=== PATIENT | female | born 1990 | race Caucasian/White ===

== ENCOUNTER 2020-11-07 06:57 | Inpatient (IN) | payer OTHER, MEDICAID, SELFPAY ==
[2020-11-07] VITALS (113 sets, daily range): BP systolic 86–145; BP diastolic 55–98; PULSE 77–112; RESP 16–23; TEMP 36.4–37.6; O2SAT 90–100; BMI 36.7
--- NOTE | ~2020-11-07 | CT_ITS ---
EXAMINATION: CT abdomen pelvis wo con DATE: 11/08/2020 19:39 INDICATION: Unexplained nausea and vomiting, one day status post section TECHNIQUE: Computed tomography (CT) of the abdomen and pelvis was performed without intravenous contr ast. The dose-length product (DLP) was 1013.93 mGy-cm. Automated exposure control and iterative recon struction technique were employed. COMPARISON: None FINDINGS: The lung bases are clear. The heart size is normal. Within the limitations of noncontrast e xamination, the liver, spleen, pancreas, gallbladder, and adrenal glands are normal. There is a 2 mm nonobstructing stone of the right kidney. The left kidney is unremarkable. No pathologically enlarged abdominal or pelvic lymph nodes are identified. There is no free intraperitoneal gas or evidence of bowel obstruction. The uterus demonstrates an expected appearance. The appendix is normal. IMPRESSION: 1. No CT correlate for the patient's symptoms. Reviewed, dictated and finalized at location A.
--- NOTE | 2020-11-07 07:10 | PC.NURSE ---
Pt arrived for induction of labor for IUFD. Briefly explained plan for the day and that they would be allowed to have as many visitors as they need to help them through this time- including their children and any bilingual nanny/training developer. Informed them that due to the acuity of one of my other pt's it would be awhile before I could come in and get the process started. Pt has water and declines anything else from the fridge. Encouraged to rest.
--- NOTE | 2020-11-07 07:35 | PC.NURSE ---
Dr. Alcantar on unit and reviewed our normal IUFD order set with . OK'd those and added some additional labs. Discussed that pt has had 2 previous C/sections and dosage of Cytotec 200 mcg vaginally every 4 hrs confirmed.
--- NOTE | 2020-11-07 07:37 | PM.IMHP ---
H&P: HPI History of Present Illness Date/Time: 11/07/20 07:37 Chief Complaint: 15 week demise Narrative: Kelly is a with 15 week IUFD diagnosed in office last week. Is type 2 diabetic, A1C 10.0 at beginning of , last A1c a month ago was 7.2. History of 2 CS and PreE in prior pregnancies. Other loss was 9-10 week. Review of Systems Review of Systems: All systems reviewed & are unremarkable except as noted in HPI and below [facility] Past Medical History Medical History (Updated 11/07/20 @ 07:44 by Lluvia Alcantar MD) Type 2 diabetes mellitus Surgical History Surgical History (Updated 11/07/20 @ 07:44 by Lluvia Alcantar MD) Delivery by section Meds Home Medications and Allergies Allergies Allergy/AdvReac Type Severity Reaction Status Date / Time No Known Allergies Allergy Unknown Unverified 01/08/16 15:13 Exam Const: General: no acute distress Resp: Effort & Inspection: normal respiratory effort Auscultation: clear to auscultation bilaterally Cardio: Rate: regular rate Rhythm: regular rhythm GI: GI Palp: Yes Soft to palpation Extrem: General: normal to inspection Assessment and Plan Additional Plan induction for 15 week demise misoprostol TORCH labs, A1C, TSH, antiphospholipid antibodies Discussed POC with pt and SO. They are aware that delivery may be precipitous and provider may not be present until after. support given.
[2020-11-07] MEDS: miSOPROStol 200 MCG TABLET VAGINAL ×2 (10:19→14:23)
[2020-11-07 10:32] LABS: Basophils Percent Auto 0.2 % (0.2-1.2); Eosinophils Absolute Auto 0.1 K/mm3 (0-0.3); Eosinophils Percent Auto 0.9 % (0-4.4); Hematocrit 37.7 % (37.0-47.0); Hemoglobin 12.2 g/dL (12.0-15.0); Immature Granulocyte Absolute 0.02 K/mm3 (0.00-0.031); Immature Granulocyte Percent A 0.2 % (0-0.5); Lymphocytes Absolute Auto 3.31 K/mm3 (0.9-3.2); Lymphocytes Percent Auto 40.7 % (18.3-44.2); Mean Corpuscular HGB Conc 32.4 g/dl (32-36); Mean Corpuscular Hemoglobin 26.8 pg (26-34); Mean Corpuscular Volume 82.7 fl (80-100); Mean Platelet Volume 10.3 fl (7.4-10.4); Monocytes Absolute Auto 0.5 K/mm3 (0.1-0.6); Monocytes Percent Auto 6.4 % (2.6-8.5); Neutrophils Absolute Auto 4.2 K/mm3 (1.3-6.7); Neutrophils Percent Auto 51.6 % (45.5-73.1); Platelet Count Result 267 k/mm3 (150-375); Red Blood Count 4.56 M/mm3 (4.2-5.4); Red Cell Distribution Width 13.7 % (11.5-14.5); White Blood Count 8.1 K/mm3 (4.5-10.0)
[2020-11-07 10:55] LABS: Glucose 128 mg/dL (65-110)
[2020-11-07 11:16] LABS: Amphetamine Screen Urine Negative (Negative); Barbiturate Screen Urine Negative (Negative); Benzodiazepines Screen Urine Negative (Negative); Cannabinoid Screen Urine Negative (Negative); Cocaine Screen Urine Negative (Negative); Methadone Screen Urine Negative (Negative); Opiate Screen Urine Negative (Negative); Phencyclidine Screen Urine Negative (Negative)
[2020-11-07 11:27] LABS: Thyroid Stimulating Hormone 0.654 uIU/mL (0.465-4.680)
--- NOTE | 2020-11-07 11:30 | LDADM ---
This patient, Kelly Martin, was admitted to Labor/Delivery/Recovery 110 on 11/07/20 at 06:57. Plans for labor, pain management and were discussed with patient. Patient/family oriented to hospital policies and general routines including ID bracelet, bed and alarms, visiting hours, pain management, procedures, bathroom and other care routines, personal items, smoking policy, room service/diet and guest tray routines, security routines, and visiting hours. Patient/Family are encouraged to report perceived risks to care and to ask questions if they do not understand what they are told or what they should do. See OBIX for further documentation.
[2020-11-07 11:36] LABS: HIV 1/2 Ab P24 Ag Result Negative (Negative)
[2020-11-07 11:38] LABS: Free T4 Free Thyroxine 0.95 ng/mL (0.78-2.19)
[2020-11-07] MEDS: LACTATED RINGERS 1,000 ML 125 ML IV CONT (14:47)
[2020-11-07] MEDS: fentaNYL CITRATE INJ (*CRX) 100 MCG/2 ML VIAL 50 MCG IV PUSH ×3 (14:49→18:51)
[2020-11-07] MEDS: ONDANSETRON INJ 4 MG/2 ML VIAL IV PUSH (15:02)
--- NOTE | 2020-11-07 15:02 | PC.NURSE ---
Met with Pt and FOB; Share program and support presented to them, committing continued support to them once they leave the hospital. Parents seem receptive to Share support. Parents have chosen home disposition, with cremation. Consent signed and Home contacted. Will plan to see pt again after delivery.
[2020-11-07 15:10] LABS: Glucose Point of Care 110 mg/dl (65-105)
--- NOTE | 2020-11-07 16:18 | WPDANESEPP ---
Anes - Eval Pre Procedure Date/Time: 11/07/20 16:18 Pre Op Diagnosis: demise Patient Data Age: 30 Gender: F Height: 1.63 m Weight: 97 kg Last Vital Signs Temp 37.1 C 11/07/20 15:30 Pulse 99 11/07/20 16:18 BP 128/60 11/07/20 16:18 Pulse Ox 99 11/07/20 16:18 Allergies Allergy/AdvReac Type Severity Reaction Status Date / Time No Known Allergies Allergy Unknown Verified 11/07/20 11:34 Home Medications Medication Instructions Recorded Confirmed Type famotidine 20 mg PO BID 11/07/20 11/07/20 History insulin glargine [Lantus Solostar 47 unit SUBCUT QACBREAK 11/07/20 11/07/20 History U-100 Insulin] insulin glargine [Lantus Solostar 78 unit SUBCUT HS 11/07/20 11/07/20 History U-100 Insulin] metoclopramide HCl 5 mg PO Q1-2D PRN 11/07/20 11/07/20 History omeprazole 40 mg PO DAILY 11/07/20 11/07/20 History ondansetron 8 mg PO Q8H PRN 11/07/20 11/07/20 History sucralfate 1 g PO QID 11/07/20 11/07/20 History Laboratory Tests 11/07/20 11/07/20 11/07/20 09:47 09:47 09:47 WBC 8.1 K/mm3 K/mm3 (4.5-10.0) RBC 4.56 M/mm3 M/mm3 (4.2-5.4) Hgb 12.2 g/dL g/dL (12.0-15.0) Hct 37.7 % % (37.0-47.0) MCV 82.7 fl fl (80-100) MCH 26.8 pg pg (26-34) MCHC 32.4 g/dl g/dl (32-36) RDW 13.7 % % (11.5-14.5) Plt Count 267 k/mm3 k/mm3 (150-375) MPV 10.3 fl fl (7.4-10.4) Immature Gran % (Auto) 0.2 % % (0-0.5) Neut % (Auto) 51.6 % % (45.5-73.1) Lymph % (Auto) 40.7 % % (18.3-44.2) [place] % (Auto) 6.4 % % (2.6-8.5) Eos % (Auto) 0.9 % % (0-4.4) Baso % (Auto) 0.2 % % (0.2-1.2) Lymph # (Auto) 3.31 K/mm3 H K/mm3 (0.9-3.2) [place] # (Auto) 0.5 K/mm3 K/mm3 (0.1-0.6) Eos # (Auto) 0.1 K/mm3 K/mm3 (0-0.3) Baso # (Auto) 0.0 K/mm3 K/mm3 (0.0-0.1) Abs Immat Gran (auto) 0.02 K/mm3 K/mm3 (0.00-0.031) Absolute Neuts (auto) 4.2 K/mm3 K/mm3 (1.3-6.7) Absolute Nucleated RBC 0.0 K/mm3 K/mm3 (0.0-0.012) Nucleated RBC % 0.0 % % (0.0-0.2) LA PTT Screen Pending dRVVT Screen Pending dRVVT Additional Test Pending Lupus Anticoag Interp Pending Glucose 128 mg/dL H mg/dL (65-110) POC Capillary Glucose TSH 0.654 uIU/mL uIU/mL (0.465-4.680) Free T4 Urine Opiates Screen Urine Methadone Screen Ur Barbiturates Screen Ur Phencyclidine Scrn Ur Amphetamine Screen U Benzodiazepines Scrn Urine Cocaine Screen U Cannabinoids Screen Beta-2-GPI IgG Ab Beta-2-GPI IgA Ab Beta-2-GPI IgM Ab Anti-Cardiolipin IgG Ab Anti-Cardiolipin IgA Ab Anti-Cardiolipin IgM Ab RPR CMV IgG Ab CMV IgM Ab HIV 1&2 Ab/P24 Ag 4thGn Parvovirus B19 IgG Intp Parvovirus B19 IgM Intp Toxoplasma IgG Ab Toxoplasma IgM Ab Blood Type Antibody Screen KB Hemoglobin 11/07/20 11/07/20 11/07/20 09:47 09:47 09:47 WBC RBC Hgb Hct MCV MCH MCHC RDW Plt Count MPV Immature Gran % (Auto) Neut % (Auto) Lymph % (Auto) [place] % (Auto) Eos % (Auto) Baso % (Auto) Lymph # (Auto) [place] # (Auto) Eos # (Auto) Baso # (Auto) Abs Immat Gran (auto) Absolute Neuts (auto) Absolute Nucleated RBC Nucleated RBC % LA PTT Screen dRVVT S
--- NOTE | 2020-11-07 17:12 | PM.OBPRVD ---
OB - Delivery Note Procedure Delivery date: 11/07/20 Procedure: vaginal delivery Intrapartal events: Other (IUFD) Induction method: per misoprostol protocol Delivery monitor: none Route of delivery: Laceration Description: None Specimen: Yes [place] Baby Date of : 11/07/20 Time of : 16:56 Weeks of gestation at delivery: 15 gender: Female Narrative: fetus delivered, cord cut and clamped and handed to mother
--- NOTE | 2020-11-07 19:05 | PM.IMHP ---
H&P: HPI History of Present Illness Date/Time: 11/07/20 19:05 This patient is a 30-year-old multiparous female who presented labor and delivery for induction of Miscarriage for a 3rd team to 14 week missed AB. she passed the fetus approximately the 40 minutes ago and has continued to bleed. The placenta has not passed. She remains asymptomatic from the bleeding. She denies any chest pain or shortness of breath. She denies any nausea, vomiting, fever, chills. Chief Complaint: post hemorrhage Review of Systems Constitutional: Constitutional: Reports no additional constitutional complaints, Denies fatigue, Denies headache(s), Denies lethargy and Denies weakness Eyes: Eyes: Reports no additional eye complaints, Denies blurry vision and Denies photophobia ENT: Reports as per HPI, Denies headache(s) and Denies neck pain Cardiovascular: Cardiovascular: Denies chest pain, Denies diaphoresis, Denies leg edema, Denies palpitations and Denies dyspnea Respiratory: Respiratory: Denies hemoptysis, Denies dyspnea and Denies wheezing Gastrointestinal: Gastrointestinal: Denies abdominal pain, Denies melena, Denies bloating, Denies hematochezia, Denies nausea and Denies vomiting Genitourinary: Genitourinary: Reports no additional female genitourinary complaints Musculoskeletal: Musculoskeletal: Denies joint swelling, Denies neck pain, Denies numbness and Denies stiffness Neurologic: Denies Abnormal speech present, Denies confusion, Denies headache(s), Denies numbness and Denies weakness Psychiatric: Psychiatric: Denies anxiety, Denies confusion, Denies depression, Denies homicidal ideation and Denies suicidal ideation Endocrine: Endocrine: Denies fatigue and Denies palpitations Allergic/Immunologic: Allergic/Immunologic: Denies wheezing PMFSH Past Medical History Medical History Type 2 diabetes mellitus Surgical History Surgical History Delivery by section Family History Family History Mother Diabetes mellitus Father Diabetes mellitus Sibling Diabetes mellitus Social History Social History Smoking status: Never smoker Second hand tobacco smoke exposure: No Substance use: never Spiritual care concerns: No Meds Home Medications and Allergies Home Medications Medication Instructions Recorded Confirmed Type famotidine 20 mg PO BID 11/07/20 11/07/20 History insulin glargine [Lantus Solostar 47 unit SUBCUT QACBREAK 11/07/20 11/07/20 History U-100 Insulin] insulin glargine [Lantus Solostar 78 unit SUBCUT HS 11/07/20 11/07/20 History U-100 Insulin] metoclopramide HCl 5 mg PO Q1-2D PRN 11/07/20 11/07/20 History omeprazole 40 mg PO DAILY 11/07/20 11/07/20 History ondansetron 8 mg PO Q8H PRN 11/07/20 11/07/20 History sucralfate 1 g PO QID 11/07/20 11/07/20 History Allergies Allergy/AdvReac Type Severity Reaction Status Date / Time No Known Allergies Allergy Unknown Verified 11/07/20 11:34 Vital Signs Vital Signs - 24 hr 11/07/20 10:15 11/07/20 10:16 11/07/20 10:48 Temperature 98.7 F Pulse Rate 79 79 Blood Pressure 123/72 120/75 Pulse Oximetry 11/07/20 10:59 11/07/20 11:30 11/07/20 11:59 Temperature Pulse Rate 80 77 86 Blood Pressure 134/87 129/73 135/79 Pulse Oximetry 11/07/20 12:29 11/07/20 12:59 11/07/20 13:00 Temperature 97.8 F Pulse Rate 84 81 Blood Pressure 132/81 133/78 Pulse Oximetry 11/07/20 13:59 11/07/20 14:00 11/07/20 14:29 Temperature 98.4 F Pulse Rate 88 85 Blood Pressure 133/83 132/76 Pulse Oximetry 11/07/20 14:59 11/07/20 15:00 11/07/20 15:29 Temperature 98.3 F Pulse Rate 93 89 Blood Pressure 125/71 133/71 Pulse Oximetry 11/07/20 15:30 11/07/20 15:40 11/07/20 15:4
--- NOTE | 2020-11-07 19:21 | WPDANESEPPF ---
Anes - Initial Pre Proc Eval Procedure: Operation Date: 11/07/20 19:45 Proposed Procedures p D&C Suction and Sharp - Rd Bui MD Date/Time: 11/07/20 19:21 Surgeon: Rd Bui MD Pre Op Diagnosis: demise Patient Data Age: 30 Gender: F Height: 1.63 m Weight: 97 kg Last Vital Signs Temp 37.6 C 11/07/20 16:30 Pulse 99 11/07/20 19:15 BP 125/67 11/07/20 19:15 Pulse Ox 100 11/07/20 19:18 Allergies Allergy/AdvReac Type Severity Reaction Status Date / Time No Known Allergies Allergy Unknown Verified 11/07/20 11:34 Home Medications Medication Instructions Recorded Confirmed Type famotidine 20 mg PO BID 11/07/20 11/07/20 History insulin glargine [Lantus Solostar 47 unit SUBCUT QACBREAK 11/07/20 11/07/20 History U-100 Insulin] insulin glargine [Lantus Solostar 78 unit SUBCUT HS 11/07/20 11/07/20 History U-100 Insulin] metoclopramide HCl 5 mg PO Q1-2D PRN 11/07/20 11/07/20 History omeprazole 40 mg PO DAILY 11/07/20 11/07/20 History ondansetron 8 mg PO Q8H PRN 11/07/20 11/07/20 History sucralfate 1 g PO QID 11/07/20 11/07/20 History Laboratory Tests 11/07/20 11/07/20 11/07/20 09:47 09:47 09:47 WBC 8.1 K/mm3 K/mm3 (4.5-10.0) RBC 4.56 M/mm3 M/mm3 (4.2-5.4) Hgb 12.2 g/dL g/dL (12.0-15.0) Hct 37.7 % % (37.0-47.0) MCV 82.7 fl fl (80-100) MCH 26.8 pg pg (26-34) MCHC 32.4 g/dl g/dl (32-36) RDW 13.7 % % (11.5-14.5) Plt Count 267 k/mm3 k/mm3 (150-375) MPV 10.3 fl fl (7.4-10.4) Immature Gran % (Auto) 0.2 % % (0-0.5) Neut % (Auto) 51.6 % % (45.5-73.1) Lymph % (Auto) 40.7 % % (18.3-44.2) [place] % (Auto) 6.4 % % (2.6-8.5) Eos % (Auto) 0.9 % % (0-4.4) Baso % (Auto) 0.2 % % (0.2-1.2) Lymph # (Auto) 3.31 K/mm3 H K/mm3 (0.9-3.2) [place] # (Auto) 0.5 K/mm3 K/mm3 (0.1-0.6) Eos # (Auto) 0.1 K/mm3 K/mm3 (0-0.3) Baso # (Auto) 0.0 K/mm3 K/mm3 (0.0-0.1) Abs Immat Gran (auto) 0.02 K/mm3 K/mm3 (0.00-0.031) Absolute Neuts (auto) 4.2 K/mm3 K/mm3 (1.3-6.7) Absolute Nucleated RBC 0.0 K/mm3 K/mm3 (0.0-0.012) Nucleated RBC % 0.0 % % (0.0-0.2) LA PTT Screen Pending dRVVT Screen Pending dRVVT Additional Test Pending Lupus Anticoag Interp Pending Glucose 128 mg/dL H mg/dL (65-110) POC Capillary Glucose TSH 0.654 uIU/mL uIU/mL (0.465-4.680) Free T4 Urine Opiates Screen Urine Methadone Screen Ur Barbiturates Screen Ur Phencyclidine Scrn Ur Amphetamine Screen U Benzodiazepines Scrn Urine Cocaine Screen U Cannabinoids Screen Beta-2-GPI IgG Ab Beta-2-GPI IgA Ab Beta-2-GPI IgM Ab Anti-Cardiolipin IgG Ab Anti-Cardiolipin IgA Ab Anti-Cardiolipin IgM Ab RPR CMV IgG Ab CMV IgM Ab HIV 1&2 Ab/P24 Ag 4thGn Parvovirus B19 IgG Intp Parvovirus B19 IgM Intp Toxoplasma IgG Ab Toxoplasma IgM Ab Blood Type Antibody Screen KB Hemoglobin 11/07/20 11/07/2011/07/21 09:47 09:47 09:47 WBC RBC Hgb Hct MCV MCH MCHC RDW Plt Count MPV Immature Gran % (Auto) Neut % (Auto) Lymph % (Auto) [place] % (Auto) Eos % (Auto) Baso % (Auto) Lymph # (Auto) [place] # (Auto) Eos # (Auto) Baso # (Auto) Abs Immat Gran (au
--- NOTE | 2020-11-07 19:53 | SUR.OPER ---
EPIDURAL REMOVED PER ANESTHESIA/TIP OF CATHETER INTACT.
[2020-11-07] MEDS: LACTATED RINGERS 1,000 ML 30 ML IV CONT (19:59)
--- NOTE | 2020-11-07 20:07 | W.PM.PROC2 ---
Procedure Note - Detailed Date of Procedure 11/07/20 Pre-op Diagnosis retained placenta, missed Post-op Diagnosis same Procedure Performed Suction D&C Surgeon Rd Bui MD Anesthesia MAC Indications retained placenta Findings normal-appearing vulva vagina and cervix to. placenta near the cervical os, 14 cm uterus, severely anteverted uterus Description of Procedure the patient was taken the operating room. She was prepped and draped in dorsal lithotomy position after induction of mac anesthesia. A speculum was placed in the vagina. Cervix grasped with tenaculum. The cervix was dilated to about 1 cm Using Perez dilators. A 10. [place] curved curette was used to perform suction D&C. The curette was introduced and vacuum was applied. The curette was removed over all surfaces of the intrauterine cavity multiple times. This was done until all the surfaces were clear and had the familiar grainy texture they can be felt through the instrument. A sharp curette was then used to curettage all the surfaces. The suction cup was then reapplied 1 more time to remove any debris. The instruments were removed. The speculum and tenaculum were removed. The patient tolerated the procedure well. She was taken recovery room stable condition. Estimated Blood Loss 100.0 Drains No Packing No Pathology yes Complications No immediate complications Condition stable Disposition floor
[2020-11-07 20:35] LABS: Hemoglobin A1C 6.2 % (<5.7)
--- NOTE | 2020-11-07 20:44 | SUR.PHASEI ---
PT REPORT CALLED TO FLOOR. AWAITING TRANSPORT
[2020-11-07 22:44] LABS: Glucose Point of Care 112 mg/dl (65-105)
[2020-11-08] VITALS (18 sets, daily range): BP systolic 115–150; BP diastolic 66–86; PULSE 85–104; RESP 16–18; TEMP 36.3–37.2; O2SAT 99–100
[2020-11-08] MEDS: IBUPROFEN 600 MG TABLET PO (05:45)
[2020-11-08 07:22] LABS: Glucose Point of Care 121 mg/dl (65-105)
[2020-11-08] MEDS: ACETAMINOPHEN 325 MG TABLET 650 MG PO (07:27)
[2020-11-08] MEDS: ONDANSETRON HCL ODT 4 MG TABLET 8 MG PO (07:28)
[2020-11-08 07:35] LABS: Hematocrit 31.8 % (37.0-47.0); Hemoglobin 10.2 g/dL (12.0-15.0)
--- NOTE | 2020-11-08 07:35 | PC.NURSE ---
John Vernon here to see pt; informed that [facility] is down and they are currently outsourcing that service to a 3rd constitution party that charges almost $500 dollars for a cremation. He will make some calls this morning to see what else might be available.
--- NOTE | 2020-11-08 07:50 | PC.NURSE ---
John Vernon called back with another option for cremation for them to consider.
--- NOTE | 2020-11-08 08:00 | PC.NURSE ---
Addendum entered by Velma Alcaraz RN 11/08/20 09:10: per pt request. Original Note: Pt still nauseated after emesis. Holding PO meds for now.
--- NOTE | 2020-11-08 08:17 | PC.NURSE ---
Dr. Bui on unit and informed pt's Hgb is 10.2, her accucheck was 121, pt is feeling a lot of cramping but her bleeding is normal, pt nauseated and had an emesis this morning. MD in to see and talk with pt and significant other.
--- NOTE | 2020-11-08 08:19 | PM.OBPNVD ---
OB - PN: Subj Subjective Date/time seen: 11/08/20 08:19 Patient reports nausea this a.m., she vomited once. She receiving Zofran. Her bleeding is minimal. She denies any fever or chills. OB - PN: Obj Data Labs CBC & Chem 7: 11/08/20 06:58 11/07/20 09:47 Labs: Laboratory Results - last 24 hr 11/07/20 11/07/20 11/07/20 09:28 09:47 09:47 WBC 8.1 RBC 4.56 Hgb 12.2 Hct 37.7 MCV 82.7 MCH 26.8 MCHC 32.4 RDW 13.7 Plt Count 267 MPV 10.3 Immature Gran % (Auto) 0.2 Neut % (Auto) 51.6 Lymph % (Auto) 40.7 [place] % (Auto) 6.4 Eos % (Auto) 0.9 Baso % (Auto) 0.2 Lymph # (Auto) 3.31 H [place] # (Auto) 0.5 Eos # (Auto) 0.1 Baso # (Auto) 0.0 Abs Immat Gran (auto) 0.02 Absolute Neuts (auto) 4.2 Absolute Nucleated RBC 0.0 Nucleated RBC % 0.0 Glucose 128 H POC Capillary Glucose Hemoglobin A1c 6.2 H TSH 0.654 Free T4 Urine Opiates Screen Urine Methadone Screen Ur Barbiturates Screen Ur Phencyclidine Scrn Ur Amphetamine Screen U Benzodiazepines Scrn Urine Cocaine Screen U Cannabinoids Screen HIV 1&2 Ab/P24 Ag 4thGn Blood Type Antibody Screen KB Hemoglobin 11/07/20 11/07/20 11/07/20 09:47 09:47 09:47 WBC RBC Hgb Hct MCV MCH MCHC RDW Plt Count MPV Immature Gran % (Auto) Neut % (Auto) Lymph % (Auto) [place] % (Auto) Eos % (Auto) Baso % (Auto) Lymph # (Auto) [place] # (Auto) Eos # (Auto) Baso # (Auto) Abs Immat Gran (auto) Absolute Neuts (auto) Absolute Nucleated RBC Nucleated RBC % Glucose POC Capillary Glucose Hemoglobin A1c TSH Free T4 0.95 Urine Opiates Screen Urine Methadone Screen Ur Barbiturates Screen Ur Phencyclidine Scrn Ur Amphetamine Screen U Benzodiazepines Scrn Urine Cocaine Screen U Cannabinoids Screen HIV 1&2 Ab/P24 Ag 4thGn Negative Blood Type Antibody Screen KB Hemoglobin Negative 11/07/20 11/07/20 11/07/20 09:47 09:51 14:29 WBC RBC Hgb Hct MCV MCH MCHC RDW Plt Count MPV Immature Gran % (Auto) Neut % (Auto) Lymph % (Auto) [place] % (Auto) Eos % (Auto) Baso % (Auto) Lymph # (Auto) [place] # (Auto) Eos # (Auto) Baso # (Auto) Abs Immat Gran (auto) Absolute Neuts (auto) Absolute Nucleated RBC Nucleated RBC % Glucose POC Capillary Glucose 110 H Hemoglobin A1c TSH Free T4 Urine Opiates Screen Negative Urine Methadone Screen Negative Ur Barbiturates Screen Negative Ur Phencyclidine Scrn Negative Ur Amphetamine Screen Negative U Benzodiazepines Scrn Negative Urine Cocaine Screen Negative U Cannabinoids Screen Negative HIV 1&2 Ab/P24 Ag 4thGn Blood Type O Positive Antibody Screen Negative KB Hemoglobin 11/07/20 11/08/20 11/08/20 22:42 06:58 07:07 WBC RBC Hgb 10.2 L Hct 31.8 L MCV MCH MCHC RDW Plt Count MPV Immature Gran % (Auto) Neut % (Auto) Lymph % (Auto) [place] % (Auto) Eos % (Auto) Baso % (Auto) Lymph # (Auto) [place] # (Auto) Eos # (Auto) Baso # (Auto) Abs Immat Gran (auto) Absolute Neuts (auto) Absolute Nucleated RBC Nucleated RBC % Glucose POC Capillary Glucose 112 H 121 H Hemoglobin A1c TSH Free T4 Urine Opiates Screen Urine Methadone Screen Ur Barbiturates Screen Ur Phencyclidine Scrn Ur Amphetamine Screen U Benzodiazepines Scrn Urine Cocaine Screen U Cannabinoids Screen HIV 1&2 Ab/P24 Ag 4thGn Blood Type Antibody Screen KB Hemoglobin OB - PN A/P Assessment and Plan (1) Missed : Code(s): O02.1 - Missed Status: Acute (2) hemorrhage: Code(s): O72.1 - Other
--- NOTE | 2020-11-08 08:20 | PC.NURSE ---
Pt and significant other informed the Trevor called back and was able to find [facility] in [place] that would perform the cremation for only the cost of the legal fees required to do the paperwork for the cremation, but no actual charge for performing the creation. They would like to proceed with this home.
--- NOTE | 2020-11-08 08:30 | PC.NURSE ---
Pt and Chris are going to try to sleep again. remains at bedside on [place] [address]. Informed pt that I wouldn't come in to wake her; waiting for her to call me when she is awake.
[2020-11-08 09:05] LABS: Rapid Plasma Reagin Non-Reactive (NonReactive)
--- NOTE | 2020-11-08 11:00 | PC.NURSE ---
Pt states she had over a 2 hr nap and woke up feeling fine, but became nauseated and had an emesis when she was up to the bathroom. Pt states she feels like she needs to void, but can't.
--- NOTE | 2020-11-08 11:05 | PC.NURSE ---
Small rubra was noted on peripad. Assisted back to bed. Unable to palpate any bladder distention, but pt does have some right sided suprapubic discomfort with palpation.
[2020-11-08] MEDS: SUCRALFATE 1 GM TABLET PO ×2 (11:06→13:41)
--- NOTE | 2020-11-08 11:15 | PC.NURSE ---
Rosana Chaney RN from mom baby unit here and performed bladder scan to r/o bladder distention- results were 0, 48 and 80 ml.
--- NOTE | 2020-11-08 11:20 | PC.NURSE ---
Dr. Bui informed pt didn't eat this morning, am meds of metformin, carafate, and omeprazole were held this am due to N & V. Pt had over a 2 hr nap and initially felt good, but became nauseated with emesis when she got up. Informed of pt's c/o urge to urinate, but unable to void- has only voided 100 ml this am. Informed had Hanna from mom/baby unit perform bladder scan and 0-80 ml were seen in bladder. Orders received.
[2020-11-08] MEDS: LACTATED RINGERS 1,000 ML 200 ML IV CONT (12:05)
[2020-11-08] MEDS: METOCLOPRAMIDE HCL INJ 10 MG/2 ML VIAL IV PUSH ×2 (12:08→19:07)
[2020-11-08] MEDS: FAMOTIDINE 20 MG/2 ML VIAL IV PUSH (12:11)
--- NOTE | 2020-11-08 13:16 | PC.NURSE ---
Orthostatic BP's done as up assisted up to bathroom.
--- NOTE | 2020-11-08 13:30 | PC.NURSE ---
Pt states she felt like she was able to fully empty her bladder. Denies nausea. Lower abdominal cramping is only a 1.
[2020-11-08] MEDS: PANTOPRAZOLE 40 MG TABLET PO (13:34)
[2020-11-08] MEDS: metFORMIN HCL 500 MG TABLET PO (13:36)
--- NOTE | 2020-11-08 13:41 | PC.NURSE ---
Pt willing to try ordering some food. AM meds (Metformin and Carafate) that were held due to nausea and vomiting were given. Pt has a menu and the phone to order.
--- NOTE | 2020-11-08 14:20 | PC.NURSE ---
Fetus taken to pathology with Release of Body consent and copy of Disposition consent.
--- NOTE | 2020-11-08 14:30 | PC.NURSE ---
Pt wanting to go home, but with recent emesis, informed pt I would like her to at least nibble on some food and be able to keep some liquids down first.
--- NOTE | 2020-11-08 14:50 | PC.NURSE ---
Jello and diet white soda given since pt didn't like her beef broth.
--- NOTE | 2020-11-08 16:13 | PC.NURSE ---
Pt states she isn't feeling nauseated, but having a lot of belching.
--- NOTE | 2020-11-08 16:14 | PC.NURSE ---
Called Dr. Bui and informed him pt would like to go home. Informed him of continued intermittent nausea with emesis today with limited oral intake, afebrile, small lochia, informed of orthostatic BP's. Discussed that pt only took Levemir and an am Metformin prior to . Informed blood glucose is now 150. Discharge meds adjusted and order for discharge received.
--- NOTE | 2020-11-08 16:45 | PC.NURSE ---
Dr. Bui informed pt had another emesis as I was preparing her discharge report. Pt still wants to go home, but I'm concerned she won't be able to eat or drink at home. Orders received for new IV fluids, CBC and CMP.
[2020-11-08] MEDS: DEXTROSE 5%/LACTATED RINGERS 1,000 ML 200 ML IV CONT (17:25)
[2020-11-08 17:44] LABS: Basophils Percent Auto 0.2 % (0.2-1.2); Eosinophils Absolute Auto 0.1 K/mm3 (0-0.3); Eosinophils Percent Auto 0.4 % (0-4.4); Hematocrit 32.5 % (37.0-47.0); Hemoglobin 10.7 g/dL (12.0-15.0); Immature Granulocyte Absolute 0.05 K/mm3 (0.00-0.031); Immature Granulocyte Percent A 0.4 % (0-0.5); Lymphocytes Absolute Auto 2.35 K/mm3 (0.9-3.2); Lymphocytes Percent Auto 19.2 % (18.3-44.2); Mean Corpuscular HGB Conc 32.9 g/dl (32-36); Mean Corpuscular Volume 81.9 fl (80-100); Mean Platelet Volume 10.5 fl (7.4-10.4); Monocytes Absolute Auto 0.6 K/mm3 (0.1-0.6); Monocytes Percent Auto 4.9 % (2.6-8.5); Neutrophils Absolute Auto 9.2 K/mm3 (1.3-6.7); Neutrophils Percent Auto 74.9 % (45.5-73.1); Platelet Count Result 281 k/mm3 (150-375); Red Blood Count 3.97 M/mm3 (4.2-5.4); Red Cell Distribution Width 13.6 % (11.5-14.5); White Blood Count 12.3 K/mm3 (4.5-10.0)
[2020-11-08 17:53] LABS: Alanine Aminotransferase 14 U/L (4-35); Albumin Level 3.7 g/dL (3.5-5.1); Alkaline Phosphatase 56 U/L (38-126); Anion Gap 7 mmol/L (8-16); Aspartate Amino Transferase 18 U/L (14-36); Bilirubin,Total 0.6 mg/dL (0.2-1.3); Calcium 8.9 mg/dL (8.4-10.2); Carbon Dioxide 24 mmol/L (22-30); Chloride 103 mmol/L (98-107); Estimated CRCL calculation 236 ml/min; Estimated Glomerular Filt Rate > 60; Glucose 148 mg/dL (65-110); Potassium 3.6 mmol/L (3.4-5.0); Sodium 134 mmol/L (137-145)
[2020-11-08 18:19] LABS: Glucose Point of Care 150 mg/dl (65-105)
[2020-11-08 18:35] LABS: Blood Urea Nitrogen < 2 mg/dL (7-17)
--- NOTE | 2020-11-08 18:35 | PC.NURSE ---
Dr. Bui informed of lab results. Orders received. Discussed insulin orders that are still on her med sheet and the omeprazole and carafate that pt doesn't want to take anymore. Discussed that he was going to send her home on antibiotics, but she hasn't received any today. OK to cancel insulin. To call MD for BS >200.
[2020-11-08] MEDS: metroNIDAZOLE 500 MG/ISO 100ML 500 MG/100 ML BAG 100 MG IVPB (20:09)
[2020-11-08 20:26] LABS: Glucose Point of Care 161 mg/dl (65-105)
[2020-11-08] MEDS: levoFLOXacin 500 MG/D5W 100 ML 500 MG/100 ML BAG 100 MG IVPB (21:45)
[2020-11-09 00:13] LABS: Glucose Point of Care 152 mg/dl (65-105)
[2020-11-09] MEDS: ONDANSETRON INJ 4 MG/2 ML VIAL IV PUSH ×2 (00:17→06:16)
[2020-11-09] MEDS: FAMOTIDINE 20 MG/2 ML VIAL IV PUSH (00:20)
[2020-11-09 00:26] VITALS: PULSE 92; O2SAT 98
[2020-11-09 00:27] VITALS: BP 122/74; PULSE 93
[2020-11-09 00:28] VITALS: RESP 18; TEMP 36.4
--- NOTE | 2020-11-09 00:50 | PC.NURSE ---
0010 - upon entering the pt room to obtain blood sugar, pt was sitting up awake stating she was nauseated and would like some nausea medicine. Scant emesis noted in emesis bag. pt states she feels good otherwise, denies any pain.
--- NOTE | 2020-11-09 00:53 | PC.NURSE ---
0025 - Plan of care discussed with pt; pt agrees and states she has no questions or concerns at this time. Pt states she will call out if she has any needs.
[2020-11-09] MEDS: DEXTROSE 5%/LACTATED RINGERS 1,000 ML 200 ML IV CONT ×2 (01:12→06:12)
[2020-11-09 04:23] LABS: Glucose Point of Care 173 mg/dl (65-105)
--- NOTE | 2020-11-09 04:24 | PC.NURSE ---
0421 - pt just waking upon entering the room. Pt denies any pain or nausea. Pt denies any needs at this time, and will call out if she has any needs. Call light within reach.
--- NOTE | 2020-11-09 08:21 | PM.GYNPNOP ---
CIRCUIT COURT MAGISTRATE - A/P Postoperative Procedures: Procedures Operation Date: 11/07/20 19:45 Actual Procedure Side Surgeon p D&C Suction and Sharp Not Applicable Rd Bui MD Postoperative day: 2 Postoperative plan: other (HOme today if tolerating food.) Time Spent With Patient Time: Total time spent is greater than 50% in coordination of care (as documented) at patient's floor/unit and/or counseling patient: Time with patient: less than [address] MAGISTRATE- PN:Subj Post-Op Subjective Date/time seen: 11/09/20 08:21 Interval history: Tolerating clears with no emesis since around midnight. No nausea now. Bleeding minimal. Feels ok. Wants to go home. Subjective: patient reports feeling better Exam Narrative: NAD abdomen soft, nontender, fundus firm below the umbilicus Extremities nontender, 1+ edema [facility] MAGISTRATE - PN: Obj Data Vital Signs Vital Signs: Vital Signs - 24 hr 11/08/20 12:14 11/08/20 12:15 11/08/20 13:16 Temperature 98.8 F 99.0 F Pulse Rate 91 104 H Respiratory Rate 18 Blood Pressure 126/69 146/78 H Pulse Oximetry 100 100 11/08/20 13:17 11/08/20 13:18 11/08/20 13:20 Temperature Pulse Rate 88 93 99 Respiratory Rate Blood Pressure 146/78 H 142/86 H 150/78 H Pulse Oximetry 100 100 11/08/20 13:33 11/08/20 16:14 11/08/20 16:15 Temperature 97.9 F Pulse Rate 97 100 99 Respiratory Rate 18 Blood Pressure 149/76 H 148/83 H 143/84 H Pulse Oximetry 11/08/20 17:33 11/08/20 20:17 11/08/20 20:18 Temperature 97.6 F 97.8 F Pulse Rate 100 93 Respiratory Rate 18 Blood Pressure 126/73 115/69 Pulse Oximetry 100 99 11/09/20 00:26 11/09/20 00:27 11/09/20 00:28 Temperature 97.6 F Pulse Rate 93 Respiratory Rate 18 Blood Pressure 122/74 Pulse Oximetry 98 Intake/Output Intake/Output: Intake & Output 11/06/20 11/07/20 11/08/20 11/09/20 23:59 23:59 23:59 23:59 Intake Total 2000 2500 1000 Output Total 691 0300 1350 Balance 3659 -968 -041 Meds/Results Medications: Active Medications Generic Name Dose Route Start Last Admin Trade Name Freq PRN Reason Stop Dose Admin Acetaminophen 650 mg 11/08/20 07:19 11/08/20 07:27 Acetaminophen 325 Mg Tablet PO 650 mg Q6H PRN Administration Mild Pain (1-3) or Fever Dextrose 12.5 gm 11/08/20 02:24 Dextrose 50% 25 Gm/50 Ml Syringe IV PUSH PRN PRN Hypoglycemia Protocol Famotidine 20 mg 11/08/20 21:35 Famotidine 20 Mg Tablet PO Q12HR CANDIDA Famotidine 20 mg 11/08/20 21:00 11/09/20 00:20 Famotidine 20 Mg/2 Ml Vial IV PUSH 20 mg Q12H CANDIDA Administration Glucagon 1 mg 11/08/20 02:24 Glucagon For Inj 1 Mg Vial IM PRN PRN Hypoglycemia Protocol Glucose 15 gm 11/08/20 02:24 Glucose Oral Gel 15 Gm Of Glucse In 37.5 Gm Tube PO PRN PRN Hypoglycemia Protocol Dextrose 1,000 mls @ 100 mls/hr 11/08/20 02:24 Dextrose 5% 1,000 Ml IVPB PRN PRN Hypoglycemia Protocol Dextrose/Lactated Ringer's 1,000 mls @ 200 mls/hr 11/08/20 16:45 11/09/20 06:12 Dextrose 5%/Lactated Ringers IV CONT 200 mls/hr .Q5H CANDIDA Administration Levofloxacin/Dextrose 500 mg in 100 mls @ 100 mls/hr 11/08/20 20:00 11/08/20 21:45 Levaquin 500 Mg/D5w 100 Ml IVPB 100 mls/hr Q24H CANDIDA Administration Metronidazole 500 mg in 100 mls @ 100 mls/hr 11/09/20 09:00 11/08/20 20:09 Flagyl 500 Mg/Iso Soln 100 Ml IVPB 100 mls/hr DAILY CANDIDA Administration Ibuprofen 600 mg 11/08/20 05:28 11/08/20 05:45 Ibuprofen 600 Mg Tablet PO 600 mg Q6H PRN Administration Cramping Metformin HCl 500 mg 11/08/20 08:00 11/08/20 13:36 Metformin Hcl 500 Mg Tablet PO 500 mg DAILY@0800 CANDIDA Administration Metoclopramide HCl 5 mg 11/07/20 20:49 Metoclopramide Hcl 5 Mg Tablet PO DAILY PRN Nausea Metoclopramide HCl 10 mg 11/08/20 16:45 11/08/20 19:07 Metoclopramide Hcl Inj 10 Mg/2 Ml Vial IV PUSH 10 mg Q6H P
[2020-11-09 08:25] LABS: Glucose Point of Care 156 mg/dl (65-105)
[2020-11-09 08:27] VITALS: BP 127/75; PULSE 90
[2020-11-09] MEDS: metFORMIN HCL 500 MG TABLET PO (09:00)
[2020-11-09] MEDS: METOCLOPRAMIDE HCL INJ 10 MG/2 ML VIAL IV PUSH (09:02)
--- NOTE | 2020-11-09 09:52 | PC.NURSE ---
0930--Pt. ate yogurt and half a piece of toast at approx. 0915. Will continue to monitor at this time.
--- NOTE | 2020-11-09 11:43 | PC.NURSE ---
1030 Visited with Katy this a.m; they are preparing for discharge home today. Both parents appropriately tearful. Both concerned about their children at home. Discussed triggers that could happen and how to learn to anticipate them. Discussed Share support through the Share program...Committed to them f/u in the next week and beyond as they need/want. Parents have mementos. home has just contacted them to make arrangements there.
[2020-11-10 01:51] LABS: Anti Cardio Antibody IgM <2.0 MPL-U/mL (<20.0); Anti Cardiolipin Antibody IgA <2.0 APL-U/mL (<20.0); Anti Cardiolipin Antibody IgG <2.0 GPL-U/mL (<20.0)
[2020-11-10 19:48] LABS: CMV IgM Antibody <30.00 AU/mL (<30.00)
[2020-11-10 21:05] LABS: Lupus dRVVT 1:1 Mix Interpreta Not Indicated; Lupus dRVVT Screen 32 sec (<=45); PTT-LA Screen 33 sec (<=40)
[2020-11-11 20:01] LABS: Toxoplasma IgG Antibody <7.20 IU/mL (<7.20); Toxoplasma IgM Antibody <8.00 AU/mL (<8.00)
--- NOTE | 2020-11-19 07:50 | PM.OBDSVD ---
DS: Admitting Diagnosis Admitting Diagnosis missed 14 weeks DS: Discharge Diagnosis Discharge Diagnosis (1) Missed : Code(s): O02.1 - Missed Status: Acute (2) hemorrhage: Code(s): O72.1 - Other immediate hemorrhage Status: Acute OB - DS: Summary OB Procedures : Ultrasound OB Procedures Intrapartum: Spontaneous Vag Delivery OB Procedures: : Curettage Peripartum Data Delivery Method: Natural Vaginal Procedures: Procedures Operation Date: 11/07/20 19:45 Actual Procedure Side Surgeon p D&C Suction and Sharp Not Applicable Rd Bui MD complications: retained placenta Status at Discharge Functional status at discharge: independent ambulation Time Spent with Patient Time attestation: Total time spent providing and/or coordinating discharge services: Time spent: Less than 30 minutes Exam Narrative: NAD abdomen soft, appropriately tender Ext non tender, 1+ edema DS: Data Data Completed and Pending Completed studies during hospitalization: Pending at discharge 11/07/20 19:50 Surgical [PTH] Routine Discharge Plan Discharge Attending physician on discharge: Rd Bui Consulting providers: Kelly Espinoza ; Rd Bui ; Giovanni Rao ; Ayan Scherer Discharging Clinician: Rd Bui Anticipated Discharge Date/Time: 11/09/20 12:00 Patient Disposition: Home, Self-Care Activity: pelvic rest Diet: diabetic Discharge Instructions: Follow-Up: Call your Provider's office for an appointment to be seen in: 1 Week EPISIOTOMY/PERINEAL CARE: * Until bleeding stops, use your olla bottle after urinating * Change your pad frequently throughout the day * You may take sitz baths several times a day (fill your bathtub with warm water and soak for 20 minutes.) Do NOT bathe in the water * No tub baths until seen by your physician - You may shower BLEEDING: * Each individual will experience vaginal bleeding, but it will vary with each situation and individual woman. * Vaginal bleeding will go thru cycles-from bright red, to pinkish to a white, creamy discharge. This is considered normal. You may also experience a brownish discharge which is also normal. DIET AND NUTRITION: * Eat at least 3 regular, well-balanced meals per day: include all 4 food groups daily. * You may prefer 6 small meals. * Drink 6-8 glasses of water or non-caffeinated beverages per day. * Loss of appetite is common with loss. We encourage you to try to eat; this will help with both your physical and emotional health. ACTIVITY: * Rest as much as possible during the day. * Do not exercise or lift anything heavier than 10 pounds (such as laundry or other children.) * Avoid stairs or driving as much as possible, especially if you are taking pain medication. * Do not put anything into the vagina. No douching, tampons, or sexual activity until seen and released by your physician. * Listen to your body, and do not do what is uncomfortable or painful. EMOTIONAL HEALTH: * This is a very difficult and sad time for you and your family, friends, and other children. It may be helpful to refer to the booklets on loss that you received. * It is okay to be sad and to cry. Denial, anger, and guilt are also normal stages that you and your family may go thru during this time. Each person reaches these stages at their own pace. * Keep the lines of communication open between family and friends, and ask for help if needed. NOTIFY PHYSICIAN IF YOU HAVE ANY QUESTIONS OR IF ANY OF THE FOLLOWING SYMPTOMS OCCUR: * If your perineum becomes red, swollen, or more painful than what you have experienced in the hospital. * If your vaginal bleeding becomes foul smelling. * If your vaginal bleeding becomes more heavy than a period or if your bleeding changes from pink to bright red. However, you may pas
== END 2020-11-09 11:12 | disposition home or self-care (01) | DRG 770 ==
PROVIDERS: Obstetrics & Gynecology; Admitting Provider Obstetrics & Gynecology; Visit Provider Obstetrics & Gynecology
PROC: 10D17ZZ Extraction of Products of Conception, Retained, Via Natural or Artificial Opening (ICD-10-PCS; principal; 2020-11-07 19:45)
DX: O02.1 Missed abortion (principal); O24.12 Pre-existing type 2 diabetes mellitus, in childbirth; O08.1 Delayed or excessive hemorrhage following ectopic and molar pregnancy; Z3A.15 15 weeks gestation of pregnancy; O99.214 Obesity complicating childbirth; E66.9 Obesity, unspecified; E11.9 Type 2 diabetes mellitus without complications
CPT/HCPCS: 36415; 74176; 80053; 80307; 82947; 82948; 83036; 84439; 84443; 85014; 85018; 85025; 85460; 85613; 85730; 86146; 86147; 86592; 86644; 86645; 86703; 86747; 86777; 86850; 86900; 86901; 88300; 88305; 88307; A9270; G0378; G0379; G0432; J1956; J2210; J2405; J2704; J2765; J2795; J3010; J7120; J7121

== ENCOUNTER 2020-11-13 16:08 | Emergency (ER) | payer OTHER, MEDICAID, SELFPAY ==
--- NOTE | ~2020-11-13 | US_ITS ---
EXAMINATION: US abdomen limited DATE: 11/13/2020 18:27 INDICATION: Epigastric abdominal pain. Nausea and vomiting. TECHNIQUE: Multiple grayscale and Doppler ultrasound images of the abdomen were obtained. COMPARISON: CT abdomen and pelvis 11/08/2020 FINDINGS: The visualized portions of the head and body of the pancreas are normal. The liver is barber l without focal lesion. There is normal flow in main portal vein. The gallbladder is contracted and c ontains sludge. No gallstones. There was no sonographic Jackson sign. The common duct is normal and me asures 4 mm. IMPRESSION: 1. Gallbladder sludge. No specific evidence of acute cholecystitis. Reviewed, dictated and finalized at location A.
[2020-11-13 16:30] VITALS: BP 137/89; PULSE 89; RESP 18; TEMP 36.1; O2SAT 100
--- NOTE | 2020-11-13 16:33 | PC.NURSE ---
patient reports that Dr. Bui's office wanted to have her be a direct admission yesterday but she wanted to attempt meds at home.
[2020-11-13] MEDS: LACTATED RINGERS 1,000 ML 999 ML IV CONT (17:08)
[2020-11-13 17:15] LABS: Basophils Percent Auto 0.3 % (0.2-1.2); Eosinophils Percent Auto 0.3 % (0-4.4); Hematocrit 36.5 % (37.0-47.0); Immature Granulocyte Absolute 0.03 K/mm3 (0.00-0.031); Immature Granulocyte Percent A 0.3 % (0-0.5); Lymphocytes Absolute Auto 2.47 K/mm3 (0.9-3.2); Lymphocytes Percent Auto 27.2 % (18.3-44.2); Mean Corpuscular HGB Conc 32.9 g/dl (32-36); Mean Corpuscular Hemoglobin 26.8 pg (26-34); Mean Corpuscular Volume 81.7 fl (80-100); Mean Platelet Volume 10.1 fl (7.4-10.4); Monocytes Absolute Auto 0.5 K/mm3 (0.1-0.6); Monocytes Percent Auto 5.6 % (2.6-8.5); Neutrophils Percent Auto 66.3 % (45.5-73.1); Platelet Count Result 433 k/mm3 (150-375); Red Blood Count 4.47 M/mm3 (4.2-5.4); Red Cell Distribution Width 13.8 % (11.5-14.5); White Blood Count 9.1 K/mm3 (4.5-10.0)
[2020-11-13 17:23] LABS: Alanine Aminotransferase 19 U/L (4-35); Albumin Level 4.8 g/dL (3.5-5.1); Alkaline Phosphatase 72 U/L (38-126); Anion Gap 15 mmol/L (8-16); Aspartate Amino Transferase 25 U/L (14-36); Bilirubin,Total 0.8 mg/dL (0.2-1.3); Calcium 10.5 mg/dL (8.4-10.2); Carbon Dioxide 24 mmol/L (22-30); Chloride 100 mmol/L (98-107); Estimated CRCL calculation 178 ml/min; Estimated Glomerular Filt Rate > 60; Glucose 156 mg/dL (65-110); Lipase 57 U/L (23-300); Potassium 3.2 mmol/L (3.4-5.0); Sodium 139 mmol/L (137-145)
[2020-11-13 17:50] LABS: Add Urine Microscopic? YES; Appearance Urine Clear (Clear); Bilirubin Urine Negative (Negative); Blood Urine 3+ (Negative); Color Urine Yellow (Yellow); Glucose Urine UA Negative (Negative); Ketones Urine 2+ mg/dL (Negative); Leukocyte Esterase Ur 2+ LEU/UL (Negative); Mucus Urine Rare /lpf; Nitrate Urine Negative (Negative); Protein Urine 1+ mg/dL (Negative); RBC Urine >75 /hpf (0-2); Squamous Epithelial Cell Urine Occasional /hpf (Few); Urobilinogen Urine Negative mg/dL (<2.0); WBC Urine 31-50 /hpf
[2020-11-13 17:54] LABS: Blood Urea Nitrogen < 2 mg/dL (7-17)
[2020-11-13] MEDS: HALOPERIDOL LACTATE 5 MG/ML VIAL IV PUSH (18:08)
--- NOTE | 2020-11-13 18:09 | ED.NAVMDI ---
HPI - Nausea/Vomiting/Diarrhea General Chief complaint: Nausea/Vomiting/Diarrhea Stated complaint: Nausea/vomiting Time Seen by Provider: 11/13/20 16:37 Source: patient and family Mode of arrival: ambulatory Limitations: no limitations History of Present Illness HPI Narrative: 30-year-old female Here for recurrent intractable nausea and vomiting She is a G5, P3 with a recent miscarriage at 13+ weeks and is postop day 6 from a D&C She does not report hyperemesis with her previous pregnancies but developed this vomiting starting at about 10 weeks this time It was attributed to hyperemesis of , she had some work-up after the loss of the including an unremarkable CT scan done 3 or 4 days ago here, but the nausea vomiting continue She has no diarrhea, not much abdominal pain, no urinary complaints Related Data Home Medications Medication Instructions Recorded Confirmed famotidine 20 mg PO BID 11/07/20 11/07/20 omeprazole 40 mg PO DAILY 11/07/20 11/07/20 ondansetron 8 mg PO Q8H PRN 11/07/20 11/07/20 Allergies Allergy/AdvReac Type Severity Reaction Status Date / Time No Known Allergies Allergy Unknown Verified 11/07/20 11:34 Review of Systems Review of Systems: All systems reviewed & are unremarkable except as noted in HPI and below Constitutional: Constitutional: Reports no additional constitutional complaints, Denies chills, Reports fatigue, Denies fever(s), Denies headache(s) and Reports weakness Eyes: Eyes: Reports no additional eye complaints and Denies change in vision ENT: Denies headache(s) and Denies sore throat Cardiovascular: Cardiovascular: Denies chest pain and Denies dyspnea Respiratory: Respiratory: Denies cough and Denies dyspnea Gastrointestinal: Gastrointestinal: Denies abdominal pain, Denies diarrhea, Reports nausea and Reports vomiting Genitourinary: Genitourinary: Denies hematuria, Denies urinary frequency and Denies dysuria Musculoskeletal: Musculoskeletal: Denies deformity, Denies arthralgias, Denies joint swelling and Denies numbness Integumentary/Breasts: Skin/Breast: Denies rash and Denies wounds Neurologic: Denies headache(s), Denies focal weakness and Denies numbness Psychiatric: Psychiatric: Reports no additional psychiatric complaints Endocrine: Endocrine: Reports no additional endocrine complaints Hematologic/Lymphatic: Hematologic/Lymphatic: Reports no additional hematologic/lymphatic complaints Allergic/Immunologic: Allergic/Immunologic: Reports no additional allergic/immunologic complaints [facility] Past Medical History Medical History Type 2 diabetes mellitus Surgical History Surgical History Delivery by section Family History Family History Mother Diabetes mellitus Father Diabetes mellitus Sibling Diabetes mellitus Social History Social History Smoking status: Never smoker Second hand tobacco smoke exposure: No Substance use: never Spiritual care concerns: No Exam Const: General: cooperative, no acute distress and alert Nutritional Appearance: obese Orientation/consciousness: patient oriented x3 (alert) HENMT: Head: normal to inspection, normocephalic and atraumatic Ears: external ears normal General nose exam: no epistaxis Eyes: Conjunctivae: conjunctivae normal EOM: EOMs intact bilaterally Neck: Neck: normal visual inspection, supple and no JVD Resp: Effort & Inspection: normal respiratory effort and not labored Auscultation: clear to auscultation bilaterally and other (BS =) GI: GI Palp: Yes Soft to palpation, Yes Tenderness to palpation present (GI) (Very mild epigastric tenderness), No Guarding due to palpation present (GI) and No Rebound tenderness present : General: Yes
[2020-11-13 18:14] LABS: Amphetamine Screen Urine Negative (Negative); Barbiturate Screen Urine Negative (Negative); Benzodiazepines Screen Urine Negative (Negative); Cannabinoid Screen Urine Negative (Negative); Cocaine Screen Urine Negative (Negative); Methadone Screen Urine Negative (Negative); Opiate Screen Urine Negative (Negative); Phencyclidine Screen Urine Negative (Negative)
[2020-11-13 21:14] VITALS: BP 126/85; PULSE 101; RESP 16; O2SAT 98
== END 2020-11-13 21:15 | disposition home or self-care (01) ==
PROVIDERS: Emergency Medicine; Emergency Provider Emergency Medicine; PCP Registered Nurse
DX: R11.2 Nausea with vomiting, unspecified (principal); E11.9 Type 2 diabetes mellitus without complications; R82.998 Other abnormal findings in urine
CPT/HCPCS: 36415; 76705; 80053; 80307; 81001; 81025; 83690; 84702; 85025; 87086; 96361; 96374; 99284; J1630; J7120

== ENCOUNTER 2020-11-21 17:56 | Inpatient (IN) | payer OTHER, MEDICAID, SELFPAY ==
--- NOTE | ~2020-11-21 | XR_ITS ---
EXAMINATION: XR abdomen/kub 1V DATE: 11/21/2020 19:19 INDICATION: Constipation, nausea and vomiting TECHNIQUE: A supine view of the abdomen on 2 radiographs was obtained. COMPARISON: None. FINDINGS: Relative paucity of bowel gas with small amount of gas and would appears to be the ascending and sigm oid colon. There appears to be only a small to moderate amount of stool in the transverse and descend ing colon. Lung bases are clear. Heart size is normal. Mild thoracolumbar lumbar dextrocurvature. IMPRESSION: 1. Relative paucity of bowel gas with likely small to moderate amount of stool in the mid colon. Reviewed, dictated and finalized at location A.
--- NOTE | 2020-11-21 18:11 | ADMGEN ---
This patient, Kelly Martin, was admitted to Medical Room 253-01. Patient/family oriented to hospital policies and general routines including ID bracelet, bed and alarms, visiting hours, pain management, procedures, bathroom and other care routines, personal items, smoking policy, room service/diet, and visiting hours. Information on how to activate the Rapid Response Team has been discussed. Patient/Family are encouraged to report perceived risks to care and to ask questions if they do not understand what they are told or what they should do.
[2020-11-21 18:17] VITALS: BMI 33.9
[2020-11-21] MEDS: ONDANSETRON INJ 4 MG/2 ML VIAL 8 MG IV PUSH (18:39)
[2020-11-21] MEDS: LACTATED RINGERS 1,000 ML 150 ML IV CONT (18:42)
[2020-11-21] MEDS: LACTATED RINGERS 500 ML 999 ML IV CONT (18:51)
[2020-11-21 19:33] LABS: Alanine Aminotransferase 18 U/L (4-35); Albumin Level 4.2 g/dL (3.5-5.1); Alkaline Phosphatase 57 U/L (38-126); Anion Gap 11 mmol/L (8-16); Aspartate Amino Transferase 18 U/L (14-36); Bilirubin,Total 0.5 mg/dL (0.2-1.3); Calcium 9.7 mg/dL (8.4-10.2); Carbon Dioxide 22 mmol/L (22-30); Chloride 99 mmol/L (98-107); Estimated CRCL calculation 178 ml/min; Estimated Glomerular Filt Rate > 60; Glucose 158 mg/dL (65-110); Sodium 132 mmol/L (137-145)
[2020-11-21 19:37] LABS: Basophils Percent Auto 0.2 % (0.2-1.2); Eosinophils Absolute Auto 0.1 K/mm3 (0-0.3); Eosinophils Percent Auto 0.6 % (0-4.4); Hematocrit 35.5 % (37.0-47.0); Hemoglobin 11.2 g/dL (12.0-15.0); Immature Granulocyte Absolute 0.05 K/mm3 (0.00-0.031); Immature Granulocyte Percent A 0.6 % (0-0.5); Lymphocytes Percent Auto 26.4 % (18.3-44.2); Mean Corpuscular HGB Conc 31.5 g/dl (32-36); Mean Corpuscular Hemoglobin 26.2 pg (26-34); Mean Corpuscular Volume 83.1 fl (80-100); Mean Platelet Volume 10.8 fl (7.4-10.4); Monocytes Absolute Auto 0.5 K/mm3 (0.1-0.6); Neutrophils Absolute Auto 5.5 K/mm3 (1.3-6.7); Neutrophils Percent Auto 66.2 % (45.5-73.1); Platelet Count Result 342 k/mm3 (150-375); Red Blood Count 4.27 M/mm3 (4.2-5.4); Red Cell Distribution Width 13.9 % (11.5-14.5); White Blood Count 8.3 K/mm3 (4.5-10.0)
[2020-11-21 19:47] LABS: Beta HCG Quantitative 573.48 mIU/ML
[2020-11-21] MEDS: METOCLOPRAMIDE HCL INJ 10 MG/2 ML VIAL IV PUSH (20:30)
[2020-11-21 20:38] LABS: Blood Urea Nitrogen < 2 mg/dL (7-17)
[2020-11-21 21:09] VITALS: BP 124/69; PULSE 94; RESP 18; TEMP 36.9; O2SAT 99
[2020-11-21] MEDS: MAGNESIUM CITRATE 300 ML BTL 150 ML PO (22:53)
[2020-11-22] MEDS: LACTATED RINGERS 1,000 ML 150 ML IV CONT ×4 (02:01→22:33)
[2020-11-22 08:00] VITALS: BP 130/78; PULSE 87; RESP 20; TEMP 36.4; O2SAT 100
[2020-11-22] MEDS: MAGNESIUM HYDROXIDE SUSP 30 ML UDC PO ×2 (08:04→15:44)
[2020-11-22] MEDS: ONDANSETRON INJ 4 MG/2 ML VIAL 8 MG IV PUSH ×2 (08:04→18:26)
[2020-11-22 08:14] LABS: Glucose Point of Care 119 mg/dl (65-105)
--- NOTE | 2020-11-22 09:18 | PM.IMHP ---
H&P: HPI History of Present Illness Date/Time: 11/22/20 09:18 This patient is a 30-year-old multiparous female who recently passed a 14 week gestation. At that time she was having nausea and vomiting. She refused stand hospital at that time and was discharged. The nausea and vomiting was never adequately addressed. She continued to her next office visit where she again requested that she be allowed a couple of more days before being admitted. Now she presented yesterday for follow-up on the nausea vomiting and her miscarriage. She Continued to have nausea vomiting and was willing to be admitted. she continues to have a positive HCG. she reported constipation. She had not had a bowel movement almost a month. She was intermittently tolerating p.o. Food and liquids. She denies any fevers or chills. She denies any chest pain or shortness of breath. She denies any excessive vaginal bleeding. She denies any uterine cramping. Chief Complaint: Nausea vomiting Review of Systems Constitutional: Constitutional: Reports no additional constitutional complaints, Denies fatigue, Denies headache(s), Denies lethargy and Denies weakness Eyes: Eyes: Reports no additional eye complaints, Denies blurry vision and Denies photophobia ENT: Reports as per HPI, Denies headache(s) and Denies neck pain Cardiovascular: Cardiovascular: Denies chest pain, Denies diaphoresis, Denies leg edema, Denies palpitations and Denies dyspnea Respiratory: Respiratory: Denies hemoptysis, Denies dyspnea and Denies wheezing Gastrointestinal: Gastrointestinal: Denies abdominal pain, Denies melena, Denies bloating, Denies hematochezia, Denies nausea and Denies vomiting Genitourinary: Genitourinary: Reports no additional female genitourinary complaints Musculoskeletal: Musculoskeletal: Denies joint swelling, Denies neck pain, Denies numbness and Denies stiffness Neurologic: Denies Abnormal speech present, Denies confusion, Denies headache(s), Denies numbness and Denies weakness Psychiatric: Psychiatric: Denies anxiety, Denies confusion, Denies depression, Denies homicidal ideation and Denies suicidal ideation Endocrine: Endocrine: Denies fatigue and Denies palpitations Allergic/Immunologic: Allergic/Immunologic: Denies wheezing PMFSH Past Medical History Medical History Type 2 diabetes mellitus Surgical History Surgical History Delivery by section Family History Family History Mother Diabetes mellitus Father Diabetes mellitus Sibling Diabetes mellitus Social History Social History Smoking status: Never smoker Second hand tobacco smoke exposure: No Alcohol intake: never Substance use: never Spiritual care concerns: No Meds Home Medications and Allergies Home Medications Medication Instructions Recorded Confirmed Type famotidine 20 mg PO BID 11/07/20 11/21/20 History omeprazole 40 mg PO DAILY 11/07/20 11/21/20 History ondansetron 8 mg PO Q8H PRN 11/07/20 11/21/20 History acetaminophen [Mapap 650 mg PO Q6H PRN tablet 11/08/20 11/21/20 Rx (acetaminophen)] insulin detemir U-100 [Levemir 15 unit SUBCUT HS #1 ml 11/08/20 11/21/20 Rx FlexTouch U-100 Insuln] metoclopramide HCl 5 mg PO TID PRN #0 tablet 11/08/20 11/21/20 Rx metformin 500 mg PO DAILY 11/21/20 11/21/20 History Allergies Allergy/AdvReac Type Severity Reaction Status Date / Time No Known Allergies Allergy Unknown Verified 11/07/20 11:34 Vital Signs Vital Signs - 24 hr 11/21/20 21:09 Temperature 98.5 F Pulse Rate 94 Respiratory Rate 18 Blood Pressure 124/69 Pulse Oximetry 99 Exam Const: General: healthy appearing, comfortable and no acute distress; No confusion Orientation/consciousness: No confusion Ey
[2020-11-22 11:25] VITALS: BMI 33.9
[2020-11-22 12:38] LABS: Glucose Point of Care 117 mg/dl (65-105)
[2020-11-22 15:26] VITALS: BP 134/81; PULSE 98; RESP 16; TEMP 36.2; O2SAT 100
[2020-11-22 16:43] LABS: Glucose Point of Care 121 mg/dl (65-105)
--- NOTE | 2020-11-22 16:46 | WPDANESEPP ---
Anes - Eval Pre Procedure Procedure: Operation Date: 11/23/20 14:15 Proposed Procedures p Esophagogastroduodenoscopy - Kenneth Fuller MD Date/Time: 11/22/20 16:46 Pre Op Diagnosis: Nausea/Vomitting Patient Data Age: 30 Gender: F Height: 1.63 m Weight: 89.6 kg Last Vital Signs Temp 97.1 F L 11/22/20 15:26 Pulse 98 11/22/20 15:26 Resp 16 11/22/20 15:26 BP 134/81 11/22/20 15:26 Pulse Ox 100 11/22/20 15:26 Allergies Allergy/AdvReac Type Severity Reaction Status Date / Time No Known Allergies Allergy Unknown Verified 11/07/20 11:34 Home Medications Medication Instructions Recorded Confirmed Type famotidine 20 mg PO BID 11/07/20 11/21/20 History omeprazole 40 mg PO DAILY 11/07/20 11/21/20 History ondansetron 8 mg PO Q8H PRN 11/07/20 11/21/20 History acetaminophen [Mapap 650 mg PO Q6H PRN tablet 11/08/20 11/21/20 Rx (acetaminophen)] insulin detemir U-100 [Levemir 15 unit SUBCUT HS #1 ml 11/08/20 11/21/20 Rx FlexTouch U-100 Insuln] metoclopramide HCl 5 mg PO TID PRN #0 tablet 11/08/20 11/21/20 Rx metformin 500 mg PO DAILY 11/21/20 11/21/20 History Laboratory Tests 11/21/20 11/21/20 11/22/20 18:57 18:57 08:11 WBC 8.3 K/mm3 K/mm3 (4.5-10.0) RBC 4.27 M/mm3 M/mm3 (4.2-5.4) Hgb 11.2 g/dL L g/dL (12.0-15.0) Hct 35.5 % L % (37.0-47.0) MCV 83.1 fl fl (80-100) MCH 26.2 pg pg (26-34) MCHC 31.5 g/dl L g/dl (32-36) RDW 13.9 % % (11.5-14.5) Plt Count 342 k/mm3 k/mm3 (150-375) MPV 10.8 fl H fl (7.4-10.4) Immature Gran % (Auto) 0.6 % H % (0-0.5) Neut % (Auto) 66.2 % % (45.5-73.1) Lymph % (Auto) 26.4 % % (18.3-44.2) [place] % (Auto) 6.0 % % (2.6-8.5) Eos % (Auto) 0.6 % % (0-4.4) Baso % (Auto) 0.2 % % (0.2-1.2) Lymph # (Auto) 2.20 K/mm3 K/mm3 (0.9-3.2) [place] # (Auto) 0.5 K/mm3 K/mm3 (0.1-0.6) Eos # (Auto) 0.1 K/mm3 K/mm3 (0-0.3) Baso # (Auto) 0.0 K/mm3 K/mm3 (0.0-0.1) Abs Immat Gran (auto) 0.05 K/mm3 H K/mm3 (0.00-0.031) Absolute Neuts (auto) 5.5 K/mm3 K/mm3 (1.3-6.7) Absolute Nucleated RBC 0.0 K/mm3 K/mm3 (0.0-0.012) Nucleated RBC % 0.0 % % (0.0-0.2) Sodium 132 mmol/L L mmol/L (137-145) Potassium 4.0 mmol/L mmol/L (3.4-5.0) Chloride 99 mmol/L mmol/L (98-107) Carbon Dioxide 22 mmol/L mmol/L (22-30) Anion Gap 11 mmol/L mmol/L (8-16) BUN < 2 mg/dL L mg/dL (7-17) Creatinine 0.40 mg/dL L mg/dL (0.7-1.0) Estim Creat Clear Calc 178 ml/min ml/min Estimated GFR > 60 (59 - ) Glucose 158 mg/dL H mg/dL (65-110) POC Capillary Glucose 119 mg/dl H mg/dl (65-105) Calcium 9.7 mg/dL mg/dL (8.4-10.2) Total Bilirubin 0.5 mg/dL mg/dL (0.2-1.3) AST 18 U/L U/L (14-36) ALT 18 U/L U/L (4-35) Alkaline Phosphatase 57 U/L U/L (38-126) Total Protein 7.0 g/dL g/dL (6.3-8.2) Albumin 4.2 g/dL g/dL (3.5-5.1) Beta HCG, Quant 573.48 mIU/ML mIU/ML 11/22/20 11/22/20 12:28 16:40 WBC RBC Hgb Hct MCV MCH MCHC RDW Plt Count MPV Immature Gran % (Auto) Neut % (Auto) Lymph % (Auto) [place] % (Auto) Eos % (Auto) Baso % (Auto) Lymph # (Auto) [place] # (Auto) Eos # (Auto) Baso # (Auto) Abs Immat Gran (auto) Absolute Neuts (auto) Absolute Nucleated RBC Nucleated RBC % Sodium Potassium Chloride Carbon Dioxide Anion Gap BUN Creatinine Estim
--- NOTE | 2020-11-22 17:26 | WPDGICN ---
Assessment and Plan Assessment and plan (1) Nausea and vomiting: Code(s): R11.2 - Nausea with vomiting, unspecified Status: Acute Assessment and Plan: ongoing despite medical treatment. Will do EGD tomorrow with bx, assess if gastritis, ulcers, etc consider GES if work up negative. had recent abdominal ultrasound (2) Type 2 diabetes mellitus: Code(s): E11.9 - Type 2 diabetes mellitus without complications Status: Acute Assessment and Plan: on medical treatment (3) Missed : Code(s): O02.1 - Missed Status: Acute GI Consult Note Consult date/time: 11/22/20 17:26 Reason for consult: intractable nausea and vomiting HPI: Kelly Martin is a 30 year old female who started with nausea and vomiting about 1 month ago while she was , h/o DM and . She is G5, P3 with a recent miscarriage at 13+ weeks and had D&C about 2 weeks ago. She came to ER 11/13/20 and had abdominal us that was reviewed, gallbladder sludge, no specific evidence of acute cholecystitis and sent home. She is still having nausea and some days vomiting. Also history of chronic constipation. Recently started on ppi but still symptomatic, has not had EGD. No etoh or smoking. Review of Systems Constitutional: Constitutional: Denies chills Eyes: Eyes: Denies blurry vision ENT: Reports Normal hearing present Cardiovascular: Cardiovascular: Denies chest pain Respiratory: Respiratory: Denies dyspnea Gastrointestinal: Gastrointestinal: Reports constipation, Reports nausea and Reports vomiting Genitourinary: Genitourinary: Denies hematuria Musculoskeletal: Musculoskeletal: Denies neck pain Integumentary/Breasts: Skin/Breast: Denies dry skin Neurologic: Denies headache(s) Psychiatric: Psychiatric: Reports no additional psychiatric complaints [facility] Past Medical History Medical History (Updated 11/22/20 @ 16:50 by Cuco Batista CRNA) Missed at 14 weeks gestation. Approx two weeks ago Nausea and vomiting hemorrhage Type 2 diabetes mellitus Surgical History Surgical History Delivery by section Family History Family History Mother Diabetes mellitus Father Diabetes mellitus Sibling Diabetes mellitus Social History Social History Smoking status: Never smoker Second hand tobacco smoke exposure: No Alcohol intake: never Substance use: never Spiritual care concerns: No Meds Home Medications and Allergies Home Medications Medication Instructions Recorded Confirmed Type famotidine 20 mg PO BID 11/07/20 11/21/20 History omeprazole 40 mg PO DAILY 11/07/20 11/21/20 History ondansetron 8 mg PO Q8H PRN 11/07/20 11/21/20 History acetaminophen [Mapap 650 mg PO Q6H PRN tablet 11/08/20 11/21/20 Rx (acetaminophen)] insulin detemir U-100 [Levemir 15 unit SUBCUT HS #1 ml 11/08/20 11/21/20 Rx FlexTouch U-100 Insuln] metoclopramide HCl 5 mg PO TID PRN #0 tablet 11/08/20 11/21/20 Rx metformin 500 mg PO DAILY 11/21/20 11/21/20 History Allergies Allergy/AdvReac Type Severity Reaction Status Date / Time No Known Allergies Allergy Unknown Verified 11/07/20 11:34 Vital Signs Vital Signs - 24 hr 11/21/20 21:09 11/22/20 08:00 11/22/20 15:26 Temperature 98.5 F 97.5 F L 97.1 F L Pulse Rate 94 87 98 Respiratory Rate 18 20 16 Blood Pressure 124/69 130/78 134/81 Pulse Oximetry 99 100 100 Exam Const: General: comfortable and no acute distress HENMT: General nose exam: Normal nares present Eyes: General: appearance normal, both eyes and all related structures Neck: Neck: no JVD Resp: Auscultation: clear to auscultation bilaterally Cardio: Rate: regular rate Rhythm: regular rhythm GI: Inspection: non-distended GI Palp: Yes Soft to palp
--- NOTE | 2020-11-22 17:36 | PM.IMCN ---
Assessment and Plan Assessment and plan (1) Nausea and vomiting: Code(s): R11.2 - Nausea with vomiting, unspecified Status: Acute (2) Type 2 diabetes mellitus: Code(s): E11.9 - Type 2 diabetes mellitus without complications Status: Acute (3) Missed : Code(s): O02.1 - Missed Status: Acute Additional Plan Patient with persistent nausea and vomiting. Consider gastroparesis but no early satiety symptoms prior to her . She also does not have any the of the chronic medical conditions related to diabetes. Gallbladder ultrasound showing gallbladder sludge but no evidence of acute cholecystitis. GI has been consulted with plans for EGD the morning. Normal CT scan of the abdomen and pelvis on 11/08/2020. Will start sliding scale protocol. Hypoglycemia protocol will be available as needed. Will add Protonix. Hold her oral and subcu diabetic medications at this time until she is eating better. Thank you so much for allowing me prior his patient's care. Will continue to follow along with you. HPI Data of Consult Consult date: 11/23/20 Requesting Physician: Rd Bui MD Primary Care Provider: Renetta Owen, [employer] Consult Narrative Reason for consult: Diabetes Narrative: Kelly Martin is a 30 year old female with DM and recent D&C for miscarriage here for persistent nausea and vomiting. She was 14weeks GA when she was found to have demise. She passed part of the products of conception but not all and ultimately underwent suction D&C on 11/07/20. SHe toelrated the procedure well but had post-procedure nausea and vomiting. This improved and she was tolerating clears and was able to be discharged home 11/09. Tomeka returned to the ED for persitent n/v on 11/13. WBC was normal. bHCG 821. UDS negative and UA showed blood, WBC and ketones but with negative urine culture. RUQ US showed GB sludge. It was recommended that she take the reglan that was already prescribed. She was dischsrged home. She has also been seen in the clinic for similar issues. Yesterday, KUB showing relative paucity of bowel gas with likely small to moderate amount of stool in the mid colon. bHCG also yesterday was 573. She final agrees to be readmitted and was admitted on 11/22. She states she has had nausea vomiting since October 17. She has a few days a reprieve from the symptoms. She has only been taking in light foods such as soups. She has had weight loss but cannot quantify this. No early satiety. No melena or hematochezia. She has been having constipation but now is having bowel movements. No hematemesis. No history of severe nausea/vomiting during her other pregnancies. She denies any abdominal pain. No fever chills. She does feel cold at times. She does have some pill dysphagia mostly with the Reglan and metformin. No dysuria hematuria. She still having vaginal since the procedure. She has DM Type II diagnosed 8 years ago. A1c was 10.0 at the beginning of her but decreased to 7.2. She had a A1c 6.2 on 11/07. She was on metformin and Levemir 15U QHS was added by her PCP before she was . When she became , she saw a high-risk OB and levemir titrated to 78U qhs and a 'fast acting' insulin (Lantus 47U QAM listed in the chart). She was having lows so the fast acting was stopped. Since the miscarriage, she has been back to metformin and levelmir 15U qhs SHe was checking her glucose 6x/day but decreased this to 3-4x/day now. Glucose running 120-130 now. She has no renal abnormalites. No peripheral neuropathy symptoms. Can't remember her last eye exam. Review of Systems Review of Systems: All systems reviewed & are unremarkable except as noted in HPI and below [facility] [place] Past Medical History Medical History Missed at 14 weeks gestation. Approx two weeks ago Nausea and vomiting hemorrhage Type 2 diabet
[2020-11-22] MEDS: PANTOPRAZOLE SODIUM IV 40 MG VIAL IV PUSH (21:06)
[2020-11-22 21:16] LABS: Glucose Point of Care 114 mg/dl (65-105)
[2020-11-22 21:42] VITALS: BP 140/81; PULSE 84; RESP 16; TEMP 36.1; O2SAT 100
[2020-11-23] VITALS (8 sets, daily range): BP systolic 133–149; BP diastolic 53–98; PULSE 77–89; RESP 16–24; TEMP 36.1–36.7; O2SAT 92–100
[2020-11-23] MEDS: LACTATED RINGERS 1,000 ML 150 ML IV CONT ×4 (05:07→16:33)
[2020-11-23] MEDS: ONDANSETRON INJ 4 MG/2 ML VIAL 8 MG IV PUSH ×2 (05:07→14:15)
[2020-11-23] MEDS: PANTOPRAZOLE SODIUM IV 40 MG VIAL IV PUSH ×2 (09:08→20:04)
[2020-11-23 09:41] LABS: Glucose Point of Care 136 mg/dl (65-105)
[2020-11-23] MEDS: METOCLOPRAMIDE HCL INJ 10 MG/2 ML VIAL IV PUSH ×2 (09:57→17:33)
--- NOTE | 2020-11-23 10:23 | WPDANESEPPF ---
Anes - Initial Pre Proc Eval Procedure: Operation Date: 11/23/20 14:15 Proposed Procedures p Esophagogastroduodenoscopy - Kenneth Fuller MD Date/Time: 11/23/20 10:23 Surgeon: Rd Bui MD Pre Op Diagnosis: Nausea/Vomitting Patient Data Age: 30 Gender: F Height: 1.63 m Weight: 89.6 kg Last Vital Signs Temp 36.3 C L 11/23/20 10:19 Pulse 79 11/23/20 10:19 Resp 16 11/23/20 10:19 BP 138/90 11/23/20 10:19 Pulse Ox 100 11/23/20 10:19 Allergies Allergy/AdvReac Type Severity Reaction Status Date / Time No Known Allergies Allergy Unknown Verified 11/23/20 10:08 Home Medications Medication Instructions Recorded Confirmed Type famotidine 20 mg PO BID 11/07/20 11/21/20 History omeprazole 40 mg PO DAILY 11/07/20 11/21/20 History ondansetron 8 mg PO Q8H PRN 11/07/20 11/21/20 History acetaminophen [Mapap 650 mg PO Q6H PRN tablet 11/08/20 11/21/20 Rx (acetaminophen)] insulin detemir U-100 [Levemir 15 unit SUBCUT HS #1 ml 11/08/20 11/21/20 Rx FlexTouch U-100 Insuln] metoclopramide HCl 5 mg PO TID PRN #0 tablet 11/08/20 11/21/20 Rx metformin 500 mg PO DAILY 11/21/20 11/21/20 History Laboratory Tests 11/22/20 11/22/20 11/22/20 12:28 16:40 21:05 POC Capillary Glucose 117 mg/dl H mg/dl 121 mg/dl H mg/dl 114 mg/dl H mg/dl (65-105) (65-105) (65-105) 11/23/20 09:06 POC Capillary Glucose 136 mg/dl H mg/dl (65-105) Patient hx anesthesia problems: none Family hx anesthesia problems: none PMFSH Past Medical History Medical History Missed at 14 weeks gestation. Approx two weeks ago Nausea and vomiting hemorrhage Type 2 diabetes mellitus Surgical History Surgical History Delivery by section Family History Family History Mother Diabetes mellitus Father Diabetes mellitus Sibling Diabetes mellitus Social History Social History Social History: She lives at home with her and 4 children (3 biologic and her niece that she is guardian). Lifelong nonsmoker. Rare alcohol use. No drug use. She is a full code. She nominated her to be the individual would make medical decisions for her if she is unable. Smoking status: Never smoker Second hand tobacco smoke exposure: No Alcohol intake: never Substance use: never Spiritual care concerns: No Anes - Eval Final PreProcedure Day of Procedure 11/23/20 10:23 Patient weight: obese Heart: regular rate and rhythm Lungs: clear to auscultation Airway: Mallampati scale class II Neurological: alert and oriented Last oral intake: >/= 8 hours ASA classification: III Emergent: no Anesthetic plan: proceed Anesthesia type and monitoring: general GIVS and standard monitoring Informed Consent: The patient's anesthetic plan and its attendant risks and benefits were discussed with the patient/family/POA. Questions were solicited and answers provided to the satisfaction of the patient/family/POA.
--- NOTE | 2020-11-23 10:29 | PM.IMPN ---
Progress Note: A&P Assessment and Plan (1) Nausea and vomiting: Code(s): R11.2 - Nausea with vomiting, unspecified Status: Acute Assessment and Plan: Patient with persistent nausea and vomiting that she states began in early October. Consider gastroparesis but no early satiety symptoms prior to her . -Gallbladder US showing GB sludge but no evidence of acute cholecystitis. -CT scan of the abdomen and pelvis normal on 11/08/2020. Protonix added. EGD planned for today. Consider acalculous cholecystitis or possible cyclic vomiting syndrome. May need HIDA scan or repeat CT of the abdomen/pelvis to exclude other intrabdominal process given her recent procedure. Follow up on EGD results. Decrease IV fluid rate. Labs in the morning EGD normal. NucMed Gastric emptying scan ordered. (2) Type 2 diabetes mellitus: Code(s): E11.9 - Type 2 diabetes mellitus without complications Status: Acute Assessment and Plan: The patient's blood glucose was reviewed on 11/23. Glucose remains well controlled. Continue AccuCheks covering with sliding scale. Hypoglycemia protocol available as needed. Home medications remain on hold. (3) Missed : Code(s): O02.1 - Missed Status: Acute Assessment and Plan: She was 14weeks GA when she was found to have demise. She passed part of the products of conception but not all and underwent suction D&C on 11/07/20. She tolerated the procedure well but had post-procedure nausea and vomiting. CT of the abdomen and pelvis was essentially normal. Her nausea improved and was able to be discharged home 11/09. Patient returned to the ED for persistent n/v on 11/13 and bHCG was 821. And repeat bHCG here was 573. Still having vaginal bleeding. Consider further imaging as mentioned above. Subjective Date/time seen: 11/23/20 10:29 Interval history: 30yo female with DM here for intractable nausea and vomiting. Was able to eat last night with chix breast, etc. She toerlated this well but still with nausea. Nausea persisted this morning with emesis x2 of bilious emesis this morning. She is still having BMs. No blood in the stool or the emesis. She is NPO for EGD this morning. Exam Narrative: AF 97.4 138/90 79 16 100% ra Gen - NARD Chest - CTA bilaterally, nml RR CV - RRR S1/S2 with persistent faint 2/6 systolic murmur RUSB Abd - soft, obese, mild diffuse tenderness Ext - no pedal edema Psych - normal mood but sad affect. Skin - warm and dry. Objective Data Vital Signs Vital Signs: Vital Signs - 24 hr 11/22/20 15:26 11/22/20 21:42 11/23/20 07:18 Temperature 97.1 F L 96.9 F L 96.9 F L Pulse Rate 98 84 77 Respiratory Rate 16 16 16 Blood Pressure 134/81 140/81 135/53 L Pulse Oximetry 100 100 92 11/23/20 10:19 Temperature 97.4 F L Pulse Rate 79 Respiratory Rate 16 Blood Pressure 138/90 Pulse Oximetry 100 Intake/Output Intake/Output: Intake & Output 11/20/20 11/21/20 11/22/20 11/23/20 23:59 23:59 23:59 23:59 Intake Total 500 4640 1000 Output Total 3700 900 Balance 500 940 100 Meds/Results Medications: Active Medications Generic Name Dose Route Start Last Admin Trade Name Freq PRN Reason Stop Dose Admin Dextrose 12.5 gm 11/22/20 18:30 Dextrose 50% 25 Gm/50 Ml Syringe IV PUSH PRN PRN Hypoglycemia Protocol Glucagon 1 mg 11/22/20 18:30 Glucagon For Inj 1 Mg Vial IM PRN PRN Hypoglycemia Protocol Glucose 15 gm 11/22/20 18:30 Glucose Oral Gel 15 Gm Of Glucse In 37.5 Gm Tube PO PRN PRN Hypoglycemia Protocol Lactated Ringer's 1,000 mls @ 100 mls/hr 11/21/20 18:35 11/23/20 09:10 Lr - Lactated Ringers Iv IV CONT 100 mls/hr .Q10H CANDIDA Infusion Dextrose 1,000 mls @ 100 mls/hr 11/22/20 18:30 Dextrose 5% 1,000 Ml IVPB PRN PRN Hypoglycemia Protocol Insulin Aspart 4 - 8 units 11/23/20 08:00 11/23/20 09:
[2020-11-23 11:29] LABS: Glucose Point of Care 128 mg/dl (65-105)
--- NOTE | 2020-11-23 12:00 | PCNFU ---
Nutrition Follow-Up Complete: Inadequate Oral Intake as related to N/V as evidenced by weight loss of 20 ibs. Goal: Adequate Intake of at least 75% of meals/supplements Limited progress towards goal. We will continue current goal. Pt current nutrition is NPO. Last recorded weight is 89.6 kg, no new weight to report. Bowel Motility:+BM reported 11/22 Labs Reviewed:No new labs to report. Meds Noted: LR, Reglan,Protonix,Zofran Additional Notes: Nutrition follow up. Patient currently NPO for EGD today. Oral Intake continues to be poor. Nausea continues to be reported. Recommend: [facility] diet with Glucerna shake BID when diet orders advances. Monitoring: RD will monitor every 3 days.
--- NOTE | 2020-11-23 16:11 | PM.GYNPNOP ---
RAW HIDE TRIMMER - A/P Assessment and plan (1) Missed : Code(s): O02.1 - Missed Status: Acute (2) Nausea and vomiting: Code(s): R11.2 - Nausea with vomiting, unspecified Status: Acute (3) Type 2 diabetes mellitus: Code(s): E11.9 - Type 2 diabetes mellitus without complications Status: Acute Assessment and Plan: This patient is a 30-year-old female with nausea and vomiting. It began during her early and continued since. In the interim she has had a miscarriage. Her symptoms did not improve after delivery of the fetus and removal of placenta. She did have some hemorrhage for which she had a D&C and removal of the placenta. Imaging after the D&C was normal. With the nausea and vomiting I was concerned about injury but none was visible at that time. She has not had any signs or symptoms of any intraoperative injury. Her beta-hCG is still elevated. This is not abnormal. Five hundred is relatively high for 2 weeks post delivery. This will sometimes be positive for several weeks after miscarriage, though that is uncommon. We wait some treatment recommendations and outpatient guidance from Gastroenterology. Her vomiting persists today. Postoperative Procedures: Procedures Operation Date: 11/23/20 14:15 Actual Procedure Side Surgeon p Esophagogastroduodenoscopy with small bowel biopsies and gastric biopsies Kenneth uFller MD Time Spent With Patient Time: Total time spent is greater than 50% in coordination of care (as documented) at patient's floor/unit and/or counseling patient: Time with patient: 15 - 25 minutes RAW HIDE TRIMMER- PN:Subj Post-Op Subjective Date/time seen: 11/23/20 16:11 patient had vomiting today. She had a couple of episodes. She denies any fevers or chills. She denies any chest pain or shortness of breath. She denies any vaginal bleeding. Interval history: 30yo female with DM here for intractable nausea and vomiting. Was able to eat last night with chix breast, etc. She toerlated this well but still with nausea. Nausea persisted this morning with emesis x2 of bilious emesis this morning. She is still having BMs. No blood in the stool or the emesis. She is NPO for EGD this morning. Exam Const: General: healthy appearing, comfortable and no acute distress Resp: Auscultation: clear to auscultation bilaterally, no rales, no rhonchi and no wheezes Cardio: Rate: regular rate Heart sounds: no click, no murmurs and no rubs GI: Inspection: non-distended Auscultation: normal bowel sounds Extrem: General: normal to inspection, no pedal edema and no calf tenderness RAW HIDE TRIMMER - PN: Obj Data Vital Signs Vital Signs: Vital Signs - 24 hr 11/22/20 21:42 11/23/20 07:18 11/23/20 10:19 Temperature 96.9 F L 96.9 F L 97.4 F L Pulse Rate 84 77 79 Respiratory Rate 16 16 16 Blood Pressure 140/81 135/53 L 138/90 Pulse Oximetry 100 92 100 11/23/20 10:56 11/23/20 11:06 11/23/20 11:16 Temperature Pulse Rate 81 79 84 Respiratory Rate 24 H 24 H 24 H Blood Pressure 140/81 145/84 H 149/98 H Pulse Oximetry 100 100 100 11/23/20 14:00 Temperature 98.1 F Pulse Rate 77 Respiratory Rate 18 Blood Pressure 149/85 H Pulse Oximetry 100 Intake/Output Intake/Output: Intake & Output 11/20/20 11/21/20 11/22/20 11/23/20 23:59 23:59 23:59 23:59 Intake Total 500 4640 2000 Output Total 3700 1775 Balance 500 940 225 Meds/Results Medications: Active Medications Generic Name Dose Route Start Last Admin Trade Name Freq PRN Reason Stop Dose Admin Dextrose 12.5 gm 11/22/20 18:30 Dextrose 50% 25 Gm/50 Ml Syringe IV PUSH PRN PRN Hypoglycemia Protocol Glucagon 1 mg 11/22/20 18:30 Glucagon For Inj 1 Mg Vial IM PRN PRN Hypoglycemia Protocol Glucose 15 gm 11/22/20 18:30 Glucose Oral Gel 15 Gm Of Glucse In 37.5 Gm Tube PO PRN PRN Hypoglycemia Protocol Lactated Rin
[2020-11-23] MEDS: LACTATED RINGERS 1,000 ML 100 ML IV CONT (16:15)
[2020-11-23 17:17] LABS: Glucose Point of Care 127 mg/dl (65-105)
[2020-11-23] MEDS: MAGNESIUM HYDROXIDE SUSP 30 ML UDC PO (17:32)
[2020-11-23 20:19] LABS: Glucose Point of Care 153 mg/dl (65-105)
[2020-11-24] VITALS: BP 117/73; PULSE 90; RESP 18; TEMP 36.2; O2SAT 98
[2020-11-24] MEDS: LACTATED RINGERS 1,000 ML 100 ML IV CONT ×2 (02:31→12:54)
[2020-11-24 04:24] VITALS: BP 126/79; PULSE 83; RESP 20; TEMP 36.3; O2SAT 99
[2020-11-24 05:47] LABS: Basophils Percent Auto 0.2 % (0.2-1.2); Eosinophils Absolute Auto 0.1 K/mm3 (0-0.3); Eosinophils Percent Auto 0.7 % (0-4.4); Hemoglobin 10.4 g/dL (12.0-15.0); Immature Granulocyte Absolute 0.02 K/mm3 (0.00-0.031); Immature Granulocyte Percent A 0.2 % (0-0.5); Lymphocytes Absolute Auto 3.18 K/mm3 (0.9-3.2); Lymphocytes Percent Auto 38.1 % (18.3-44.2); Mean Corpuscular HGB Conc 32.5 g/dl (32-36); Mean Corpuscular Hemoglobin 26.5 pg (26-34); Mean Corpuscular Volume 81.6 fl (80-100); Mean Platelet Volume 10.2 fl (7.4-10.4); Monocytes Absolute Auto 0.5 K/mm3 (0.1-0.6); Monocytes Percent Auto 5.8 % (2.6-8.5); Neutrophils Absolute Auto 4.6 K/mm3 (1.3-6.7); Platelet Count Result 290 k/mm3 (150-375); Red Blood Count 3.92 M/mm3 (4.2-5.4); Red Cell Distribution Width 13.6 % (11.5-14.5); White Blood Count 8.3 K/mm3 (4.5-10.0)
[2020-11-24 06:27] LABS: Alanine Aminotransferase 17 U/L (4-35); Albumin Level 3.6 g/dL (3.5-5.1); Alkaline Phosphatase 48 U/L (38-126); Anion Gap 9 mmol/L (8-16); Aspartate Amino Transferase 20 U/L (14-36); Bilirubin,Total 0.4 mg/dL (0.2-1.3); Calcium 8.8 mg/dL (8.4-10.2); Carbon Dioxide 24 mmol/L (22-30); Chloride 99 mmol/L (98-107); Estimated CRCL calculation 178 ml/min; Estimated Glomerular Filt Rate > 60; Glucose 114 mg/dL (65-110); Lipase 41 U/L (23-300); Potassium 3.5 mmol/L (3.4-5.0); Sodium 132 mmol/L (137-145)
[2020-11-24 07:01] LABS: Blood Urea Nitrogen < 2 mg/dL (7-17)
[2020-11-24 08:11] LABS: Glucose Point of Care 111 mg/dl (65-105)
[2020-11-24] MEDS: MAGNESIUM HYDROXIDE SUSP 30 ML UDC PO (09:19)
[2020-11-24] MEDS: PANTOPRAZOLE SODIUM IV 40 MG VIAL IV PUSH (09:19)
[2020-11-24] MEDS: ONDANSETRON INJ 4 MG/2 ML VIAL 8 MG IV PUSH (09:30)
--- NOTE | 2020-11-24 09:33 | PM.GYNPNOP ---
PHARMACOLOGY ASSOCIATE - A/P Assessment and plan (1) Nausea and vomiting: Code(s): R11.2 - Nausea with vomiting, unspecified Status: Acute Assessment and Plan: Appreciate mgt by hospitalist and GI. EGD nl GES Thursday do not think repeat CT scan needed from human factors advisor lead standpoint, as she does not have any sx of operative complication from D and C elevated hcg still- could be contributing to symptoms. repeat hcg thursday. discussed somatic sx of depression and anxiety, pt denies. (2) Type 2 diabetes mellitus: Code(s): E11.9 - Type 2 diabetes mellitus without complications Status: Acute Postoperative Procedures: Procedures Operation Date: 11/23/20 14:15 Actual Procedure Side Surgeon p Esophagogastroduodenoscopy with small bowel biopsies and gastric biopsies Kenneth Fuller MD Time Spent With Patient Time: Total time spent is greater than 50% in coordination of care (as documented) at patient's floor/unit and/or counseling patient: Time with patient: 15 - 25 minutes PHARMACOLOGY ASSOCIATE- PN:Subj Post-Op Subjective Date/time seen: 11/24/20 09:33 Interval history: 30yo female with DM here for intractable nausea and vomiting. yesterday was a bad day, but today feeling well. on full liquids, tolerating some. Per pt, GI wants her inpatient until GES Thursday. She denies depression or anxiety currently. Still sad after losing baby, but does not feel depressed and does not think that is what is causing her N/V. hcg still elevated, may be contributing. Exam Narrative: NAD, appropriate affect abdomen soft, ND, NT, normal BS ext NT, no edema PHARMACOLOGY ASSOCIATE - PN: Obj Data Vital Signs Vital Signs: Vital Signs - 24 hr 11/23/20 10:19 11/23/20 10:56 11/23/20 11:06 Temperature 97.4 F L Pulse Rate 79 81 79 Respiratory Rate 16 24 H 24 H Blood Pressure 138/90 140/81 145/84 H Pulse Oximetry 100 100 100 11/23/20 11:16 11/23/20 14:00 11/23/20 20:00 Temperature 98.1 F Pulse Rate 84 77 77 Respiratory Rate 24 H 18 18 Blood Pressure 149/98 H 149/85 H Pulse Oximetry 100 100 100 11/23/20 20:49 11/24/20 00:00 11/24/20 04:24 Temperature 97.4 F L 97.1 F L 97.3 F L Pulse Rate 89 90 83 Respiratory Rate 20 18 20 Blood Pressure 133/79 117/73 126/79 Pulse Oximetry 99 98 99 Intake/Output Intake/Output: Intake & Output 11/21/20 11/22/20 11/23/20 11/24/20 23:59 23:59 23:59 23:59 Intake Total 500 4640 3975 1390 Output Total 3700 3525 800 Balance 500 940 450 590 Meds/Results Medications: Active Medications Generic Name Dose Route Start Last Admin Trade Name Freq PRN Reason Stop Dose Admin Dextrose 12.5 gm 11/22/20 18:30 Dextrose 50% 25 Gm/50 Ml Syringe IV PUSH PRN PRN Hypoglycemia Protocol Glucagon 1 mg 11/22/20 18:30 Glucagon For Inj 1 Mg Vial IM PRN PRN Hypoglycemia Protocol Glucose 15 gm 11/22/20 18:30 Glucose Oral Gel 15 Gm Of Glucse In 37.5 Gm Tube PO PRN PRN Hypoglycemia Protocol Lactated Ringer's 1,000 mls @ 100 mls/hr 11/21/20 18:35 11/24/20 02:31 Lr - Lactated Ringers Iv IV CONT 100 mls/hr .Q10H CANDIDA Administration Dextrose 1,000 mls @ 100 mls/hr 11/22/20 18:30 Dextrose 5% 1,000 Ml IVPB PRN PRN Hypoglycemia Protocol Insulin Aspart 4 - 8 units 11/23/20 08:00 11/24/20 09:17 Insulin Aspart (*Bkc) 100 Units/Ml SUB-Q Not Given TIDWM CANDIDA Protocol Magnesium Hydroxide 30 ml 11/22/20 09:00 11/24/20 09:19 Magnesium Hydroxide Susp 30 Ml Udc PO 30 ml BID CANDIDA Administration Metoclopramide HCl 10 mg 11/21/20 18:03 11/23/20 17:33 Metoclopramide Hcl Inj 10 Mg/2 Ml Vial IV PUSH 10 mg Q6HR PRN Administration Nausea And Vomiting Ondansetron HCl 8 mg 11/21/20 18:03 11/24/20 09:30 Ondansetron Inj 4 Mg/2 Ml Vial IV PUSH 8 mg Q8H PRN Administration Nausea And Vomiting Pantoprazole Sodium 40 mg 11/22/20 21:00 11/24/20 09:19 Pantoprazole Sodium Iv 40 Mg Vial I
[2020-11-24 12:31] LABS: Glucose Point of Care 121 mg/dl (65-105)
--- NOTE | 2020-11-24 12:55 | WPDGIPROGNO ---
Progress Note: A&P Assessment and Plan (1) Nausea and vomiting: Code(s): R11.2 - Nausea with vomiting, unspecified Status: Acute Assessment and Plan: egd without major findings to explain symptoms, she had hyperemesis during - expected mild elevated hcg after miscarriage (ob on board) but n/v also could be affected by underlying DM this morning she is doing better, if no more nausea then she can go home with antiemetics and complete gastric emptying study as outpatient (2) Type 2 diabetes mellitus: Code(s): E11.9 - Type 2 diabetes mellitus without complications Status: Acute Assessment and Plan: on meds (3) Missed : Code(s): O02.1 - Missed Status: Acute Subjective Date/time seen: 11/24/20 12:55 Interval history: last night with several episodes of n/v, this morning she is doing much better Review of Systems Review of Systems: All systems reviewed & are unremarkable except as noted in HPI and below Exam Const: General: comfortable and no acute distress HENMT: General nose exam: Normal nares present Eyes: General: appearance normal, both eyes and all related structures Neck: Neck: no JVD Resp: Auscultation: clear to auscultation bilaterally Cardio: Rate: regular rate Rhythm: regular rhythm GI: Inspection: non-distended GI Palp: Yes Soft to palpation Skin: General skin exam: normal color Neuro: General: gait normal Speech: normal speech Extrem: General: normal to inspection Psych: Mental Status: mental status grossly normal Objective Data Vital Signs Vital Signs: Vital Signs - 24 hr 11/23/20 14:00 11/23/20 20:00 11/23/20 20:49 Temperature 98.1 F 97.4 F L Pulse Rate 77 77 89 Respiratory Rate 18 18 20 Blood Pressure 149/85 H 133/79 Pulse Oximetry 100 100 99 11/24/20 00:00 11/24/20 04:24 Temperature 97.1 F L 97.3 F L Pulse Rate 90 83 Respiratory Rate 18 20 Blood Pressure 117/73 126/79 Pulse Oximetry 98 99 Intake/Output Intake/Output: Intake & Output 11/21/20 11/22/20 11/23/20 11/24/20 23:59 23:59 23:59 23:59 Intake Total 500 4640 3975 2390 Output Total 3700 3525 800 Balance 500 900 537 2264 Meds/Results Medications: Active Medications Generic Name Dose Route Start Last Admin Trade Name Freq PRN Reason Stop Dose Admin Dextrose 12.5 gm 11/22/20 18:30 Dextrose 50% 25 Gm/50 Ml Syringe IV PUSH PRN PRN Hypoglycemia Protocol Glucagon 1 mg 11/22/20 18:30 Glucagon For Inj 1 Mg Vial IM PRN PRN Hypoglycemia Protocol Glucose 15 gm 11/22/20 18:30 Glucose Oral Gel 15 Gm Of Glucse In 37.5 Gm Tube PO PRN PRN Hypoglycemia Protocol Lactated Ringer's 1,000 mls @ 100 mls/hr 11/21/20 18:35 11/24/20 12:54 Lr - Lactated Ringers Iv IV CONT 100 mls/hr .Q10H CANDIDA Administration Dextrose 1,000 mls @ 100 mls/hr 11/22/20 18:30 Dextrose 5% 1,000 Ml IVPB PRN PRN Hypoglycemia Protocol Insulin Aspart 4 - 8 units 11/23/20 08:00 11/24/20 12:36 Insulin Aspart (*Bkc) 100 Units/Ml SUB-Q Not Given TIDWM CANDIDA Protocol Magnesium Hydroxide 30 ml 11/22/20 09:00 11/24/20 09:19 Magnesium Hydroxide Susp 30 Ml Udc PO 30 ml BID CANDIDA Administration Metoclopramide HCl 10 mg 11/21/20 18:03 11/23/20 17:33 Metoclopramide Hcl Inj 10 Mg/2 Ml Vial IV PUSH 10 mg Q6HR PRN Administration Nausea And Vomiting Ondansetron HCl 8 mg 11/21/20 18:03 11/24/20 09:30 Ondansetron Inj 4 Mg/2 Ml Vial IV PUSH 8 mg Q8H PRN Administration Nausea And Vomiting Pantoprazole Sodium 40 mg 11/22/20 21:00 11/24/20 09:19 Pantoprazole Sodium Iv 40 Mg Vial IV PUSH 40 mg Q12HR CANDIDA Administration Zolpidem Tartrate 10 mg 11/21/20 18:02 Zolpidem Tartrate (*Crx) 5 Mg Tablet PO HS PRN Insomnia Radiology Results: ITS Impressions Abdomen X-Ray 11/21/20 19:33 IMPRESSION: 1. Relative nir
[2020-11-24 13:55] VITALS: BP 128/86; PULSE 85; RESP 18; TEMP 36.3; O2SAT 100
--- NOTE | 2020-11-24 14:01 | PM.IMPN ---
Progress Note: A&P Assessment and Plan (1) Nausea and vomiting: Qualifiers: Vomiting type: unspecified Vomiting Intractability: intractable Qualified Code(s): R11.2 - Nausea with vomiting, unspecified Code(s): R11.2 - Nausea with vomiting, unspecified Status: Acute Assessment and Plan: May have gastroparesis with her underlying diabetes which may be exacerbated by . Patient is on Reglan at home. She will do outpatient gastric emptying study. Her symptoms are likely not related to her as her beta hCG has come down significantly to 500. Previously her nausea/vomiting was thought to be from hyperemesis gravidarum. (2) Type 2 diabetes mellitus: Qualifiers: Diabetes mellitus penitentiary insulin use: with penitentiary use Diabetes mellitus complication status: without complication Qualified Code(s): E11.9 - Type 2 diabetes mellitus without complications; Z79.4 - intermodal customer service (current) use of insulin Code(s): E11.9 - Type 2 diabetes mellitus without complications Status: Acute Assessment and Plan: Hemoglobin A1c 6.2, continue home diabetic regimen Levemir and metformin (3) hemorrhage: Qualifiers: hemorrhage type: secondary hemorrhage Qualified Code(s): O72.2 - Delayed and secondary hemorrhage Code(s): O72.1 - Other immediate hemorrhage Status: Acute Assessment and Plan: Expected post D&C. Patient states hemorrhage is slowing down significantly. (4) Missed : Code(s): O02.1 - Missed Status: Acute Assessment and Plan: Down trending beta hCG, less likely related to her nausea Additional Plan Diet: Regular DVT prophylaxis: SCDs Code status: Full code Disposition: Home with outpatient gastric emptying study Time Spent With Patient Time with patient: 25 - 35 minutes Subjective Date/time seen: 11/24/20 14:01 Patient feels better today. We may discharge home for outpatient gastric emptying setting as we are unable to do the study over the weekend. Her symptoms do not appear to be related to hyperemesis gravidarum as she has had her Dn a few weeks ago. Her beta hCG is also coming down to 500 and at this level it is likely unrelated to her symptoms. She may be having gastroparesis as she does have a history of diabetes. We will see if she tolerates lunch and if she does she will be discharged home with antiemetics for outpatient gastric emptying study. Patient denies fever, chills, nausea, vomiting, diarrhea, chest pain, abdominal pain. She states her nausea has resolved this morning however has not had anything to eat. Review of Systems Review of Systems: All systems reviewed & are unremarkable except as noted in HPI and below Exam Narrative: - GENERAL: Pleasant obese female no acute distress sitting comfortably in bed - EYES: EOMI. Anicteric. - HENT: Moist mucous membranes. - LUNGS: Clear to auscultation bilaterally, no wheezing, rhonchi, or rales. - CARDIOVASCULAR: Regular rate and rhythm. No murmur. No JVD. - ABDOMEN: Soft, non-tender and non-distended. No palpable masses. Bowel sounds present in all 4 quadrants. - EXTREMITIES: No edema. Peripheral pulses 2+. Non-tender. - NEUROLOGIC: No focal neurological deficits. CN II-XII grossly intact. - PSYCHIATRIC: Awake, Alert and oriented x 3. Appropriate mood and affect. - SKIN: No rashes or lesions. Warm. - LYMPH: No cervical lymphadenopathy. Objective Data Vital Signs Vital Signs: Vital Signs - 24 hr 11/23/20 20:00 11/23/20 20:49 11/24/20 00:00 Temperature 36.3 C L 36.2 C L Pulse Rate 77 89 90 Respiratory Rate 18 20 18 Blood Pressure 133/79 117/73 Pulse Oximetry 100 99 98 11/24/20 04:24 11/24/20 13:55 Temperature 36.3 C L 36.3 C L Pulse Rate 83 85 Respiratory Rate 20 18 Blood Pressure 126/79 128/86 Pulse Oximetry 99 100 Intake/Output Intake/Output: In
--- NOTE | 2020-11-24 14:56 | PM.DS ---
DS: Admitting Diagnosis Admitting Diagnosis Intractable nausea/vomiting DS: Discharge Diagnosis Discharge Diagnosis (1) Nausea and vomiting: Qualifiers: Vomiting type: unspecified Vomiting Intractability: intractable Qualified Code(s): R11.2 - Nausea with vomiting, unspecified Code(s): R11.2 - Nausea with vomiting, unspecified Status: Acute Assessment and Plan: May have gastroparesis with her underlying diabetes which may be exacerbated by . Patient is on Reglan and zofran at home. She will do outpatient gastric emptying study. Her symptoms are likely not related to her as her beta hCG has come down significantly to 500. Previously her nausea/vomiting was thought to be from hyperemesis gravidarum. (2) Type 2 diabetes mellitus: Qualifiers: Diabetes mellitus [facility] insulin use: with terminal computer operator use Diabetes mellitus complication status: without complication Qualified Code(s): E11.9 - Type 2 diabetes mellitus without complications; Z79.4 - long term care social worker (current) use of insulin Code(s): E11.9 - Type 2 diabetes mellitus without complications Status: Acute Assessment and Plan: Hemoglobin A1c 6.2, continue home diabetic regimen Levemir and metformin, diabetic diet (3) hemorrhage: Qualifiers: hemorrhage type: secondary hemorrhage Qualified Code(s): O72.2 - Delayed and secondary hemorrhage Code(s): O72.1 - Other immediate hemorrhage Status: Acute Assessment and Plan: post D&C. Patient states hemorrhage is slowing down significantly. DS: Summary Hospital Course Reason for hospitalization: intractable nausea vomiting Hospital Course: Patient is a 30-year-old female past medical history of diabetes (for the past 8 years) and recent miscarriage status post D&C late October presents to ED with intractable nausea vomiting. Patient has had multiple right upper quadrant ultrasounds showing gallbladder sludge with no cholecystitis. CT scan of her abdomen pelvis is normal as well. Patient had a normal EGD on 11/23. Gastroenterology recommends gastric emptying study which we are not able to perform this weekend, plan for outpatient Thursday. Patient's symptoms appear to have resolved on 11/24/2020 and she tolerated lunch. I am discharging patient home with Reglan and Zofran to complete workup outpatient. She may need to be on erythromycin for gastroparesis considering her diabetes history, we will wait for gastric emptying study results prior to starting any new medication. patient's vitals stable, labs stable, patient is stable for discharge home. OB would like to follow CG, we will order for labwork Thursday and she will f/u outpatient with FIRE PREVENTION ENGINEER. For patient to follow-up with PCP and GI next week after gastric emptying study. patient understands and agrees with plan. Status at Discharge Cognitive/behavioral status at discharge: at baseline Functional status at discharge: independent ambulation Overall status at discharge: patient is back to baseline Time Spent with Patient Time attestation: Total time spent providing and/or coordinating discharge services:35 Time spent: Greater than 30 minutes Exam Narrative: - GENERAL: Pleasant obese female no acute distress sitting comfortably in bed - EYES: EOMI. Anicteric. - HENT: Moist mucous membranes. - LUNGS: Clear to auscultation bilaterally, no wheezing, rhonchi, or rales. - CARDIOVASCULAR: Regular rate and rhythm. No murmur. No JVD. - ABDOMEN: Soft, non-tender and non-distended. No palpable masses. Bowel sounds present in all 4 quadrants. - EXTREMITIES: No edema. Peripheral pulses 2+. Non-tender. - NEUROLOGIC: No focal neurological deficits. CN II-XII grossly intact. - PSYCHIATRIC: Awake, Alert and oriented x 3. Appropriate mood and affect. - SKIN: No rashes or lesions. Warm. - LYMPH: No cervical lymphadenopathy. DS: Data Data Completed
== END 2020-11-24 16:45 | disposition home or self-care (01) | DRG 392 ==
PROVIDERS: Internal Medicine; Internal Medicine Gastroenterology; Admitting Provider Obstetrics & Gynecology; PCP Registered Nurse; Visit Provider Student in an Organized Health Care Education/Training Program
PROC: 0DJ08ZZ Inspection of Upper Intestinal Tract, Via Natural or Artificial Opening Endoscopic (ICD-10-PCS; CPT 43235; principal; 2020-11-23 14:15)
DX: R11.2 Nausea with vomiting, unspecified (principal); E11.9 Type 2 diabetes mellitus without complications; Z87.898 Personal history of other specified conditions; Z98.890 Other specified postprocedural states; Z79.4 Long term (current) use of insulin; Z79.899 Other long term (current) drug therapy
CPT/HCPCS: 36415; 74018; 80053; 82948; 83690; 84702; 85025; 88305; 96361; 96374; 96375; 96376; A9270; C9113; G0378; J2405; J2765; J7120

== ENCOUNTER 2020-11-26 11:45 | Outpatient (CLI) | payer OTHER, MEDICAID, SELFPAY | END 2020-11-26 11:46 | disposition home or self-care (01) | PROVIDERS: PCP Registered Nurse; Visit Provider Student in an Organized Health Care Education/Training Program | DX: O02.1 Missed abortion (principal); O72.1 Other immediate postpartum hemorrhage; Z3A.00 Weeks of gestation of pregnancy not specified | CPT/HCPCS: 36415; 84702 ==

== ENCOUNTER 2020-11-28 06:53 | Outpatient (CLI) | payer OTHER, MEDICAID, SELFPAY ==
--- NOTE | ~2020-11-28 | NM_ITS ---
EXAM: NM gastric emptying study DATE: 11/28/2020 12:17 INDICATION: Nausea and vomiting, unspecified. TECHNIQUE: A gastric emptying study was performed using the methodology of Warren BRAND, et al. J Nucl Med 2007; 48:568-572. The patient was given a meal consisting of 2 scrambled eggs labeled with 0.972 mCi Tc-99m sulfur colloid, 2 slices of toast, two packages of jam, and approximately 120 mL of water . Simultaneous anterior and posterior 1-min images of the abdomen were obtained with the patient supi ne at multiple time points over a total period of 4 hours. The geometric mean of anterior and posteri or views was determined, and the percentage retention was calculated for each time point. COMPARISON: CT abdomen and pelvis 11/08/2020 FINDINGS: Gastric retention of the radiotracer-labeled meal was 85%, 70%, and 55% at the 1-hour, 2-h our, and 4-hour time points, respectively. With this technique, apparent rapid gastric emptying is louis ggested by <30% gastric retention at 1 hour. Delayed gastric emptying is defined by gastric retention of >90% at 1 hour, >60% retention at 2 hours, or >10% retention at 4 hours. IMPRESSION: 1. Delayed gastric emptying. Reviewed, dictated and finalized at location B.
== END 2020-11-28 06:54 | disposition home or self-care (01) ==
PROVIDERS: PCP Registered Nurse; Visit Provider Obstetrics & Gynecology
DX: R11.2 Nausea with vomiting, unspecified (principal); K30 Functional dyspepsia
CPT/HCPCS: 78264; A9541

== ENCOUNTER 2020-11-30 19:40 | Emergency (ER) | payer OTHER, MEDICAID, SELFPAY ==
[2020-11-30 19:46] VITALS: BP 132/87; PULSE 93; RESP 16; TEMP 36.2; O2SAT 98
[2020-11-30 20:08] LABS: Basophils Percent Auto 0.2 % (0.2-1.2); Eosinophils Percent Auto 0.2 % (0-4.4); Hematocrit 41.4 % (37.0-47.0); Hemoglobin 13.2 g/dL (12.0-15.0); Immature Granulocyte Absolute 0.04 K/mm3 (0.00-0.031); Immature Granulocyte Percent A 0.3 % (0-0.5); Lymphocytes Absolute Auto 2.91 K/mm3 (0.9-3.2); Lymphocytes Percent Auto 23.1 % (18.3-44.2); Mean Corpuscular HGB Conc 31.9 g/dl (32-36); Mean Corpuscular Hemoglobin 26.5 pg (26-34); Mean Platelet Volume 10.3 fl (7.4-10.4); Monocytes Absolute Auto 0.8 K/mm3 (0.1-0.6); Monocytes Percent Auto 6.3 % (2.6-8.5); Neutrophils Absolute Auto 8.8 K/mm3 (1.3-6.7); Neutrophils Percent Auto 69.9 % (45.5-73.1); Platelet Count Result 383 k/mm3 (150-375); Red Blood Count 4.99 M/mm3 (4.2-5.4); Red Cell Distribution Width 13.6 % (11.5-14.5); White Blood Count 12.6 K/mm3 (4.5-10.0)
[2020-11-30 20:22] LABS: Add Urine Microscopic? YES; Appearance Urine Clear (Clear); Bacteria Urine Trace /hpf; Bilirubin Urine Negative (Negative); Blood Urine 2+ (Negative); Color Urine Amber (Yellow); Glucose Urine UA Negative (Negative); Ketones Urine 2+ mg/dL (Negative); Leukocyte Esterase Ur 2+ LEU/UL (Negative); Nitrate Urine Negative (Negative); Protein Urine 1+ mg/dL (Negative); RBC Urine 0-2 /hpf (0-2); Specific Grav Ur 1.026 (1.001-1.035)
[2020-11-30 20:33] LABS: Alanine Aminotransferase 30 U/L (4-35); Alkaline Phosphatase 71 U/L (38-126); Anion Gap 16 mmol/L (8-16); Aspartate Amino Transferase 29 U/L (14-36); Bilirubin,Total 1.1 mg/dL (0.2-1.3); Blood Urea Nitrogen 4 mg/dL (7-17); Calcium 10.1 mg/dL (8.4-10.2); Carbon Dioxide 23 mmol/L (22-30); Chloride 97 mmol/L (98-107); Estimated CRCL calculation 139 ml/min; Estimated Glomerular Filt Rate > 60; Glucose 154 mg/dL (65-110); Lipase 49 U/L (23-300); Potassium 3.6 mmol/L (3.4-5.0); Sodium 136 mmol/L (137-145)
[2020-11-30 23:25] VITALS: PULSE 104; O2SAT 99
[2020-12-01] MEDS: SODIUM CHLORIDE 0.9% IV 1,000 ML 999 ML IV CONT (00:18)
[2020-12-01] MEDS: METOCLOPRAMIDE HCL INJ 10 MG/2 ML VIAL IV PUSH (00:20)
[2020-12-01 00:21] VITALS: BP 121/82; PULSE 92
[2020-12-01 00:23] VITALS: BP 128/81; PULSE 102
[2020-12-01 00:25] VITALS: BP 129/92; PULSE 115
--- NOTE | 2020-12-01 02:04 | ED.NAVMDI ---
HPI - Nausea/Vomiting/Diarrhea General Chief complaint: Nausea/Vomiting/Diarrhea Stated complaint: vomiting Time Seen by Provider: 11/30/20 23:22 History of Present Illness HPI Narrative: Patient is a 30-year-old female who presents ER with nausea and vomiting. Ongoing for months. Recently had a gastric emptying study that shows delayed transit. Patient has history of diabetes is uncontrolled for years. She has follow-up with GI to find out the results of her gastric emptying study and figure out a treatment plan. She has been taking Zofran at home for nausea as well as Reglan 10 mg 3 times daily. Denies fevers or chills or sweats. Unable to report how much she has vomited today. No blood. No diarrhea. Related Data Home Medications Medication Instructions Recorded Confirmed famotidine 20 mg PO BID 11/07/20 11/21/20 omeprazole 40 mg PO DAILY 11/07/20 11/21/20 ondansetron 8 mg PO Q8H PRN 11/07/20 11/21/20 metformin 500 mg PO DAILY 11/21/20 11/21/20 Allergies Allergy/AdvReac Type Severity Reaction Status Date / Time No Known Allergies Allergy Unknown Verified 11/30/20 23:31 Review of Systems Review of Systems: All systems reviewed & are unremarkable except as noted in HPI and below Constitutional: Constitutional: Denies chills, Denies fever(s) and Denies weakness Cardiovascular: Cardiovascular: Denies chest pain and Denies radiating jaw, neck or arm pain Respiratory: Respiratory: Denies cough, Denies dyspnea and Denies wheezing Gastrointestinal: Gastrointestinal: Denies abdominal pain, Denies constipation, Denies diarrhea, Reports nausea and Reports vomiting Genitourinary: Genitourinary: Denies nocturia, Denies dysuria and Denies flank pain PMFSH Past Medical History Medical History Missed at 14 weeks gestation. Approx two weeks ago Nausea and vomiting hemorrhage Type 2 diabetes mellitus Surgical History Surgical History Delivery by section Family History Family History Mother Diabetes mellitus Father Diabetes mellitus Sibling Diabetes mellitus Social History Social History Social History: She lives at home with her and 4 children (3 biologic and her niece that she is guardian). Lifelong nonsmoker. Rare alcohol use. No drug use. She is a full code. She nominated her to be the individual would make medical decisions for her if she is unable. Smoking status: Never smoker Second hand tobacco smoke exposure: No Alcohol intake: never Substance use: never Spiritual care concerns: No Exam Narrative: GENERAL: Well-appearing, well-nourished, and in no acute distress. HEAD: Normocephalic, atraumatic. CHEST: Clear to auscultation. No respiratory distress. HEART: Regular rate and rhythm. Normal peripheral pulses. ABDOMEN: Soft, nontender, nondistended, normal active bowel sounds. EXTREMITIES: Normal range of motion. No edema. SKIN: Warm, dry, no rash. NEURO: Alert and oriented x3. PSYCH: Normal mood and affect. Course Course Emergency Course: Patient feels improved with IV Reglan. Has been able to tolerate oral fluids. Recommend continuing home regimen and following up with her GI physician. Vital Signs Vital signs: Vital Signs Temperature 97.1 F L 11/30/20 19:46 Pulse Rate 93 11/30/20 19:46 Respiratory Rate 16 11/30/20 19:46 Blood Pressure 132/87 11/30/20 19:46 Pulse Oximetry 98 11/30/20 19:46 Temperature 97.1 F L 11/30/20 19:46 Pulse Rate 93 12/01/20 02:19 Respiratory Rate 14 12/01/20 02:19 Blood Pressure 134/92 H 12/01/20 02:19 Pulse Oximetry 97 12/01/20 02:19 MDM - Nausea/Vomiting/Diarrhea Lab Data Result diagrams: 11/30/20 19:57 11/30/20 1
[2020-12-01 02:19] VITALS: BP 134/92; PULSE 93; RESP 14; O2SAT 97
== END 2020-12-01 02:18 | disposition home or self-care (01) ==
PROVIDERS: Emergency Provider Emergency Medicine; PCP Registered Nurse
DX: E11.43 Type 2 diabetes mellitus with diabetic autonomic (poly)neuropathy (principal); K31.84 Gastroparesis; Z79.84 Long term (current) use of oral hypoglycemic drugs
CPT/HCPCS: 36415; 80053; 81001; 83690; 85025; 87086; 87088; 96361; 96374; 99284; J2765; J7030

== ENCOUNTER → 2021-01-02 13:46 | Outpatient (CLI) | payer OTHER, MEDICAID, SELFPAY ==
--- NOTE | ~2021-01-02 | XR_ITS ---
EXAMINATION: XR chest 2V 01/02/2021 14:23 INDICATION: Gestational trophoblastic disease PROCEDURE: 2 view chest COMPARISON: No prior studies for comparison. FINDINGS: The lungs are clear. The cardiomediastinal silhouette is within normal limits. There are no pleural effusions. There is no pneumothorax suspected. IMPRESSION: 1: NO ACUTE CARDIOPULMONARY DISEASE. Reviewed, dictated and finalized at location A.
== END ==
PROVIDERS: Visit Provider Obstetrics & Gynecology
DX: O01.9 Hydatidiform mole, unspecified (principal); Z3A.00 Weeks of gestation of pregnancy not specified
CPT/HCPCS: 71046

== ENCOUNTER 2021-02-05 08:50 | Outpatient (CLI) | payer OTHER, SELFPAY ==
[2021-02-05 09:37] LABS: Anion Gap 9 mmol/L (8-16); Blood Urea Nitrogen 10 mg/dL (7-17); Calcium 10.2 mg/dL (8.4-10.2); Carbon Dioxide 30 mmol/L (22-30); Chloride 99 mmol/L (98-107); Estimated Glomerular Filt Rate > 60; Glucose 170 mg/dL (65-110); Potassium 4.2 mmol/L (3.4-5.0); Sodium 138 mmol/L (137-145)
== END 2021-02-05 08:51 | disposition home or self-care (01) ==
LOC: ANHSURGERY 08:53
PROVIDERS: Anesthesiology; PCP Registered Nurse; Visit Provider Obstetrics & Gynecology
DX: E11.9 Type 2 diabetes mellitus without complications (principal); Z01.818 Encounter for other preprocedural examination
CPT/HCPCS: 36415; 80048

== ENCOUNTER 2021-02-06 02:14 | Day surgery (SDC) | payer OTHER, SELFPAY ==
[2021-01-31 08:54] VITALS: BMI 34.0
--- NOTE | 2021-02-05 11:33 | WPDANESEPPF ---
Anes - Initial Pre Proc Eval Procedure: Operation Date: 02/06/21 07:30 Proposed Procedures p Hysteroscopy, Dilation and Curettage - Lluvia Alcantar MD Date/Time: 02/05/21 11:33 Surgeon: Lluvia Alcantar MD Pre Op Diagnosis: abnormal uterine bleeding Patient Data Age: 30 Gender: F Height: 1.63 m Weight: 89.81 kg Allergies Allergy/AdvReac Type Severity Reaction Status Date / Time No Known Allergies Allergy Unknown Verified 02/06/21 06:50 Home Medications Medication Instructions Recorded Confirmed Type metformin 1,000 mg PO BID 11/21/20 02/06/21 History metoclopramide HCl 5 mg tablet 10 mg PO TID PRN 30 Days #180 12/05/20 02/06/21 Rx tablet prochlorperazine maleate 10 mg See Rx Instructions .ROUTE 01/14/21 02/06/21 Rx tablet .COMPLEX #90 tablet Levemir FlexTouch U-100 Insuln 20 unit SUBCUT HS 01/31/21 02/06/21 History atorvastatin 10 mg PO DAILY 01/31/21 01/31/21 History lisinopril 5 mg PO DAILY 01/31/21 01/31/21 History Patient hx anesthesia problems: none Family hx anesthesia problems: none Results Review: All pre-operative results and documents have been reviewed as part of the pre-operative evaluation. [facility] Past Medical History Medical History (Updated 12/14/20 @ 12:32 by Lay Clifford APN-Elton) Gastroparesis Missed at 14 weeks gestation. Approx two weeks ago Nausea and vomiting Obese hemorrhage Type 2 diabetes mellitus Surgical History Surgical History Delivery by section Family History Family History Mother Diabetes mellitus Father Diabetes mellitus Sibling Diabetes mellitus Social History Social History Social History: She lives at home with her and 4 children (3 biologic and her niece that she is guardian). Lifelong nonsmoker. Rare alcohol use. No drug use. She is a full code. She nominated her to be the individual would make medical decisions for her if she is unable. Smoking status: Never smoker Second hand tobacco smoke exposure: No Alcohol intake: never Substance use: never Substance use type: does not use Living arrangements: with family Spiritual care concerns: No Anes - Eval Final PreProcedure Day of Procedure 02/05/21 11:33 Patient weight: obese Heart: regular rate and rhythm Lungs: clear to auscultation and normal air movement Airway: Mallampati scale class II Neurological: alert and oriented Last oral intake: >/= 8 hours ASA classification: III Emergent: no Anesthetic plan: proceed Anesthesia type and monitoring: general GIVS and LMA Results Review: All pre-operative results and documents have been reviewed as part of the pre-operative evaluation. Informed Consent: The patient's anesthetic plan and its attendant risks and benefits were discussed with the patient/family/POA. Questions were solicited and answers provided to the satisfaction of the patient/family/POA.
[2021-02-06] MEDS: ACETAMINOPHEN 500 MG TABLET 1000 MG PO (06:40)
[2021-02-06 06:49] LABS: Glucose Point of Care 144 mg/dl (65-105)
[2021-02-06] MEDS: LACTATED RINGERS 1,000 ML 30 ML IV CONT ×2 (06:54→08:12)
[2021-02-06 06:57] VITALS: BP 123/76; PULSE 85; RESP 16; TEMP 36.3; O2SAT 100
--- NOTE | 2021-02-06 07:22 | PM.IMHP ---
H&P: HPI History of Present Illness Date/Time: 02/06/21 07:22 Chief Complaint: persistent bleeding Narrative: Kelly is s/p IUFD delivery in October, with persistent off and on heavy bleeding and hcg still pos. Had D and C after delivery of fetus. hcg was slowly decreasing, then plateaued and increased to about 43. saw heme onc and they recommended repeat D and C but were not worried about GTD. Review of Systems Review of Systems: All systems reviewed & are unremarkable except as noted in HPI and below PMFSH Past Medical History Medical History (Updated 02/06/21 @ 07:26 by Lluvia Alcantar MD) Gastroparesis Missed at 14 weeks gestation. Approx two weeks ago Nausea and vomiting Obese hemorrhage Type 2 diabetes mellitus Surgical History Surgical History Delivery by section Family History Family History Mother Diabetes mellitus Father Diabetes mellitus Sibling Diabetes mellitus Social History Social History Social History: She lives at home with her and 4 children (3 biologic and her niece that she is guardian). Lifelong nonsmoker. Rare alcohol use. No drug use. She is a full code. She nominated her to be the individual would make medical decisions for her if she is unable. Smoking status: Never smoker Second hand tobacco smoke exposure: No Alcohol intake: never Substance use: never Substance use type: does not use Living arrangements: with family Spiritual care concerns: No Meds Home Medications and Allergies Home Medications Medication Instructions Recorded Confirmed Type metformin 1,000 mg PO BID 11/21/20 02/06/21 History metoclopramide HCl 5 mg tablet 10 mg PO TID PRN 30 Days #180 12/05/20 02/06/21 Rx tablet prochlorperazine maleate 10 mg See Rx Instructions .ROUTE 01/14/21 02/06/21 Rx tablet .COMPLEX #90 tablet Levemir FlexTouch U-100 Insuln 20 unit SUBCUT HS 01/31/21 02/06/21 History atorvastatin 10 mg PO DAILY 01/31/21 01/31/21 History lisinopril 5 mg PO DAILY 01/31/21 01/31/21 History Allergies Allergy/AdvReac Type Severity Reaction Status Date / Time No Known Allergies Allergy Unknown Verified 02/06/21 06:50 Vital Signs Vital Signs - 24 hr 02/06/21 06:57 Temperature 97.3 F L Pulse Rate 85 Respiratory Rate 16 Blood Pressure 123/76 Pulse Oximetry 100 Exam Const: General: no acute distress Resp: Effort & Inspection: normal respiratory effort Auscultation: clear to auscultation bilaterally Cardio: Rate: regular rate Rhythm: regular rhythm GI: GI Palp: Yes Soft to palpation Extrem: General: normal to inspection Assessment and Plan Assessment and plan (1) DUB (dysfunctional uterine bleeding): Code(s): N93.8 - Other specified abnormal uterine and vaginal bleeding Status: Acute Additional Plan Will proceed with HSC D and C for possible retained POC vs GTD Discussed RBA and consented hcg and cbc today
--- NOTE | 2021-02-06 07:26 | WPDHPUPDATE1 ---
History and Physical Update Update Date/Time: 02/06/21 07:26 History and Physical has been reviewed, including an updated exam of the patient. There are NO changes in the patient's condition. Risks, benefits, and alternatives have been discussed and questions answered. Patient agrees to proceed with procedure.
[2021-02-06] MEDS: BUPIVACAINE HCL 0.25% PF 30 ML VIAL INFILTRATE (08:06)
--- NOTE | 2021-02-06 08:08 | P.OP_ITS ---
Procedure Note - Detailed Date of Procedure 02/06/21 Pre-op Diagnosis abnormal uterine bleeding Post-op Diagnosis same Procedure Performed Hysteroscopy and dilation and curettage Surgeon Lluvia Alcantar MD Lawnmower Mechanic none Anesthesia MAC Indications see H and P Findings thickened appearing endometrium, especially at the fundus Description of Procedure The patient was taken to the OR and placed in dorthal lithotomy in [facility] [place]. She received MAC anesthesia. A speculum was placed and the cervix grasped with a single tooth tenaculum. 10cc of 0.25% marcaine with epinephrine was instilled in a paracervical block. The cervix was sequentially dilated to accomodate a 5mm hysteroscope. The hysteroscope was inserted and the uterine cavity was visualized with the findings noted above. The hysteroscope was removed and a sharp curettage was performed, obtaining endometrial curettings to send to pathology. Curettage was continued, obtaining copious curettings, until cry was noted circumferentially. The tenaculum was removed and the cervix was made hemostatic with pressure. The speculum was removed. The patient tolerated the procedure well. Fluid deficit was 100cc. Estimated Blood Loss 20 Drains No Packing No Pathology yes Complications No immediate complications Condition stable Disposition same day
[2021-02-06 08:15] VITALS: BP 93/54; PULSE 84; RESP 16; O2SAT 92
[2021-02-06 08:27] LABS: Glucose Point of Care 137 mg/dl (65-105)
[2021-02-06 08:43] LABS: Hematocrit 30.3 % (37.0-47.0); Hemoglobin 9.5 g/dL (12.0-15.0); Mean Corpuscular HGB Conc 31.4 g/dl (32-36); Mean Corpuscular Hemoglobin 24.7 pg (26-34); Mean Corpuscular Volume 78.9 fl (80-100); Mean Platelet Volume 10.8 fl (7.4-10.4); Platelet Count Result 313 k/mm3 (150-375); Red Blood Count 3.84 M/mm3 (4.2-5.4); Red Cell Distribution Width 13.2 % (11.5-14.5); White Blood Count 8.8 K/mm3 (4.5-10.0)
[2021-02-06 08:45] VITALS: BP 109/75; PULSE 75; RESP 16
[2021-02-06 08:52] LABS: Beta HCG Quantitative 9.12 mIU/ML
[2021-02-06 09:10] VITALS: BP 121/83; PULSE 73; RESP 16
== END 2021-02-06 09:21 | disposition home or self-care (01) ==
PROVIDERS: PCP Registered Nurse; Visit Provider Obstetrics & Gynecology
PROC: 0U5B8ZZ Destruction of Endometrium, Via Natural or Artificial Opening Endoscopic (ICD-10-PCS; CPT 58563; principal; 2021-02-06 07:30)
DX: O03.4 Incomplete spontaneous abortion without complication (principal); E11.9 Type 2 diabetes mellitus without complications; K31.84 Gastroparesis; Z79.84 Long term (current) use of oral hypoglycemic drugs; Z79.4 Long term (current) use of insulin
CPT/HCPCS: 59812; 36415; 80048; 82948; 84702; 85027; 88305; A9270; J2250; J2405; J2704; J3010; J7030; J7120

== ENCOUNTER 2021-09-18 01:23 | Day surgery (SDC) | payer OTHER, SELFPAY ==
[2021-09-16 08:30] VITALS: BMI 38.1
--- NOTE | 2021-09-16 08:37 | PC.NURSE ---
Report to the Outpatient Waiting Room, entrance under the green pavilion located off [facility], at time 0630 on date 09/18/21. OR Time: 0830. - You and your visitor will be asked a series of questions to screen for COVID 19 for your protection. - Only one visitor is allowed at this time. - The patient visitor is requested to leave or wait in car when not with patient. - A mask is required within the hospital. Patients may have clear liquids (water, carbonated beverages, clear teas, apple juice) until 3 hours prior to surgery with a maximum of 20 ounces. - No food from midnight until time of surgery Take the following medications with a SIP of water the morning of surgery: REGLAN Medications to discontinue per physician: N/A Date to take last dose: N/A Please no make-up, nail estonian, hairspray, perfume, deodorant, or body powder the day of surgery. No jewelry (including any body piercings) or valuables the day of surgery, leave them at home. Please take a shower or bath the night before, or the morning of, surgery with an antibacterial soap. Wear comfortable, loose fitting clothing. - Jewelry must be removed prior to entering the operating room. Rings and piercings that are not removed may be cut off. - The hospital will not accept responsibility for valuables. - Please leave all valuables, including medications, at home the day of surgery. If you are going home after surgery, a licensed petrol tanker driver must drive you home. - NO public transportation without another adult. - We recommend that an adult stay with you for 24 hours following discharge. - We also recommend that you do not drive, make important decision, drink alcoholic beverages, or take any drugs that were not prescribed by your health care provider for at least 24 hours after your discharge time. Follow any additional instructions given to you from your surgeon. If you or anyone in your household have experienced Covid symptoms in the past week, please notify your surgeon or the nurse liaison at the phone number below for possible testing. Telephone instructions given to PT - LISANDRO MACIAS and asked if any additional questions and then verbalized understanding. Patient advised to call surgeon office or pre surgery nurse liaison [phone] if any additional questions.
--- NOTE | 2021-09-17 13:50 | WPDANESEPPF ---
Anes - Initial Pre Proc Eval Procedure: Operation Date: 09/18/21 08:30 Proposed Procedures p Suction Dilatation and Curettage - Lluvia Alcantar MD Date/Time: 09/17/21 13:50 Surgeon: Lluvia Alcantar MD Pre Op Diagnosis: missed AB Patient Data Age: 31 Gender: F Height: 1.63 m Weight: 100.7 kg Allergies Allergy/AdvReac Type Severity Reaction Status Date / Time No Known Allergies Allergy Unknown Verified 09/18/21 06:29 Home Medications Medication Instructions Recorded Confirmed Type metformin 500 mg tablet,extended 1,000 mg PO BID 11/21/20 09/18/21 History release 24 hr insulin detemir U-100 100 unit/mL 20 unit subcut BID 01/31/21 09/18/21 History (3 mL) subcutaneous pen (Levemir FlexTouch U-100 Insulin) metoclopramide HCl 5 mg tablet See Rx Instructions .Route 05/14/21 09/18/21 Rx .COMPLEX #180 tabs ondansetron 4 mg disintegrating 8 mg PO Q8H PRN nausea and 06/05/21 09/18/21 Rx tablet vomiting #30 tabs prochlorperazine 25 mg rectal 25 mg RECTAL Q12H PRN nausea and 06/05/21 09/18/21 Rx suppository (Compazine) vomiting #12 ea Patient hx anesthesia problems: none Family hx anesthesia problems: none Results Review: All pre-operative results and documents have been reviewed as part of the pre-operative evaluation. [facility] Past Medical History Medical History (Updated 09/17/21 @ 13:51 by Ady Adams MD) DUB (dysfunctional uterine bleeding) Gastroparesis Missed at 14 weeks gestation. Approx two weeks ago Nausea and vomiting Obese hemorrhage Type 2 diabetes mellitus Surgical History Surgical History Delivery by section Family History Family History Mother Diabetes mellitus Father Diabetes mellitus Sibling Diabetes mellitus Social History Social History Social History: She lives at home with her and 4 children (3 biologic and her niece that she is guardian). Lifelong nonsmoker. Rare alcohol use. No drug use. She is a full code. She nominated her to be the individual would make medical decisions for her if she is unable. Smoking status: Never smoker Second hand tobacco smoke exposure: No Alcohol intake: never Substance use: never Substance use type: does not use Living arrangements: with family Gender identity (if verbalized by the patient): Female Sexual Orientation (if Verbalized by the Patient): Straight or Heterosexual Spiritual care concerns: No Anes - Eval Final PreProcedure Day of Procedure 09/17/21 13:50 Patient weight: obese Heart: regular rate and rhythm Lungs: clear to auscultation and normal air movement Airway: Mallampati scale class II Neurological: alert and oriented Last oral intake: >/= 8 hours ASA classification: III Emergent: no Anesthetic plan: proceed Anesthesia type and monitoring: general GIVS and LMA Results Review: All pre-operative results and documents have been reviewed as part of the pre-operative evaluation. Informed Consent: The patient's anesthetic plan and its attendant risks and benefits were discussed with the patient/family/POA. Questions were solicited and answers provided to the satisfaction of the patient/family/POA.
[2021-09-18 06:35] VITALS: BP 122/72; PULSE 81; RESP 20; TEMP 36.4; O2SAT 100
[2021-09-18 07:46] LABS: Anion Gap 8 mmol/L (8-16); Blood Urea Nitrogen 8 mg/dL (7-17); Calcium 8.7 mg/dL (8.4-10.2); Carbon Dioxide 23 mmol/L (22-30); Chloride 103 mmol/L (98-107); Estimated CRCL calculation 187 ml/min; Estimated Glomerular Filt Rate > 60; Glucose 133 mg/dL (65-110); Potassium 4.1 mmol/L (3.4-5.0); Sodium 134 mmol/L (137-145)
--- NOTE | 2021-09-18 08:24 | PM.IMHP ---
H&P: HPI History of Present Illness Date/Time: 09/18/21 08:24 Chief Complaint: miscarriage Narrative: Kelly is a 31yo with nonviable . No progression on US in 2 weeks and minimal rise in hcg- very abnormal. She has uncontrolled DM and was not taking any of her medications until found out . A1C was 9.7. Review of Systems Review of Systems: All systems reviewed & are unremarkable except as noted in HPI and below PMFSH Past Medical History Medical History (Updated 09/18/21 @ 08:26 by Lluvia Alcantar MD) DUB (dysfunctional uterine bleeding) Gastroparesis Missed at 14 weeks gestation. Approx two weeks ago Nausea and vomiting Obese hemorrhage Type 2 diabetes mellitus Surgical History Surgical History Delivery by section Family History Family History Mother Diabetes mellitus Father Diabetes mellitus Sibling Diabetes mellitus Social History Social History Social History: She lives at home with her and 4 children (3 biologic and her niece that she is guardian). Lifelong nonsmoker. Rare alcohol use. No drug use. She is a full code. She nominated her to be the individual would make medical decisions for her if she is unable. Smoking status: Never smoker Second hand tobacco smoke exposure: No Alcohol intake: never Substance use: never Substance use type: does not use Living arrangements: with family Gender identity (if verbalized by the patient): Female Sexual Orientation (if Verbalized by the Patient): Straight or Heterosexual Spiritual care concerns: No Meds Home Medications and Allergies Home Medications Medication Instructions Recorded Confirmed Type metformin 500 mg tablet,extended 1,000 mg PO BID 11/21/20 09/18/21 History release 24 hr insulin detemir U-100 100 unit/mL 20 unit subcut BID 01/31/21 09/18/21 History (3 mL) subcutaneous pen (Levemir FlexTouch U-100 Insulin) metoclopramide HCl 5 mg tablet See Rx Instructions .Route 05/14/21 09/18/21 Rx .COMPLEX #180 tabs ondansetron 4 mg disintegrating 8 mg PO Q8H PRN nausea and 06/05/21 09/18/21 Rx tablet vomiting #30 tabs prochlorperazine 25 mg rectal 25 mg RECTAL Q12H PRN nausea and 06/05/21 09/18/21 Rx suppository (Compazine) vomiting #12 ea Allergies Allergy/AdvReac Type Severity Reaction Status Date / Time No Known Allergies Allergy Unknown Verified 09/18/21 06:29 Exam Const: General: no acute distress Resp: Effort & Inspection: normal respiratory effort Auscultation: clear to auscultation bilaterally Cardio: Rate: regular rate Rhythm: regular rhythm GI: GI Palp: Yes Soft to palpation Extrem: General: normal to inspection H&P: Results Labs Labs: [facility] 09/18/21 07:10 Sodium 134 L Potassium 4.1 Chloride 103 Carbon Dioxide 23 BUN 8 Creatinine 0.40 L Glucose 133 H Calcium 8.7 Assessment and Plan Assessment and plan (1) Missed : Code(s): O02.1 - Missed Status: Acute Plan Consented for suction D and C, will proceed O pos encouraged BC until A1C normalized
--- NOTE | 2021-09-18 08:26 | WPDHPUPDATE1 ---
History and Physical Update Update Date/Time: 09/18/21 08:26 History and Physical has been reviewed, including an updated exam of the patient. There are NO changes in the patient's condition. Risks, benefits, and alternatives have been discussed and questions answered. Patient agrees to proceed with procedure.
[2021-09-18] MEDS: DOXYCYCLINE 100 MG/NS 100 ML 100 MG/100 ML BAG IVPB (08:32)
[2021-09-18] MEDS: BUPIVACAINE HCL 0.25% PF 30 ML VIAL 10 ML INFILTRATE (08:42)
[2021-09-18] MEDS: ACETAMINOPHEN 500 MG TABLET 1000 MG PO (08:42)
[2021-09-18] MEDS: KETOROLAC 30 MG/ML VIAL (*BKC) IV PUSH (08:48)
--- NOTE | 2021-09-18 08:50 | W.PM.PROC2 ---
Procedure Note - Detailed Date of Procedure 09/18/21 Pre-op Diagnosis missed AB Post-op Diagnosis Same Procedure Performed suction D and C Surgeon Lluvia Alcantar MD Anesthesia MAC Indications blighted ovum with no change on US in 2 weeks and inappropriately rising hcg. Description of Procedure The patient was taken to the OR and placed in supine position in dorsal lithotomy. She received MAC anesthesia and doxycycline. She was prepped and draped in normal fashion. A speculum was placed and the cervix was grasped with a single tooth tenaculum. A paracervical block was placed with 10cc 0.25% marcaine. The cervix was sequentially dilated to 8 rousseau. The suction was tested and then the suction catheter was inserted into the uterine cavity. Several passes were made until no further products of conception were obtained. The tenaculum was removed and hemostasis was obtained with pressure and monsel's solution. The speculum was removed. The patient tolerated the procedure well and was taken to the recovery room in stable condition. Estimated Blood Loss 20 Drains No Packing No Pathology Yes Complications No immediate complications Condition Stable Disposition Same day
[2021-09-18] MEDS: LACTATED RINGERS 1,000 ML 30 ML IV CONT (08:52)
[2021-09-18 08:55] VITALS: BP 94/51; PULSE 78; RESP 16; O2SAT 95
[2021-09-18 09:25] VITALS: BP 107/59; PULSE 74; RESP 16; O2SAT 97
[2021-09-18 09:55] VITALS: BP 106/78; PULSE 71; RESP 16
== END 2021-09-18 10:11 | disposition home or self-care (01) ==
PROVIDERS: Anesthesiology; PCP Registered Nurse; Visit Provider Obstetrics & Gynecology
PROC: (CPT 59820; principal; 2021-09-18 08:30)
DX: O02.1 Missed abortion (principal); E11.9 Type 2 diabetes mellitus without complications; K31.84 Gastroparesis; E66.9 Obesity, unspecified; Z68.38 Body mass index [BMI] 38.0-38.9, adult; Z79.84 Long term (current) use of oral hypoglycemic drugs; Z79.4 Long term (current) use of insulin
CPT/HCPCS: 59820; 36415; 80048; 88305; A9270; J1885; J2210; J2250; J2704; J3010; J7120

== ENCOUNTER 2021-11-03 10:06 | Emergency (ER) | payer OTHER, SELFPAY ==
--- NOTE | ~2021-11-03 | XR_ITS ---
EXAMINATION: XR chest 2V 11/03/2021 10:30 INDICATION: Lower midline chest pain PROCEDURE: 2 view chest COMPARISON: 01/02/2021 FINDINGS: The lungs are clear. The cardiomediastinal silhouette is within normal limits. There are no pleural effusions. There is no pneumothorax suspected. IMPRESSION: 1: NO ACUTE CARDIOPULMONARY DISEASE. Reviewed, dictated and finalized at location A.
[2021-11-03 10:10] VITALS: BP 132/85; PULSE 106; RESP 26; TEMP 36.1; O2SAT 98
--- NOTE | 2021-11-03 10:14 | ECG_ITS ---
Measurements Intervals [place] Rate: 100 P: 60 MO: 180 QRS: 31 QRSD: 88 T: 15 QT: 346 QTc: 448 Interpretive Statements SINUS TACHYCARDIA BORDERLINE ST-T WAVE ABNORMALITY- ANTEROLAT/INF LEADS BASELINE ARTIFACT- I, II, AVR BORDERLINE ECG Electronically Signed On 11-03-2021 14:15:25 CDT by Alok Barros D.O.
[2021-11-03 10:15] LABS: Glucose Point of Care 240 mg/dl (65-105)
[2021-11-03 10:33] LABS: Basophils Percent Auto 0.1 % (0.2-1.2); Eosinophils Percent Auto 0.1 % (0-4.4); Hematocrit 42.8 % (37.0-47.0); Hemoglobin 13.4 g/dL (12.0-15.0); Immature Granulocyte Absolute 0.05 K/mm3 (0.00-0.031); Immature Granulocyte Percent A 0.4 % (0-0.5); Lymphocytes Absolute Auto 1.93 K/mm3 (0.9-3.2); Lymphocytes Percent Auto 15.7 % (18.3-44.2); Mean Corpuscular HGB Conc 31.3 g/dl (32-36); Mean Corpuscular Hemoglobin 25.2 pg (26-34); Mean Corpuscular Volume 80.5 fl (80-100); Mean Platelet Volume 10.8 fl (7.4-10.4); Monocytes Absolute Auto 0.2 K/mm3 (0.1-0.6); Neutrophils Percent Auto 81.7 % (45.5-73.1); Platelet Count Result 417 k/mm3 (150-375); Red Blood Count 5.32 M/mm3 (4.2-5.4); Red Cell Distribution Width 13.8 % (11.5-14.5); White Blood Count 12.3 K/mm3 (4.5-10.0)
[2021-11-03 10:42] LABS: Alanine Aminotransferase 21 U/L (6-35); Albumin Level 5.2 g/dL (3.5-5.1); Alkaline Phosphatase 80 U/L (38-126); Anion Gap 14 mmol/L (8-16); Aspartate Amino Transferase 22 U/L (14-36); Bilirubin,Total 0.6 mg/dL (0.2-1.3); Blood Urea Nitrogen 9 mg/dL (7-17); Calcium 9.5 mg/dL (8.4-10.2); Carbon Dioxide 27 mmol/L (22-30); Chloride 99 mmol/L (98-107); Estimated CRCL calculation 148 ml/min; Estimated Glomerular Filt Rate > 60; Glucose 245 mg/dL (65-110); Lipase 27 U/L (23-300); Sodium 140 mmol/L (137-145)
[2021-11-03 10:54] LABS: Troponin I < 0.012 ng/mL (0.000-0.034)
[2021-11-03 10:55] LABS: INR 1.1; Partial Thromboplastin Time 25.5 SECONDS (22.3-36.8); Prothrombin Time 13.4 Seconds (11.1-14.7)
[2021-11-03] MEDS: FAMOTIDINE 20 MG/2 ML VIAL IV PUSH (11:45)
[2021-11-03] MEDS: METOCLOPRAMIDE HCL INJ 10 MG/2 ML VIAL IV PUSH (11:45)
[2021-11-03] MEDS: LACTATED RINGERS 1,000 ML 999 ML IV CONT (11:45)
[2021-11-03] MEDS: HALOPERIDOL LACTATE 5 MG/ML VIAL 2.5 MG IV PUSH (12:43)
--- NOTE | 2021-11-03 12:59 | ED.NAVMDI ---
HPI - Nausea/Vomiting/Diarrhea General Chief complaint: Chest Pain Stated complaint: GASTROPARESIS-->CHEST PAIN Time Seen by Provider: 11/03/21 10:16 History of Present Illness HPI Narrative: 31-year-old female with history of diabetes, gastroparesis states that she has been having nausea and vomiting for the last few days, unable to tolerate p.o., she has been taking Reglan at home and also Phenergan without any improvement in her symptoms. She states that she is having some epigastric discomfort that seems to radiate a little bit to her chest which are similar to her usual symptoms with gastroparesis. No fevers or chills. No dysuria. Related Data Home Medications Medication Instructions Recorded Confirmed metformin 500 mg tablet,extended 1,000 mg PO BID 11/21/20 09/18/21 release 24 hr insulin detemir U-100 100 unit/mL 20 unit subcut BID 01/31/21 09/18/21 (3 mL) subcutaneous pen (Levemir FlexTouch U-100 Insulin) Allergies Allergy/AdvReac Type Severity Reaction Status Date / Time No Known Allergies Allergy Unknown Verified 09/18/21 06:29 Review of Systems Review of Systems: CONST: No fever. HEENT: No sore throat C/V: Chest discomfort RESP: No dyspnea GI: Reports epigastric abdominal pain, nausea, vomiting : No dysuria. M/S: No joint pain. SKIN: No rash. NEURO: [No headache or focal numbness or weakness] PSYCH: [No depression] PMFSH Past Medical History Medical History DUB (dysfunctional uterine bleeding) Gastroparesis Missed at 14 weeks gestation. Approx two weeks ago Nausea and vomiting Obese hemorrhage Type 2 diabetes mellitus Surgical History Surgical History Delivery by section Family History Family History Mother Diabetes mellitus Father Diabetes mellitus Sibling Diabetes mellitus Social History Social History Social History: She lives at home with her and 4 children (3 biologic and her niece that she is guardian). Lifelong nonsmoker. Rare alcohol use. No drug use. She is a full code. She nominated her to be the individual would make medical decisions for her if she is unable. Smoking status: Never smoker Second hand tobacco smoke exposure: No Alcohol intake: never Substance use: never Substance use type: does not use Gender identity (if verbalized by the patient): Female Sexual Orientation (if Verbalized by the Patient): Straight or Heterosexual Spiritual care concerns: No Exam Narrative: EXAMINATION OF ORGAN SYSTEMS/BODY AREAS: Constitutional: Vital signs per nursing GENERAL: Actively retching HEAD: Normal with no signs of head trauma. EYES: EOMI, conjunctiva normal ENT: Hearing grossly intact LUNGS: Nonlabored breathing. Speaking full sentences. HEART: Mildly tachycardic ABD: [Soft], [nontender to palpation] EXT: Normal range of motion SKIN: [No rashes or lesions.] NEURO: [Alert and oriented x 3. No gross focal sensory or strength deficits.] PSYCH: Normal affect Course Vital Signs Vital signs: Vital Signs Temperature 96.9 F L 11/03/21 10:10 Pulse Rate 106 H 11/03/21 10:10 Respiratory Rate 26 H 11/03/21 10:10 Blood Pressure 132/85 11/03/21 10:10 Pulse Oximetry 98 11/03/21 10:10 Oxygen Delivery Room Air 11/03/21 10:10 Temperature 96.9 F L 11/03/21 10:10 Pulse Rate 106 H 11/03/21 10:10 Respiratory Rate 26 H 11/03/21 10:10 Blood Pressure 132/85 11/03/21 10:10 Pulse Oximetry 98 11/03/21 10:10 Oxygen Delivery Room Air 11/03/21 10:10 MDM - Nausea/Vomiting/Diarrhea MDM Narrative Medical decision making narrative: Electronic medical record was reviewed. Patient presented to the ED with complaint of epigastric discomfort and vomiting. Vitals notable for ta
== END 2021-11-03 13:27 | disposition home or self-care (01) ==
PROVIDERS: Emergency Provider Emergency Medicine; PCP Registered Nurse
DX: R11.2 Nausea with vomiting, unspecified (principal); E11.43 Type 2 diabetes mellitus with diabetic autonomic (poly)neuropathy; K31.84 Gastroparesis; E66.9 Obesity, unspecified; Z68.35 Body mass index [BMI] 35.0-35.9, adult; Z79.4 Long term (current) use of insulin; Z79.02 Long term (current) use of antithrombotics/antiplatelets; R10.13 Epigastric pain
CPT/HCPCS: 36415; 71046; 80053; 82948; 83690; 84484; 85025; 85610; 85730; 93005; 96361; 96374; 96375; 99284; J1630; J2765; J7120

== ENCOUNTER 2021-11-06 13:45 | Emergency (ER) | payer OTHER, SELFPAY ==
--- NOTE | ~2021-11-06 | US_ITS ---
EXAMINATION: US right upper quadrant DATE: 11/06/2021 14:40 INDICATION: Right upper quadrant pain TECHNIQUE: Multiple grayscale and Doppler ultrasound images of the abdomen were obtained. COMPARISON: 11/13/2020 FINDINGS: The head and body of the pancreas are normal. The pancreatic tail is obscured by bowel gas. The liver demonstrates increased echogenicity, heterogenous echotexture, and decreased through trans mission. No surface nodularity. Normal hepatopetal flow in the main portal vein. The gallbladder is n ormal with no abnormal wall thickening, pericholecystic fluid or stones. The normal common bile duct measures 5 mm. There was no sonographic Jackson sign. IMPRESSION: 1. Diffuse hepatic steatosis. Reviewed, dictated and finalized at location B.
[2021-11-06 13:47] VITALS: BP 167/89; PULSE 103; RESP 20; TEMP 36.7; O2SAT 100
--- NOTE | 2021-11-06 13:55 | ED.ABDPAIN ---
HPI - Abdominal Pain General Chief Complaint: Abdominal Pain Stated Complaint: N/v Time Seen by Provider: 11/06/21 13:48 History of Present Illness HPI narrative: Pt is a 31 y/o diabetic with gastroparesis presenting with epigastric abdominal pain with vomiting and some burning in her chest. Pt was seen in ER last week for same thing and haldol was effective in treating nausea. Pt denies fever or diarrhea. Pt denies black stools. Related Data Home Medications Medication Instructions Recorded Confirmed metformin 500 mg tablet,extended 1,000 mg PO BID 11/21/20 09/18/21 release 24 hr insulin detemir U-100 100 unit/mL 20 unit subcut BID 01/31/21 09/18/21 (3 mL) subcutaneous pen (Levemir FlexTouch U-100 Insulin) Allergies Allergy/AdvReac Type Severity Reaction Status Date / Time No Known Allergies Allergy Unknown Verified 11/06/21 14:43 Review of Systems Review of Systems: All systems reviewed & are unremarkable except as noted in HPI and below PMFSH Past Medical History Medical History DUB (dysfunctional uterine bleeding) Gastroparesis Missed at 14 weeks gestation. Approx two weeks ago Nausea and vomiting Obese hemorrhage Type 2 diabetes mellitus Surgical History Surgical History Delivery by section Family History Family History Mother Diabetes mellitus Father Diabetes mellitus Sibling Diabetes mellitus Social History Social History Social History: She lives at home with her and 4 children (3 biologic and her niece that she is guardian). Lifelong nonsmoker. Rare alcohol use. No drug use. She is a full code. She nominated her to be the individual would make medical decisions for her if she is unable. Smoking status: Never smoker Second hand tobacco smoke exposure: No Alcohol intake: never Substance use: never Substance use type: does not use Gender identity (if verbalized by the patient): Female Sexual Orientation (if Verbalized by the Patient): Straight or Heterosexual Spiritual care concerns: No Exam Const: General: healthy appearing and no acute distress Nutritional Appearance: well nourished and obese Orientation/consciousness: patient oriented x3 Limitations: no limitations HENMT: Head: normal to inspection Mouth: Yes Normal oral and palatal mucosa present Resp: Effort & Inspection: normal respiratory effort Auscultation: clear to auscultation bilaterally Cardio: Rate: regular rate Rhythm: regular rhythm GI: GI Palp: Yes Soft to palpation and Yes Tenderness to palpation present (GI) (epigastrum) Auscultation: normal bowel sounds Skin: General skin exam: normal color Rashes: no rashes Neuro: General: patient oriented x3, moves all extremities, no meningeal signs and no focal motor deficits Cranial nerves: Yes Nystagmus not present Speech: normal speech Extrem: General: normal to inspection and no clubbing, cyanosis or edema Psych: Mental Status: mental status grossly normal Affect: normal affect Attitude: cooperative Course Vital Signs Vital signs: Vital Signs Temperature 98.0 F 11/06/21 13:47 Pulse Rate 103 H 11/06/21 13:47 Respiratory Rate 20 11/06/21 13:47 Blood Pressure 167/89 H 11/06/21 13:47 Pulse Oximetry 100 11/06/21 13:47 Oxygen Delivery Room Air 11/06/21 13:47 Temperature 97.9 F 11/06/21 14:43 Pulse Rate 93 11/06/21 15:51 Respiratory Rate 20 11/06/21 15:51 Blood Pressure 132/69 11/06/21 15:51 Pulse Oximetry 100 11/06/21 15:51 Oxygen Delivery Room Air 11/06/21 13:47 MDM - Abdominal Pain Lab Data Result diagrams: 11/06/21 14:00 11/06/21 14:00 Labs: Lab Results 11/06/21 11/06/21 Range/Units 14:00 14:00
[2021-11-06] MEDS: HALOPERIDOL LACTATE 5 MG/ML VIAL IV PUSH (13:58)
[2021-11-06] MEDS: PANTOPRAZOLE SODIUM IV 40 MG VIAL IV PUSH (13:58)
[2021-11-06] MEDS: SODIUM CHLORIDE 0.9% IV 1,000 ML 999 ML IV CONT (13:58)
[2021-11-06 14:08] LABS: Basophils Absolute Auto 0.1 K/mm3 (0.0-0.1); Basophils Percent Auto 0.4 % (0.2-1.2); Eosinophils Percent Auto 0.1 % (0-4.4); Hematocrit 45.6 % (37.0-47.0); Hemoglobin 14.4 g/dL (12.0-15.0); Immature Granulocyte Absolute 0.06 K/mm3 (0.00-0.031); Immature Granulocyte Percent A 0.4 % (0-0.5); Lymphocytes Absolute Auto 5.14 K/mm3 (0.9-3.2); Mean Corpuscular HGB Conc 31.6 g/dl (32-36); Mean Corpuscular Hemoglobin 25.2 pg (26-34); Mean Corpuscular Volume 79.7 fl (80-100); Mean Platelet Volume 10.3 fl (7.4-10.4); Monocytes Absolute Auto 0.9 K/mm3 (0.1-0.6); Monocytes Percent Auto 5.7 % (2.6-8.5); Neutrophils Absolute Auto 9.4 K/mm3 (1.3-6.7); Neutrophils Percent Auto 60.4 % (45.5-73.1); Platelet Count Result 497 k/mm3 (150-375); Red Blood Count 5.72 M/mm3 (4.2-5.4); Red Cell Distribution Width 13.8 % (11.5-14.5); White Blood Count 15.6 K/mm3 (4.5-10.0)
[2021-11-06 14:22] LABS: Alanine Aminotransferase 27 U/L (6-35); Albumin Level 5.2 g/dL (3.5-5.1); Alkaline Phosphatase 79 U/L (38-126); Anion Gap 18 mmol/L (8-16); Aspartate Amino Transferase 24 U/L (14-36); Bilirubin,Total 0.9 mg/dL (0.2-1.3); Blood Urea Nitrogen 11 mg/dL (7-17); Calcium 10.1 mg/dL (8.4-10.2); Carbon Dioxide 29 mmol/L (22-30); Chloride 93 mmol/L (98-107); Estimated Glomerular Filt Rate > 60; Glucose 202 mg/dL (65-110); Lipase 44 U/L (23-300); Potassium 3.5 mmol/L (3.4-5.0); Sodium 140 mmol/L (137-145)
[2021-11-06 14:43] VITALS: BP 140/80; PULSE 89; RESP 14; TEMP 36.6; O2SAT 98
[2021-11-06 15:51] VITALS: BP 132/69; PULSE 93; RESP 20; O2SAT 100
== END 2021-11-06 15:51 | disposition home or self-care (01) ==
PROVIDERS: Emergency Provider Emergency Medicine; PCP Registered Nurse
DX: K31.84 Gastroparesis (principal); R11.2 Nausea with vomiting, unspecified; E11.9 Type 2 diabetes mellitus without complications; Z79.4 Long term (current) use of insulin; Z79.84 Long term (current) use of oral hypoglycemic drugs
CPT/HCPCS: 36415; 76705; 80053; 81025; 83690; 85025; 96361; 96374; 96375; 99284; C9113; J1630; J7030

== ENCOUNTER 2021-11-08 19:47 | Emergency (ER) | payer OTHER, SELFPAY ==
[2021-11-08 20:25] VITALS: BP 144/75; PULSE 93; RESP 18; TEMP 36.1; O2SAT 100
--- NOTE | 2021-11-08 20:27 | ECG_ITS ---
Measurements Intervals [place] Rate: 95 P: 27 MA: 154 QRS: 18 QRSD: 77 T: 61 QT: 348 QTc: 439 Interpretive Statements SINUS RHYTHM MINIMAL Q WAVES- INFERIOR LEADS NONSPECIFIC ST & T-WAVE ABNORMALITY- ANTEROLAT/HIGH LAT LEADS BORDERLINE ECG Electronically Signed On 11-08-2021 20:37:26 CDT by Alok Barros D.O.
[2021-11-08 22:15] VITALS: BP 167/93; PULSE 87; RESP 20; O2SAT 99
--- NOTE | 2021-11-08 22:21 | ED.NAVMDI ---
HPI - Nausea/Vomiting/Diarrhea General Chief complaint: Nausea/Vomiting/Diarrhea Stated complaint: throwing up Time Seen by Provider: 11/08/21 22:13 History of Present Illness HPI Narrative: Patient is a 31-year-old female complaining of nausea and vomiting accompanied by substernal, epigastric discomfort admitted by vomiting x1 week. She describes her vomitus as nonbilious nonbloody. This is her third ER visit in a week for the same complaint, diagnosed with gastroparesis Related Data Home Medications Medication Instructions Recorded Confirmed metformin 500 mg tablet,extended 1,000 mg PO BID 11/21/20 09/18/21 release 24 hr insulin detemir U-100 100 unit/mL 20 unit subcut BID 01/31/21 09/18/21 (3 mL) subcutaneous pen (Levemir FlexTouch U-100 Insulin) Allergies Allergy/AdvReac Type Severity Reaction Status Date / Time No Known Allergies Allergy Unknown Verified 11/06/21 14:43 Review of Systems Review of Systems: All systems reviewed & are unremarkable except as noted in HPI and below Constitutional: Constitutional: Denies body ache(s), Denies chills, Denies excessive sweating, Denies fatigue, Denies fever(s), Denies headache(s), Denies lethargy, Denies malaise, Denies weakness and Denies weight loss Eyes: Eyes: Denies blurry vision, Denies change in vision and Denies loss of vision ENT: Denies dizziness, Denies ear discharge, Denies headache(s), Denies lip swelling, Denies epistaxis, Denies nasal congestion, Denies neck pain, Denies throat swelling and Denies tongue swelling Cardiovascular: Cardiovascular: Denies chest pain, Denies chest pain at rest, Denies chest pain with activity, Denies diaphoresis, Denies rapid heart rate, Denies edema, Denies irregular heart rhythm, Denies lightheadedness, Denies palpitations, Denies dyspnea and Denies dyspnea on exertion Respiratory: Respiratory: Denies chest congestion, Denies cough, Denies hemoptysis, Denies dyspnea and Denies dyspnea on exertion Gastrointestinal: Gastrointestinal: Denies abdominal pain, Denies melena, Denies hematochezia, Denies diarrhea and Denies hematemesis Musculoskeletal: Musculoskeletal: Denies abnormal gait, Denies deformity, Denies joint swelling, Denies limited range of motion, Denies neck pain and Denies numbness Neurologic: Denies Abnormal speech present, Denies abnormal gait, Denies confusion, Denies dizziness, Denies headache(s), Denies focal weakness, Denies loss of vision, Denies numbness, Denies Other visual disturbances, Denies Sensory deficit (Neuro) and Denies weakness Psychiatric: Psychiatric: Denies confusion, Denies depression, Denies auditory hallucinations, Denies homicidal ideation and Denies suicidal ideation Endocrine: Endocrine: Denies cold intolerance, Denies excessive sweating, Denies fatigue, Denies heat intolerance and Denies palpitations Hematologic/Lymphatic: Hematologic/Lymphatic: Denies easy bleeding and Denies easy bruising Allergic/Immunologic: Allergic/Immunologic: Denies lip swelling, Denies throat swelling and Denies tongue swelling PMFSH Past Medical History Medical History DUB (dysfunctional uterine bleeding) Gastroparesis Missed at 14 weeks gestation. Approx two weeks ago Nausea and vomiting Obese hemorrhage Type 2 diabetes mellitus Surgical History Surgical History Delivery by section Family History Family History Mother Diabetes mellitus Father Diabetes mellitus Sibling Diabetes mellitus Social History Social History Social History: She lives at home with her and 4 children (3 biologic and her niece that she is guardian). Lifelong nonsmoker. Rare alcohol use. No drug use. She is a full code. She nominated her to be the indiv
[2021-11-08 22:28] LABS: Basophils Percent Auto 0.2 % (0.2-1.2); Eosinophils Percent Auto 0.1 % (0-4.4); Hematocrit 43.7 % (37.0-47.0); Hemoglobin 13.9 g/dL (12.0-15.0); Immature Granulocyte Absolute 0.03 K/mm3 (0.00-0.031); Immature Granulocyte Percent A 0.3 % (0-0.5); Lymphocytes Absolute Auto 1.69 K/mm3 (0.9-3.2); Lymphocytes Percent Auto 18.9 % (18.3-44.2); Mean Corpuscular HGB Conc 31.8 g/dl (32-36); Mean Corpuscular Hemoglobin 25.4 pg (26-34); Mean Corpuscular Volume 79.7 fl (80-100); Mean Platelet Volume 10.6 fl (7.4-10.4); Monocytes Absolute Auto 0.3 K/mm3 (0.1-0.6); Monocytes Percent Auto 3.2 % (2.6-8.5); Neutrophils Absolute Auto 6.9 K/mm3 (1.3-6.7); Neutrophils Percent Auto 77.3 % (45.5-73.1); Platelet Count Result 392 k/mm3 (150-375); Red Blood Count 5.48 M/mm3 (4.2-5.4); Red Cell Distribution Width 13.2 % (11.5-14.5)
[2021-11-08 22:29] LABS: Appearance Urine Clear (Clear); Bilirubin Urine 1+ (Negative); Blood Urine 2+ (Negative); Color Urine Yellow (Yellow); Glucose Urine UA Trace mg/dL (Negative); Ketones Urine 4+ mg/dL (Negative); Leukocyte Esterase Ur Negative LEU/UL (Negative); Nitrate Urine Negative (Negative); Protein Urine 2+ mg/dL (Negative); Specific Grav Ur >= 1.030 (1.001-1.035); Urobilinogen Urine 0.2 mg/dL (<2.0)
[2021-11-08 22:34] LABS: Bacteria Urine Trace /hpf; Mucus Urine Few /lpf; RBC Urine 21-50 /hpf (0-2); Squamous Epithelial Cell Urine Moderate /hpf (Few)
[2021-11-08 22:35] LABS: Add Urine Microscopic? YES
[2021-11-08 22:37] LABS: Alanine Aminotransferase 26 U/L (6-35); Alkaline Phosphatase 76 U/L (38-126); Anion Gap 15 mmol/L (8-16); Aspartate Amino Transferase 23 U/L (14-36); Bilirubin,Total 0.8 mg/dL (0.2-1.3); Blood Urea Nitrogen 9 mg/dL (7-17); Calcium 9.2 mg/dL (8.4-10.2); Carbon Dioxide 25 mmol/L (22-30); Chloride 97 mmol/L (98-107); Estimated CRCL calculation 130 ml/min; Estimated Glomerular Filt Rate > 60; Glucose 261 mg/dL (65-110); Lipase 52 U/L (23-300); Potassium 3.8 mmol/L (3.4-5.0); Sodium 137 mmol/L (137-145)
[2021-11-08] MEDS: SODIUM CHLORIDE 0.9% IV 1,000 ML 999 ML IV CONT (22:39)
[2021-11-08] MEDS: ONDANSETRON INJ 4 MG/2 ML VIAL IV PUSH (22:39)
[2021-11-08 23:16] LABS: Troponin I < 0.012 ng/mL (0.000-0.034)
--- NOTE | 2021-11-09 00:15 | PC.NURSE ---
Attempt to d/c pt and this nurse went to assess her and noted emesis x1 MD notified and gave new orders see MAR
[2021-11-09 00:36] VITALS: BP 166/97; PULSE 119; RESP 20; O2SAT 100
== END 2021-11-09 00:40 | disposition home or self-care (01) ==
PROVIDERS: Nurse Practitioner Family; Emergency Provider Emergency Medicine; PCP Registered Nurse
DX: R11.2 Nausea with vomiting, unspecified (principal); E11.43 Type 2 diabetes mellitus with diabetic autonomic (poly)neuropathy; E66.9 Obesity, unspecified; Z68.37 Body mass index [BMI] 37.0-37.9, adult; Z79.4 Long term (current) use of insulin; Z79.84 Long term (current) use of oral hypoglycemic drugs; R94.31 Abnormal electrocardiogram [ECG] [EKG]
CPT/HCPCS: 36415; 80053; 81001; 81025; 83690; 84484; 85025; 93005; 96361; 96374; 99284; J2405; J7030

== ENCOUNTER 2022-01-21 09:19 | Outpatient (CLI) | payer OTHER, SELFPAY ==
--- NOTE | 2022-01-21 09:31 | ECG_ITS ---
Measurements Intervals [place] Rate: 88 P: 23 MS: 170 QRS: 31 QRSD: 90 T: 8 QT: 362 QTc: 439 Interpretive Statements SINUS RHYTHM BASELINE ARTIFACT PRESENT COMPARED TO ECG 11/08/2021 20:30:12 NO SIGNIFICANT CHANGES Electronically Signed On 01-22-2022 14:27:55 CDT by Abbe Martinez M.D.
[2022-01-21 10:02] LABS: Anion Gap 16 mmol/L (8-16); Blood Urea Nitrogen 8 mg/dL (7-17); Calcium 9.2 mg/dL (8.4-10.2); Carbon Dioxide 26 mmol/L (22-30); Chloride 97 mmol/L (98-107); Estimated Glomerular Filt Rate > 60; Glucose 287 mg/dL (65-110); Potassium 4.4 mmol/L (3.4-5.0); Sodium 139 mmol/L (137-145)
== END 2022-01-21 09:20 | disposition home or self-care (01) ==
LOC: ANHSURGERY 09:28
PROVIDERS: Anesthesiology; PCP Registered Nurse; Visit Provider Obstetrics & Gynecology
DX: E11.9 Type 2 diabetes mellitus without complications (principal); Z01.818 Encounter for other preprocedural examination
CPT/HCPCS: 36415; 80048; 93005

== ENCOUNTER 2022-01-27 02:43 | Day surgery (SDC) | payer OTHER, SELFPAY ==
[2022-01-14 11:08] VITALS: BMI 37.0
--- NOTE | 2022-01-14 11:13 | PC.NURSE ---
Report to the Outpatient Waiting Room, entrance under the green pavilion located off [facility], at time ___06:00am____ on date __01/27/22 . OR Time: ____07:30am____. Time changes happen often and if your time is changed the preop area will call you the afternoon before. - You and your visitor will be asked to self-screen and do not enter if you have any COVID symptoms. - Only one visitor and NO children visitors are allowed at this time. - The patient visitor is requested to leave or wait in car when not with patient due to restrictions. - A mask is required within the hospital. Patients may have clear liquids (water, carbonated beverages, clear teas, apple juice) until 3 hours prior to surgery with a maximum of 20 ounces. - No food from midnight until time of surgery - NOTHING TO DRINK AFTER 04:30AM Take the following medications with a SIP of water the morning of surgery: N/A Medications to discontinue per physician N/A Date to take last dose____N/A Please no make-up, nail macedonian, hairspray, perfume, deodorant, or body powder the day of surgery. No jewelry (including any body piercings) or valuables the day of surgery, leave them at home. Please take a shower or bath the night before, or the morning of, surgery with an antibacterial soap. Wear comfortable, loose fitting clothing. - Jewelry must be removed prior to entering the operating room. Rings and piercings that are not removed may be cut off. - The hospital will not accept responsibility for valuables. - Please leave all valuables, including medications, at home the day of surgery. If you are going home after surgery, a licensed hazardous materials driver must drive you home. - NO public transportation without another adult. - We recommend that an adult stay with you for 24 hours following discharge. - We also recommend that you do not drive, make important decision, drink alcoholic beverages, or take any drugs that were not prescribed by your health care provider for at least 24 hours after your discharge time. Follow any additional instructions given to you from your surgeon. If you or anyone in your household have experienced Covid symptoms in the past week, please notify your surgeon or the nurse liaison at the phone number below for possible testing. Telephone instructions given to ___PATIENT__and asked if any additional questions and then verbalized understanding. Patient advised to call surgeon office or pre surgery nurse liaison [phone] if any additional questions.
[2022-01-27] VITALS (9 sets, daily range): BP systolic 113–126; BP diastolic 60–78; PULSE 64–81; RESP 16–25; TEMP 36.2–36.8; O2SAT 96–100
[2022-01-27] MEDS: KETOROLAC 15 MG/ML VIAL (*BKC) IV PUSH (06:25)
[2022-01-27] MEDS: ACETAMINOPHEN 500 MG TABLET 1000 MG PO (06:25)
[2022-01-27 06:39] LABS: Glucose Point of Care 198 mg/dl (65-105)
--- NOTE | 2022-01-27 06:39 | WPDANESEPPF ---
Anes - Initial Pre Proc Eval Procedure: Operation Date: 01/27/22 07:30 Proposed Procedures p Bilateral Laparoscopic Salpingectomy - Lluvia Alcantar MD Date/Time: 01/27/22 06:39 Surgeon: Lluvia Alcantar MD Pre Op Diagnosis: desires sterilization Patient Data Age: 31 Gender: F Height: 1.63 m Weight: 98.4 kg Allergies Allergy/AdvReac Type Severity Reaction Status Date / Time No Known Allergies Allergy Unknown Verified 01/27/22 06:29 Home Medications Medication Instructions Recorded Confirmed Type metformin 500 mg tablet,extended 1,000 mg PO BID 11/21/20 01/14/22 History release 24 hr ondansetron 4 mg disintegrating 8 mg PO Q8H PRN nausea and 06/05/21 01/14/22 Rx tablet vomiting #30 tabs prochlorperazine 25 mg rectal 25 mg RECTAL Q12H PRN nausea and 06/05/21 01/14/22 Rx suppository (Compazine) vomiting #12 ea lansoprazole 30 mg capsule,delayed 30 mg PO DAILY #20 caps 11/06/21 01/14/22 Rx release (Prevacid) metoclopramide HCl 5 mg tablet See Rx Instructions .Route 12/30/21 01/14/22 Rx .COMPLEX #180 tabs atorvastatin 10 mg tablet 10 mg PO HS 01/14/22 01/14/22 History dapagliflozin 5 mg tablet (Farxiga) 5 mg PO DAILY 01/14/22 01/14/22 History insulin glargine 100 unit/mL (3 38 unit subcut HS 01/14/22 01/14/22 History mL) subcutaneous pen (Lantus Solostar U-100 Insulin) lisinopril 10 mg tablet 10 mg PO DAILY 01/14/22 01/14/22 History norethindrone 1 mg-ethinyl 1 tablet PO DAILY 01/14/22 01/14/22 History estradiol 35 mcg tablet (Pirmella) Laboratory Tests 01/27/22 06:36 POC Capillary Glucose Pending Patient hx anesthesia problems: none Family hx anesthesia problems: none Results Review: All pre-operative results and documents have been reviewed as part of the pre-operative evaluation. [facility] Past Medical History Medical History (Updated 01/27/22 @ 06:40 by Quinton Stapleton DO) DUB (dysfunctional uterine bleeding) Gastroparesis GERD (gastroesophageal reflux disease) Hyperlipidemia Hypertension Missed at 14 weeks gestation. Approx two weeks ago Nausea and vomiting Obese hemorrhage Type 2 diabetes mellitus Surgical History Surgical History Delivery by section Family History Family History Mother Diabetes mellitus Father Diabetes mellitus Sibling Diabetes mellitus Social History Social History Social History: She lives at home with her and 4 children (3 biologic and her niece that she is guardian). Lifelong nonsmoker. Rare alcohol use. No drug use. She is a full code. She nominated her to be the individual would make medical decisions for her if she is unable. Smoking status: Never smoker Second hand tobacco smoke exposure: No Alcohol intake: never Substance use: never Substance use type: does not use Living arrangements: with family Gender identity (if verbalized by the patient): Female Sexual Orientation (if Verbalized by the Patient): Straight or Heterosexual Spiritual care concerns: No Anes - Eval Final PreProcedure Day of Procedure 01/27/22 06:39 Patient weight: obese Heart: regular rate and rhythm Lungs: clear to auscultation Airway: Mallampati scale class II Neurological: alert and oriented Last oral intake: >/= 8 hours ASA classification: III Emergent: no Anesthetic plan: proceed Anesthesia type and monitoring: general ETT and standard monitoring Results Review: All pre-operative results and documents have been reviewed as part of the pre-operative evaluation. Informed Consent: The patient's anesthetic plan and its attendant risks and benefits were discussed with the patient/family/POA. Questions were solicited and answers provided to the satisfaction of the patient/family/POA.
[2022-01-27] MEDS: LACTATED RINGERS 1,000 ML 30 ML IV CONT ×2 (06:45→08:33)
--- NOTE | 2022-01-27 07:23 | PM.IMHP ---
H&P: HPI History of Present Illness Date/Time: 01/27/22 07:23 Chief Complaint: salpingectomy Narrative: Kelly is a who desires permanent sterilization. She has had 2CS. she also has HTn and anxiety and DM2, improve dcontrol over last few months with last A1C 7, but still a lot of elevated glucoses. [facility] Past Medical History Medical History (Updated 01/27/22 @ 07:25 by Lluvia Alcantar MD) DUB (dysfunctional uterine bleeding) Gastroparesis GERD (gastroesophageal reflux disease) Hyperlipidemia Hypertension Missed at 14 weeks gestation. Approx two weeks ago Nausea and vomiting Obese hemorrhage Type 2 diabetes mellitus Surgical History Surgical History Delivery by section Family History Family History Mother Diabetes mellitus Father Diabetes mellitus Sibling Diabetes mellitus Social History Social History Social History: She lives at home with her and 4 children (3 biologic and her niece that she is guardian). Lifelong nonsmoker. Rare alcohol use. No drug use. She is a full code. She nominated her to be the individual would make medical decisions for her if she is unable. Smoking status: Never smoker Second hand tobacco smoke exposure: No Alcohol intake: never Substance use: never Substance use type: does not use Living arrangements: with family Gender identity (if verbalized by the patient): Female Sexual Orientation (if Verbalized by the Patient): Straight or Heterosexual Spiritual care concerns: No Meds Home Medications and Allergies Home Medications Medication Instructions Recorded Confirmed Type metformin 500 mg tablet,extended 1,000 mg PO BID 11/21/20 01/14/22 History release 24 hr ondansetron 4 mg disintegrating 8 mg PO Q8H PRN nausea and 06/05/21 01/14/22 Rx tablet vomiting #30 tabs prochlorperazine 25 mg rectal 25 mg RECTAL Q12H PRN nausea and 06/05/21 01/14/22 Rx suppository (Compazine) vomiting #12 ea lansoprazole 30 mg capsule,delayed 30 mg PO DAILY #20 caps 11/06/21 01/14/22 Rx release (Prevacid) metoclopramide HCl 5 mg tablet See Rx Instructions .Route 12/30/21 01/14/22 Rx .COMPLEX #180 tabs atorvastatin 10 mg tablet 10 mg PO HS 01/14/22 01/14/22 History dapagliflozin 5 mg tablet (Farxiga) 5 mg PO DAILY 01/14/22 01/14/22 History insulin glargine 100 unit/mL (3 38 unit subcut HS 01/14/22 01/14/22 History mL) subcutaneous pen (Lantus Solostar U-100 Insulin) lisinopril 10 mg tablet 10 mg PO DAILY 01/14/22 01/14/22 History norethindrone 1 mg-ethinyl 1 tablet PO DAILY 01/14/22 01/14/22 History estradiol 35 mcg tablet (Pirmella) Allergies Allergy/AdvReac Type Severity Reaction Status Date / Time No Known Allergies Allergy Unknown Verified 01/27/22 06:29 Vital Signs Vital Signs - 24 hr 01/27/22 06:40 Temperature 98.3 F Pulse Rate 81 Respiratory Rate 16 Blood Pressure 116/62 Pulse Oximetry 100 Oxygen Delivery Room Air Assessment and Plan Assessment and plan (1) Admission for sterilization: Code(s): Z30.2 - Encounter for sterilization Status: Acute Plan Discussed RBA and consernted for LSC bilateral salpingectomy. Questions answered. will proceed.
--- NOTE | 2022-01-27 07:25 | WPDHPUPDATE1 ---
History and Physical Update Update Date/Time: 01/27/22 07:25 History and Physical has been reviewed, including an updated exam of the patient. There are NO changes in the patient's condition. Risks, benefits, and alternatives have been discussed and questions answered. Patient agrees to proceed with procedure.
[2022-01-27] MEDS: ceFAZolin SODIUM 1 GM VIAL 2 GM IV PUSH (07:46)
[2022-01-27] MEDS: BUPIVACAINE/EPINEPHRINE 0.25% 50 ML VIAL 30 ML INFILTRATE (08:02)
--- NOTE | 2022-01-27 08:23 | W.PM.PROC2 ---
Procedure Note - Detailed Date of Procedure 01/27/22 Pre-op Diagnosis desires sterilization Post-op Diagnosis Same Procedure Performed Laparoscopic Bilateral Salpingectomy Surgeon Lluvia Alcantar MD Anesthesia General Indications undesired future fertility Findings normal uterus, tubes, and ovaries Description of Procedure The patient was taken to the OR and placed in dorthal lithotomy in [facility]. She received general anesthesia. A speculum was placed and the cervix grasped with a single tooth tenaculum and an acorn uterine manipulator placed easily. A mistry catheter had previously been placed. She had received preoperative antibiotics. A 5mm subumbilical skin incision was made and using direct visualization, the trocar was inserted intraperitoneally. The abdomen was insufflated and the pelvis inspected with the above findings. Bilateral 5mm incisions were made and trocars were placed under direct visualization. The right tube was grasped and elevated and using the Ligasure device, the tube was sequentially cauterized and ligated and removed through the trocar and sent to pathology. Similarly, on the left, the tube was removed using the Ligasure device. Hemostasis was noted. The upper abdomen was inspected and noted to be normal. The trocars were removed and the Co2 was removed from the abdomen. The skin was closed with 4-0 vicryl and steri strips. The patient tolerated the procedure well and was taken to the recovery room in stable condition. EBL 10cc. Estimated Blood Loss 10 IV Fluids 1,200 Drains No Packing No Pathology Yes Complications No immediate complications Condition Stable Disposition Same day
[2022-01-27 08:44] LABS: Glucose Point of Care 200 mg/dl (65-105)
[2022-01-27] MEDS: diphenhydrAMINE HCl INJ 50 MG/ML VIAL 25 MG IV PUSH (09:18)
[2022-01-27] MEDS: SCOPOLAMINE 1.5 MG PATCH TRANSDERM (09:18)
[2022-01-27] MEDS: oxyCODONE HCL (*CRX) 5 MG TAB IR PO (10:02)
== END 2022-01-27 11:00 | disposition home or self-care (01) ==
PROVIDERS: PCP Registered Nurse; Visit Provider Obstetrics & Gynecology
PROC: (CPT 49320; principal; 2022-01-27 07:30)
DX: Z30.2 Encounter for sterilization (principal); N83.8 Other noninflammatory disorders of ovary, fallopian tube and broad ligament; I10 Essential (primary) hypertension; E78.5 Hyperlipidemia, unspecified; K31.84 Gastroparesis; E11.9 Type 2 diabetes mellitus without complications; E66.9 Obesity, unspecified; Z68.37 Body mass index [BMI] 37.0-37.9, adult; K21.9 Gastro-esophageal reflux disease without esophagitis; Z79.84 Long term (current) use of oral hypoglycemic drugs; Z79.4 Long term (current) use of insulin
CPT/HCPCS: 58661; 36415; 80048; 82948; 88302; 93005; A9270; J0690; J1100; J1200; J1885; J2250; J2405; J2704; J2710; J3010; J7030; J7120

== ENCOUNTER 2024-11-18 02:32 | Day surgery (SDC) | payer BC, MEDICAID, SELFPAY ==
[2024-07-18 10:32] VITALS: BMI 37.3
--- OUTSIDE RECORDS SUMMARY | 2024-07-27 00:38 | XMS_ITS | Encounter Summary ---
Author Organization [facility] Address [address] [place] [address] Care Team Providers Care Electronic Equipment Set Up Operator Name Role Phone Renetta Owen GUIDE DOMESTIC TOUR-CONSULTING PSYCHIATRIST Primary Care Provider Reason for Visit * Reason Comments Refill Request Encounter Details Date Type Department Care Team (Late st Contact Info) Description 09/28/2020 Refill [facility] [address] [place] [id number] [place] [address] [place] [address] [phone] Refill Request Social History Tobacco Use Types Packs/Day Years Used Date Smoking Tobacco: Never Smokeless Tobacco: Never Alcohol Use Standard Drinks/Week Comments No 0 (1 standard drink = 0.6 oz pur e alcohol) Comments No Sex and Gender Information Value Date Recorded Sex Assigned at Not on file 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 Answer Date of Assessment Author No 01/03/2015 5:49 PM Alex Merino RN * Is person blind or have serious difficulty seeing? Answer Date of Assessment Author No 01/03/2015 5:49 PM Alex Merino RN * Does person have serious difficulty walking/climbing stairs? Answer Date of Assessment Author No 01/03/2015 5:49 PM Alex Merino RN * Does person have difficulty dressing/bathing? Answer Date of Assessment Author No 01/03/2015 5:49 PM Alex Merino RN * Does person have difficulty doing errands alone? Answer Date of Assessment Author No 01/03/2015 5:49 PM Alex Merino RN documented as of this encounter Mental Status * Does person have difficulty concentrating/remembering/making decisions? Answer Entry Date Author No 01/03/2015 5:49 PM Alex Merino RN documented in this encounter Plan of Treatment Not on file documented as of this encounter Visit Diagnoses Not on filedocumented in this encounter Care Teams Electronic Equipment Set Up Operator Relationship Specialty Start Date End Date Renetta Owen, ANGELIA-CONSULTING PSYCHIATRIST [address] [place] [id number] PCP - General 11/19/20 documented as of this encounter
--- OUTSIDE RECORDS SUMMARY | 2024-07-27 00:38 | XMS_ITS | Referral Summary ---
Author Organization [facility] Address [address] [place] [id number] Care Team Providers Care Reservations Manager Name Role Phone Renetta Owen Primary Care Provider + Lluvia Alcantar MD Unavailable [phone] Allergies No known active allergies Medications aspirin 81 mg chewable tablet Take 162 mg by mouth daily Active blood glucose diagnostic (Advanced Gluc Meter Test Strip) strip Use to test blood sugars 3 times daily for diabetes. 07/03/19 21 Active docusate sodium (COLACE) 100 mg capsule Take 100 mg by mouth 2 (two) times a day 01/08/20 15 Active doxycycline (doxycycline hyclate) 100 mg capsule doxycycline hyclate 100 mg capsule TAKE 1 CAPSULE BY MOUTH TWICE DAILY Active famotidine (PEPCID) 20 mg tablet famotidine 20 mg tablet TAKE 2 TABLETS BY MOUTH TWICE DAILY FOR 4 DAYS THEN 1 ONCE DAILY THEREAFTER 10/26/19 21 Active glucagon (glucagon) 1 mg kit Glucagon Emergency Kit 1 mg solution for injection USE DIRECTED 06/21/19 15 Active insulin glargine (LANTUS) 100 unit/mL (3 mL) pen for injection Lantus Solostar U-100 Insulin 100 unit/mL (3 mL) subcutaneous pen INJECT 15 UNITS SUBCUTANEOUSLY NIGHTLY AT BEDTIME 12/04/19 21 Active metFORMIN XR (GLUCOPHAGE XR) 500 mg 24 hr tablet metformin ER 500 mg tablet,extended release 24 hr TAKE 1 TABLET BY MOUTH TWICE DAILY 12/04/19 21 Active metoclopramide (REGLAN) 10 mg tablet Take 10 mg by mouth daily 11/18/19 21 Active omeprazole (PriLOSEC) 40 mg capsule omeprazole 40 mg capsule,delayed release TAKE 1 CAPSULE BY MOUTH ONCE DAILY Active sucralfate (CARAFATE) 1 gram tablet Take 1 g by mouth 4 (four) times a day 10/26/19 21 Active prochlorperazine (COMPAZINE) 10 mg tablet prochlorperazine maleate 10 mg tablet TAKE 1 TABLET BY MOUTH EVERY 8 HOURS NEEDED FOR NAUSEA AND FOR VOMITING Active TRUEplus Pen Needle 32 gauge x needle USE 1 PEN NEEDLE TWICE DAILY 01/04/20 21 Active ondansetron ODT (ZOFRAN-ODT) 8 mg disintegrating tablet ondansetron 8 mg disintegrating tablet DISSOLVE 1 TABLET IN MOUTH TWICE DAILY Active Active Problems Problem Noted Date Diagnosed Date History of section 01/14/2021 Gestational trophoblastic disease 01/02/2021 Diabetes mellitus 09/17/2020 BMI 35.0-35.9,adult 07/02/2020 Essential hypertension 06/28/2020 Social History Tobacco Use Types Packs/Day Years Used Date Smoking Tobacco: Never Smokeless Tobacco: Never Personal Safety Answer Date Recorded Getting School Help Needed Not on file 06/12 Comments No Sex and Gender Information Value Date Recorded Sex Assigned at Not on file 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 Gender Identity Not on file Sexual Orientation Not on file Last Filed Vital Signs Vital Sign Reading Time Taken Comments Blood Pressure 113/74 01/14/2021 9:11 AM CDT Pulse 85 01/14/2021 9:11 AM CDT Temperature 37 C (98.6 F) 01/14/2021 9:11 AM CDT Respiratory Rate 16 01/14/2021 9:11 AM CDT Oxygen Saturation 99% 01/14/2021 9:11 AM CDT Inhaled Oxygen Concentration - - Weight 90.1 kg (198 lb 11.2 oz) 01/14/2021 9:11 AM CDT Height 165.1 cm (5' 5) 01/14/2021 9:11 AM CDT Body Mass Index 33.07 01/14/2021 9:11 AM CDT Plan of Treatment Not on file [facility] Care Teams Reservations Manager Relationship Specialty Start Date End Date Renetta Owen PA [address] [place] [id number] PCP - General Nurse Practitioner 01/02/21 Lluvia Alcantar MD [address] [place] [id number] Referring Physician Obstetrics and Gynecology 01/02/21
--- OUTSIDE RECORDS SUMMARY | 2024-07-27 00:38 | XMS_ITS | Clinical Summary ---
Author Organization [facility] new test company Address [address] [facility] [place] [address] Care Team Providers Care Fire Patroller Name Role Phone Renetta Owen RECORD LABEL INTERN-BUSINESS CONTINUITY SPECIALIST Primary Care Provider Source Comments [facility] new test company,non-owned Affiliates and Associated Physician Practices is amultiple site organization consisting of ambulatory clinics and hospital sitesin [place], [place], [place] and [place]. This disclosure is being madepursuant to the Care Everywhere program and may not contain all information available regarding this patient. Last updated 18.[employer] new test company Allergies No known active allergies Medications * Be aware that medications may not be up to date on this document. Alwaysverify current medications with the patient. One Touch Delica Lancets For testing 6-8 times per day. Use one fore each test. 200 Each 1 5 Active blood glucose (ONETOUCH ULTRA TEST STRIPS) test strip For glucose monitoring. Test before and 1 hour after each meal, bedtime, and 2-3 am daily. 200 Strip 1 5 Active glucagon (GLUCAGON EMERGENCY) injection Use as directed for emergency if needed. 1 mg 0 5 Active metFORMIN (GLUCOPHAGE) 500 MG tablet Take two tablets with breakfast and two tablets with dinner. 120 Tab 5 5 Active Additional Information Patient taking differently: 1,000 mg, Take 1 tab with breakfast and 1 tablet with dinner., Indications: Type 2 Diabetes Mellitus, Informant: Patient, Reported on 10/03/2020 oxyCODONE-acet aminophen (PERCOCET) 5-325 MG tablet Take 1-2 Tabs by mouth every 4 hours as needed 50 Tab 0 5 Active Additional Information Patient not taking.Reported on 10/03/2020 ibuprofen (MOTRIN) 600 MG tablet Take 1 Tab by mouth every 6 hours as needed for Pain 60 Tab 0 5 Active Additional Information Patient not taking.Reported on 10/03/2020 docusate sodium (COLACE) 100 MG capsule Take 1 Cap by mouth 2 times daily 60 Cap 1 5 Active Additional Information Patient not taking.Reported on 10/03/2020 Uqlipzsr-Qet-M e-FA ( VITAMIN WITH IRON) tablet Take 1 Tab by mouth once daily 60 Tab 11 5 Active blood glucose (ONETOUCH VERIO) test strip Use 1 (one) strip 6 times daily while awake 200 strip 11 1 Active OneTouch Delica Lancets 33G MISC Use 1 Each 6 times daily while awake 100 Each 11 1 Active Insulin Pen Needle 32G X 4 MM MISC Use 1 Each 2 times daily 100 Each 11 1 Active Glucagon (BAQSIMI ONE PACK) 3 MG/DOSE POWD [place] 3 mg into the nose as needed 1 Each 1 1 Active aspirin (ASPIRIN) 81 MG chew tabletIndicati ons:Preeclamps ia Take 81 mg by mouth once daily Reasons: Increased Blood Pressure and Edema During Active insulin glargine (LANTUS) vialIndication s:Type 2 Diabetes Mellitus Inject 40-80 Units subcutaneously at bedtime Taking 40 units in am and 80 units at bedtime. Reasons: Type 2 Diabetes Active insulin lispro (HUMALOG;ADMEL OG) 100 UNIT/ML pen Inject 6 (six) Units to 12 (twelve) Units subcutaneously as directed Start with 6 units before breakfast. Increase as directed. 5 Pen 5 1 Active Active Problems Patient Care Coordination No te Formatting of this note migh t be different from the original. If patient discharged from [facility] today (01/03), needs GBS collected [id number] Problem Noted Date Diagnosed Date Obesity affecting , antepartum 06/30/19 15 Overview (10/01/2020): BMI 38.1 Diabetes mellitus during , antepartum 0 06/26/2014 Overview (10/09/2020): History of Diabetes: Pre-existing DM DM Type 2 Date of dx: 8-9 years ago per pt Complications of DM: denies Baseline A1c: 10.0 (08/21/2020) Repeat HgA1c: 7.3 H (10/04/20) Risk factors: strong family history (parents, grandparents, aunts, uncles) Prepreg BMI 36.6 (62, 213 lbs) Supervision of other high-risk 015 Overview (10/09/2020): Datin08/21/20 5w5d= 04/18/21 10/04/20 24hr TP UA: 195 H, Prot/creat ratio: 0.086 Resolved Problems Problem Noted Date Diagnosed Date Resolved Date Encounter for visit 01/16/2015 10/01/2020 induced hypertension, antepartum 01/03/2015 10/01/2020 Overview (01/04/2015): Assessment: - BP's borderline to severe today, hx of elevated BP's on 12/26 - Increasing proteinuria with neg protein on dips earlier in ; 1+ on 2 previous dips - Patient asymptomatic, but reports increasing LE edema - Baseline 24-hr urine 138 mg Plan: - BPs not severe overnight but remain elevated - Now with BRAND but no vision changes or RUQ pain - P/C 0.98, other Pre-E labs wnl - will rpt labs this morning - Plan for rpt CS today - will start Mag and move to L&D to optimize BG control Macrosomia 12/26/2014 10/01/2020 Overview (01/04/2015): US (12/26) at 35w5d: EFW 90%, 3335gm, AC >95%, KAYLAH 27.9cm, Anterior placenta Polyhydramnios, antepartum complication 12/26/2014 10/01/2020 Overview (01/04/2015): US (01/03) KAYLAH 28.5cm Likely due to T2DM Previous delivery, antepartum condition or complication 06/29/2014 10/01/2020 Overview (01/04/2015): G1 TSVD 8# 6oz G2 Patient reports at term for failure to descend, 8# 7oz Pt desires repeat Pre-eclampsia in third trimester 10/01/2020 Immunizations Immunization Administration Dates Next Due TDAP (7yrs+) 01/07/2015 Family History Medical History Relation Name Comments Diabetes Father Hypertension Father Diabetes Maternal Aunt Stroke Maternal Aunt Clotting Disorder Maternal Grandfather Diabetes Maternal Grandfather Cancer Maternal Grandmother esophag eal, breast Diabetes Maternal Grandmother Stroke Maternal Grandmother Diabetes Maternal Uncle Diabetes Mother Hypertension Mother Diabetes Paternal Aunt Clotting Disorder Paternal Grandfather Diabetes Paternal Grandfather Cancer Paternal Grandmother breast Diabetes Paternal Grandmother Diabetes Paternal Uncle Relation Name Status Comments Father Maternal Aunt Maternal Grandfather Maternal Grandmother Maternal Uncle Mother Paternal Aunt Paternal Grandfather Paternal Grandmother Paternal Uncle Social History Tobacco Use Types Packs/Day Years Used Date Smoking Tobacco: Never Smokeless Tobacco: Never Alcohol Use Standard Drinks/Week Comments No 0 (1 standard drink = 0.6 oz pur e alcohol) Comments No Sex and Gender Information Value Date Recorded Sex Assigned at Not on file Legal Sex Female 5:36 AM PHARMACY TECHNOLOGIST Gender Identity Not on file Sexual Orientation Not on file Last Filed Vital Signs Vital Sign Reading Time Taken Comments Blood Pressure 122/76 10/03/2020 9:40 AM CDT Pulse 97 10/03/2020 9:40 AM CDT Temperature 36.8 C (98.3 F) 01/07/2015 8:35 AM CDT Respiratory Rate 18 01/07/2015 8:35 AM CDT Oxygen Saturation 100% 01/06/2015 3:35 PM CDT Inhaled Oxygen Concentration - - Weight 99.2 kg (218 lb 9.6 oz) 10/03/2020 9:40 A M CDT Height 160 cm (5' 3) 10/03/2020 9:40 AM CDT Body Mass Index 38.72 10/03/2020 9:40 AM CDT Plan of Treatment Health Maintenance Due Date Last Done Comments HEPATITIS B VACCINE (1 of 3 - 19+ 3-dose series) 2007 PAP SMEAR 08/22/2023 08/21/2020 COVID-19 VACCINE (3 - 2023-2 5 season) 2023 05/25/2020, 05/04/2020 DEPRESSION SCREENING 04/13/2024 INFLUENZA VACCINE (Season Ended) 2024 DTAP/TDAP/TD VACCINES (2 - T d or Tdap) 01/07/2025 01/07/2015 ZOSTER VACCINE (1 of 2) 2038 HEPATITIS C SCREENING Completed 10/09/2020 , 10/09/2020 HIV SCREENING Completed 10/09/2020 HIB VACCINE Aged Out No longer eligi ble based on patient's age to complete this topic HPV VACCINE Aged Out No longer eligi ble based on patient's age to complete this topic MENINGOCOCCAL (Group B) VACCINE SHARED DECISION-MAKING Aged Out No longer eligible based on patient's age to complete this topic MENINGOCOCCAL GROUPS A/C/Y/W VACCINE Aged Out No longer eligible b ased on patient's age to complete this topic PNEUMOCOCCAL VACCINE Aged Out No long er eligible based on patient's age to complete this topic Insurance MEDICAID - PENDING MEDICAID LIMITED BENEFIT - [place] - [place] MED[place]ID LIMITED BENEFIT [facility] Member Subscriber Plan / Payer (Ef fective for All Dates) Name:Kelly Martin Member ID:Not on file Relation to Subscriber:Self Name:Kelly Martin Subscriber ID:Not on file Payer ID:Not on file Group ID:Not on file Type:Medicaid [place] Address: [place] [id number] [address] [place] [address] MEDICAID - [facility]PLAC[facility] BY [facility] Advance Directives * Full Code (Latest Code Status on File) Date Activated Date Inactivated Comments 01/04/2015 7:50 AM 01/07/2015 4:04 PM * Full Code Date Activated Date Inactivated Comments 01/03/2015 5:05 PM 01/04/2015 7:50 AM * Full Code Date Activated Date Inactivated Comments 01/03/2015 2:57 PM 01/03/2015 5:05 PM Care Teams Fire Patroller Relationship Specialty Start Date End Date Renetta Owen, RECORD LABEL INTERN-BUSINESS CONTINUITY SPECIALIST [address] [place] [id number] PCP - General 11/19/20
--- OUTSIDE RECORDS SUMMARY | 2024-07-27 00:38 | XMS_ITS | Clinical Summary ---
Author Organization [facility] Address [address] [place] [address] Care Team Providers Care Tax Lawyer Name Role Phone Renetta Owen Primary Care Provider Allergies Active Allergy Reactions Criticality Noted Date Comments Sertraline Other (see comment) Medium 08/13/2023 Severe chest pain Medications omeprazole 40 MG capsule Take 1 capsule (40 mg total) by mouth daily. Active prochlorperazine (COMPAZINE) 25 MG suppository every 12 (twelve) hours as needed. Active Lancets (ONETOUCH DELICA PLUS [id number]) [facility] 2021 Active metoclopramide (REGLAN) 10 MG tablet Take 1 tablet (10 mg total) by mouth 3 (three) times daily. Active RELION INSULIN SYR 0.3ML/31G 31G X 5/16 0.3 ML MiscIndications: Type 2 diabetes mellitus with hyperglycemia, with long-term current use of insulin ([facility] HHS/HCC) USE 1 AT BEDTIME 100 each 3 2022 Active Insulin Pen Needle (PEN NEEDLES 31GX5/16) 31G X 8 MM MiscIndications: Type 2 diabetes mellitus with hyperglycemia, with long-term current use of insulin ([facility] HHS/HCC) To be used with Novolog TID 100 each 2 2022 Active insulin lispro, 1 Unit Dial, (HUMALOG) 100 UNIT/ML injection (PEN) INJECT 8 UNITS SUBCUTANEOUSLY THREE TIMES DAILY BEFORE MEAL(S) 2022 Active metFORMIN (GLUCOPHAGE) 500 MG tabletIndication s:Uncontrolled type 2 diabetes mellitus with hyperglycemia (CMS/HCC HHS/HCC) Take 1 tablet (500 mg total) by mouth 2 (two) times daily with meals. 360 tablet 2024 Active Insulin Glargine, 2 Unit Dial, (ONELIA BROWN SOLOSTAR) 300 UNIT/ML Solution Pen-injectorIndi cations:Uncontro lled type 2 diabetes mellitus with hyperglycemia (CMS/HCC HHS/HCC) Inject 15 Units into the skin every evening. 6 mL 2024 Active Additional Information Patient taking differently: 20 UnitsSubcutaneous Every evening, Reported on 06/30/2024 atorvastatin (LIPITOR) 20 MG tabletIndication s:Mixed hyperlipidemia Take one tablet once daily 30 tablet 5 2024 Active glipiZIDE (GLUCOTROL) 5 MG tabletIndication s:Uncontrolled type 2 diabetes mellitus with hyperglycemia (CMS/HCC HHS/HCC) Take 1 tablet (5 mg total) by mouth 2 (two) times daily before meals. 90 tablet 2024 Active Glucose Blood (ONETOUCH VERIO) test stripIndications :Type 2 diabetes mellitus with hyperglycemia, with long-term current use of insulin (CMS/HCC HHS/HCC) 1 strip by Other route 3 (three) times daily. Use as instructed 100 strip 2024 Active Insulin Pen Needle (TRUEPLUS 5-BEVEL PEN NEEDLES) 32G X 4 MM MiscIndications: Type 2 diabetes mellitus with hyperglycemia, with long-term current use of insulin (CMS/HCC HHS/HCC) 1 Needle by Other route every evening. 300 each 1 2024 Active ondansetron (ZOFRAN-ODT) 4 MG disintegrating tablet DISSOLVE 1 TO 2 TABLETS IN MOUTH EVERY 8 HOURS NEEDED FOR NAUSEA AND VOMITING Active losartan (COZAAR) 25 MG tabletIndication s:Type 2 diabetes mellitus with hyperglycemia, with long-term current use of insulin (CMS/HCC HHS/HCC) Take 1 tablet by mouth once daily 30 tablet 2 2024 Active losartan (COZAAR) 25 MG tabletIndication s:Type 2 diabetes mellitus with hyperglycemia, with long-term current use of insulin (CMS/HCC HHS/HCC) Take 1 tablet (25 mg total) by mouth daily. 30 tablet 1 07/25 Discontinued mupirocin (BACTROBAN) 2 % ointmentIndicati ons:Blister of scalp with infection, initial encounter Apply topically 2 (two) times daily for 7 days. 22 g 07/07 Active Problems Problem Noted Date Diagnosed Date Gastroparesis 04/23/2021 History of section 01/14/2021 Delivery by section 09/17/2020 BMI 35.0-35.9,adult 07/02/2020 Mixed hyperlipidemia 07/02/2020 Essential hypertension 06/28/2020 Broken tooth 08/10/2016 Diabetes mellitus during , antepartum ( [facility]) 06/26/2014 Overview (07/08/2022): History of Diabetes: Pre-existing DM DM Type 2 Date of dx: 8-9 years ago per pt Complications of DM: denies Baseline A1c: 10.0 (08/21/2020) Repeat HgA1c: 7.3 H (10/04/20) Risk factors: strong family history (parents, grandparents, aunts, uncles) Prepreg BMI 36.6 (64, 213 lbs) Diabetes mellitus ([facility]) Resolved Problems Problem Noted Date Diagnosed Date Resolved Date Hyperemesis gravidarum ([facility]) 10/22/2020 10/22/2020 Nausea and vomiting 10/22/2020 12/04/19 21 14 weeks gestation of ([facility]) 10/22/2020 12/03/2020 Encounters Date Type Department Care Team Description 06/30/2024 9:40 AM CDT Office Visit [facility] Family & Internal Medicine [address] [phone] Renetta Owen APNP Diabetes 06/30/2024 Travel 06/10/2024 Scan [employer] INFO SRVCS Scanned, [facility] 06/02/2024 9:40 AM CIGAR HEAD PIERCER Office Visit [facility] Family & Internal Medicine [address] [phone] Renetta Owen APNP Diabetes 06/02/2024 Travel 05/19/2024 Scan [facility] INFO SRVCS Scanned, Doc [facility] 05/09/2024 Telephone [facility] Family & Internal [address] [phone] Renetta Owen APNP Medication Problem 05/04/2024 9:40 AM CIGAR HEAD PIERCER Office Visit [facility] & Internal [address] [phone] Renetta Owen APNP Diabetes 05/04/2024 Travel from Last 3 Months Immunizations Immunization Administration Dates Next Due COVID-19 Vaccine (Generic) 04/24/2020 Dtp (Generic) 06/27/1992 Influenza (Generic) 02/03/2016 MMR (MMRII) 06/27/1992 Polio Opv (Generic) 06/27/1992 Tdap (Generic) 01/07/2015 Family History Medical History Relation Comments Cancer Father colon---she thin ks Diabetes Father Cancer Maternal Grandmother breast Diabetes Mother Breast Cancer Paternal Grandmother Diabetes Sister 2 Relation Status Comments Daughter 1 Alive Her joints dont run together and sometimes pt collapses. Daughter 2 Alive Daughter 3 Alive Father Alive Maternal Grandmother Mother Alive Paternal Grandmother Sister 1 Alive Sister 2 Alive Social History Tobacco Use Types Packs/Day Years Used Date Smoking Tobacco: Never Smokeless Tobacco: Never Alcohol Use Standard Drinks/Week Comments Never 0 (1 standard drink = 0.6 oz pur e alcohol) AUDIT-C Answer Date Recorded Q1: How often do you have a drink containing alc ohol? Never 06/22/2020 Average Number of Drinks Not on file 021 Frequency of Binge Drinking Not on file 06/11 PHQ-2 Answer Date Recorded Patient Health Questionnaire-2 Score 2 05/04/2024 Comments No Sex and Gender Information Value Date Recorded Sex Assigned at Female 10/22/2020 12:47 AM CDT Legal Sex Female 8:02 PM CDT Gender Identity Female 10/22/2020 12:47 AM CDT Sexual Orientation Straight 10/22/2020 12 :47 AM CDT Last Filed Vital Signs Vital Sign Reading Time Taken Comments Blood Pressure 120/84 06/30/2024 9:52 AM CDT Pulse 90 06/30/2024 9:52 AM CDT Temperature 36.4 C (97.5 F) 06/30/2024 9:52 AM CDT Respiratory Rate 16 06/30/2024 9:52 AM CDT Oxygen Saturation 98% 06/30/2024 9:52 AM CDT Inhaled Oxygen Concentration - - Weight 96.9 kg (213 lb 11.2 oz) 06/30/2024 9:52 AM CDT Height 162.6 cm (5' 4) 06/30/2024 9:52 AM CDT Body Mass Index 36.68 06/30/2024 9:52 AM CDT Plan of Treatment Upcoming Encounters Date Type Department Care Team (Late st Contact Info) Description 09/07/2024 9:20 AM CDT Office Visit [facility] Family & Internal Medicine - [address] [phone] Renetta Owen APNP [address] [place] [id number] Health Maintenance Due Date Last Done Comments Annual Physical 1991 Diabetes: Retinopathy Eye Exam 2006 Cervical Cancer Screening Pap Smear (Age 30 to 64) Every 3 Years 08/22/2023 08/21/2020, 08/21/2020, 08/21/2020 Kidney Health Evaluation 08/12/2024 08/13/2023 Lipid Panel 08/12/2024 08/13/2023, 11/12, 06/23/2020 Hemoglobin A1C 09/30/2024 06/30/2024, 04/14, 08/13/2023, Additional history exists DTaP, Tdap and Td Vaccines (3 - Td or Tdap) 01/07/2025 01/07/2015, 06/27/1992 COVID-19 Vaccine (2023- season) 2025 02/20/2021, 05/25/2020, 05/04/2020, Additional history exists Postponed from 12/13/2023 (Patient Refused) Hepatitis B Vaccines (1 of 3 - 19+ 3-dose series) 06/30/2025 Postponed from 2007 (Patient/Guardian Refusal) Pneumococcal Vaccine: Pediatrics (0 to 5 Years) and At-Risk Patients (6 to 49 Years) (1 of 2 - PCV) 06/30/2025 Postponed from 2007 (Patient Refused) Cervical Cancer Screening Pap with HPV Testing (Age 30 to 64) Every 5 Years 08/21/2025 08/21/2020, 08/21/2020 Cervical Cancer Screening with HPV 08/21/2025 Hepatitis C Completed 10/09/2020, 10/09/2020 PHQ-2 (Physician [place]) Completed 05/04/2024 HPV Vaccines Aged Out No longer eligi ble based on patient's age to complete this topic Meningococcal B Vaccine Aged Out No l onger eligible based on patient's age to complete this topic Meningococcal Vaccine Aged Out No caty reddy eligible based on patient's age to complete this topic RSV Immunizations Under 20 Months Aged Out No longer eligible based on patient's age to complete this topic Goals Goal Patient Goal Type Associated Problems Recent Progress Patient-Stated? Author Safety - demonstrates understanding of home safety measures General No Irina Dsouza, RN Patient will return to prior living situation and remain independent in ADLs upon discharge from hospital General No Marina Holden wig sales consultant Procedure Name Priority Date/Time Associated Diagnosis Comments COLLECT.CAPILLARY (FNGR,HEEL,EAR) Routine 06/30/2024 9:46 AM CDT Uncontrolled type 2 diabetes mellitus with hyperglycemia (CMS/HCC HHS/HCC) HEMOGLOBIN, GLYCOSYLATED Routine 06/30/2024 Uncontrolled type 2 diabetes mellitus with hyperglycemia (CMS/HCC HHS/HCC) COLLECT.CAPILLARY (FNGR,HEEL,EAR) Routine 05/04/2024 10:13 AM CIGAR HEAD PIERCER Uncontrolled type 2 diabetes mellitus with hyperglycemia HEMOGLOBIN, GLYCOSYLATED Routine 05/04/2024 Uncontrolled type 2 diabetes mellitus with hyperglycemia (CMS/HCC HHS/HCC) LIPID PANEL Routine 08/13/2023 10:01 AM CDT Mixed hyperlipidemia OUTSIDE CYTOPATH CERV/VAG INTERPRET (PAP) 08/21/2020 from Last 3 Months or Most Recently Relevant to Health Maintenance Results * HEMOGLOBIN, GLYCOSYLATED (06/30/2024) Only the most recent of2 resultswithin the time period is included. HGB A1C 10.9 % [facility] 06/30/2024 [facility]etta [facility] Final Resul t Performing Organization Address City/[facility] Co de Phone Number [facility] [address] [place] [address], * (ABNORMAL) LIPID PANEL (08/13/2023 10:01 AM CDT) CHOLESTEROL 232(H) <200 MG/DL 08/13/2023 2:29 PM CDT [facility] TRIGLYCERIDES 106 <150 MG/DL 08/13/2023 2:29 PM CDT [facility] HDL 47 >40 MG/DL 08/13/2023 2:29 PM CDT [facility] LDL-C 164(H) <100 MG/DL 08/13/2023 2:29 PM CDT [facility] VLDL CALCULATION 21 5 - 28 MG/DL 08/13/2023 2:29 PM CDT [facility] CHOL/HDL RATIO 4.9(H) 0.0 - 4.0 08/13/2023 2:29 PM CDT [facility] LDL/HDL 3.5(H) 0.41 - 2.13 08/13/2023 2:29 PM CDT [facility] NON HDL CHOLESTEROL 185(H) <140 MG/DL 08/13/2023 2:29 PM CDT [facility] 08/13/2023 10:0 1 AM CDT [facility]etta [facility] Final Resul t Performing Organization Address City/[facility]/ZIP Co de Phone Number [facility] [address] [place] [address] [phone] * PAP SMEAR WITH HPV (08/21/2020) 08/21/2020 us [facility] Scanned SCANNING Final Resu lt from Last 3 Months or Most Recently Relevant to [place] [address] MEDICAID Member Subscriber Plan / Payer (Ef fective 2020-Present) Name:Kelly Martin Relation to Subscriber:Self Name:Kelly Martin Payer ID:Not on file Group ID:Not on file Type:Not on file Address: [place] [id number] DEPT OF [address] Advance Directives * Full Code (Latest Code Status on File) Date Activated Date Inactivated Comments 04/24/2021 12:25 AM 04/24/2021 2:44 PM Care Teams Tax Lawyer Relationship Specialty Start Date End Date Renetta Owen APNP [address] [place] [address] PCP - General NURSE PRACTITIONER 06/22/20
--- OUTSIDE RECORDS SUMMARY | 2024-07-27 00:38 | XMS_ITS | Clinical Summary ---
Author Organization [facility] Address [address] [place] [phone] Care Team Providers Care Plumbing Instructor Name Role Phone Renetta Owen Primary Care Provider + Lluvia Alcantar MD Unavailable [phone] Allergies No known active allergies Medications aspirin [...] 09/17/2020 BMI 35.0-35.9,adult 07/02/2020 Essential hypertension 06/28/2020 Surgical History Surgery Date Site/Laterality Comments SECTION DILATION AND CURETTAGE OF UTERUS 04/13/2015 - 04/12/20162020, also Medical History Medical History Date Comments Diabetes mellitus (HCC) Family History Medical History Relation Name Comments Colon cancer Father Breast cancer Maternal Grandmother Esophageal cancer Maternal Grandmother Breast cancer Paternal Grandmother Relation Name Status Comments Father Maternal Grandmother Paternal Grandmother Social History Tobacco Use Types Packs/Day Years Used Date Smoking Tobacco: Never Smokeless Tobacco: Never Personal Safety Answer Date Recorded Getting School Help Needed Not on file 06/12 Comments No Sex and Gender Information Value Date Recorded Sex Assigned at Not on file Legal Sex Female 5:29 PM IRON PILER Gender Identity Not on file Sexual Orientation Not on file Obstetrics History Para Term AB IAB SAB Ectopic Multiple Livin g Live Births 5 3 3 2 1 3 3 Date Outcome GA Total Labor Labor/2nd/3rd Weight Sex Type Anes PTL Trupti A1 A5 Name Clin SAB 2008 Term 3.827 kg (8 lb 7 oz) Vag-Sp ont Livin g 2011 Term 40w 0d 3.827 kg (8 lb 7 oz) F C-S j incis N Livin g 2014 Term 37w 0d 0h 01m 0h 01m 4.03 kg (8 lb 14.2 oz) M C-S j incis Spinal Livin g 7 9 Jourdan Dalal MD Complications:Pre eclampsia Delivery Location:[facility] 2016 AB 9w6 d Last Filed Vital Signs Vital Sign Reading [...] Plan of Treatment Not on file Insurance [employer] PPO Care Teams Plumbing Instructor Relationship Specialty Start Date End Date Renetta Owen PA [facility] [place] [address] PCP - General Nurse Practitioner 01/02/21 Lluvia Alcantar MD [address] [place] [id number] Referring Physician Obstetrics and Gynecology 01/02/21
--- OUTSIDE RECORDS SUMMARY | 2024-07-27 00:38 | XMS_ITS | Data Portability ---
Author Organization 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 Discussed the usage, side effects, risks, and benefits of OCP use. Questions answered. Prescription given for loloestrin. She will start OCP now. she will take methergine over weekend and call with update thursday. [email or web address] Not available 09/25/2021 12:05:37 12/23/2021 12/23/2021 healthy female exam patient declines std testing pap due 2023 mammogram at 38 contraception-oc p refilled Discussed tubal ligation/sterili zation in depth, including different methods, risks of , ectopic, regret, and alternate options. Questions answered. Pt prefers LSC salpingectomy. Pt consented to the procedure after discussing R/B/A. Will schedule. form signed. [email or web address] Not available 12/25/2021 08:35:04 01/20/2022 01/20/2022 Again discussed RBA, consented will contact PCP re diabetic meds and which to take night before since will be NPO. rest of meds may take night before. does not take any am meds. questions answered. [email or web address] Not available 01/20/2022 13:43:05 02/17/2022 02/17/2022 s/p LSC salpingectomy (bilateral) normal post op exam Follow up [facility] Dec 2022 Not available 03/03/2022 13:29:06 Plan of Treatment Reminders Order Date Submit Date Provider Last Modified By Organization Details Last Modified Time Details Appointments None recorded. Lab beta-HCG, quantitativ e, serum or plasma 2021 [facility] (Lab), [address], [place], [address], 05:03:08 CBC w/ auto diff 2021 [facility] (Lab), [address], [place], [address], 05:03:07 Referral None recorded. Procedures None recorded. Surgeries salpingecto my, laparoscopi c (SURG) 2021 [facility], [address], [address], 10:43:40 Imaging None recorded. Medication Orders Lo Loestrin Fe 1 mg-10 mcg (24)/10 mcg (2) tablet 2021 [facility] [place], [address], 10:28:10 Methergine 0.2 mg tablet 2021 [facility], [address] [place], [address], 11:25:19 Patient TargetsNo targets recorded. Patient InstructionsNo instructions recorded. Reason for Referral None Reported. Results Created Date Observation Date Name Description Value Unit Range Abnormal Flag Note LastModifiedBy Organization Detail LastModifiedTime 09/03/19 22 09/02/2021 HEMOG LOBIN A1C hemoglobin A1C 9.7 % 0-5.6 high The [facility]i can [facility] n recom mends that a prima ry goal of thernirav bedolla d be a HBA1C of < 7% and that physi cians chioma d reeva luate the treat ment regim en in patie nts with HBA1C value s consi stent ly > 8%. <5.7% Rossy l 5.7 - 6.4% Incre ased risk for diabe bahman >=6.5 % Diagn ostic of diabe bahman <7.0% Goal of thera py >8.0% Actio n sugge sted Not Available [facility] (Lab) [address], [place], [address], 09/03/2021 02:58:22 09/12/19 22 09/11/2021 [facility], QUANT ITATI VE B-HCG 43010. 0 mIU/m L This assay was perfo rmed using [employer] n reage nts and test kits. Value s obtai betty with other assay metho ds or kits canno t be used inter stahl eably . Refer ence Range s: Non-p regna nt, preme nopau gloria women : 0.0-5 .3 mIU/m L Postm enopa usal women : 0.0-7 .0 mIU/m L Rossy l Pregn zach: Gesta antonietta l Age bHCG Conc. - mIU/m L 3 Weeks 5.8 - 71.7 4 Weeks 9.5 - 750 5 Weeks 217-7 138 6 Weeks 158 - 31,79 5 7 Weeks 3,697 - 162,5 63 8 Weeks 32,06 5 - 149,5 71 9 Weeks 63,80 3 - 151,4 10 10 Weeks 46,50 9 - 186,9 77 12 Weeks 27,83 2 - 210,6 12 14 Weeks 13,95 0 - 62,53 0 15 Weeks 12,03 9 - 70,97 1 16 Weeks 9,040 - 56,45 1 17 Weeks 8,175 - 55,86 8 18 Weeks 8,099 - 58,17 6 Not Available [facility] (Lab) [address], [place], [address], 09/12/2021 05:44:41 09/14/19 22 09/13/2021 [facility], QUANT ITATI VE B-HCG 96333. 0 mIU/m L This assay was perfo rmed using [employer] n reage nts and test kits. Value s obtai betty with other assay metho ds or kits canno t be used [facility] . Refer ence Range s: Non-p regna nt, preme nopau gloria women : 0.0-5 .3 mIU/m L Postm enopa usal women : 0.0-7 .0 mIU/m L Rossy l Pregn zach: Gesta antonietta l Age bHCG Conc. - mIU/m L 3 Weeks 5.8 - 71.7 4 Weeks 9.5 - 750 5 Weeks 217-7 138 6 Weeks 158 - 31,79 5 7 Weeks 3,697 - 162,5 63 8 Weeks 32,06 5 - 149,5 71 9 Weeks 63,80 3 - 151,4 10 10 Weeks 46,50 9 - 186,9 77 12 Weeks 27,83 2 - 210,6 12 14 Weeks 13,95 0 - 62,53 0 15 Weeks 12,03 9 - 70,97 1 16 Weeks 9,040 - 56,45 1 17 Weeks 8,175 - 55,86 8 18 Weeks 8,099 - 58,17 6 Not Available [facility] (Lab) [address], [place], [address], 09/14/2021 14:16:15 09/17/19 22 09/16/2021 [facility], QUANT ITATI VE B-HCG 05065. 0 mIU/m L This assay was perfo rmed using [employer] n reage nts and test kits. Value s obtai betty with other assay metho ds or kits canno t be used [facility] . Refer ence Range s: Non-p regna nt, preme nopau gloria women : 0.0-5 .3 mIU/m L Postm enopa usal women : 0.0-7 .0 mIU/m L Rossy l Pregn zach: Gesta antonietta l Age bHCG Conc. - mIU/m L 3 Weeks 5.8 - 71.7 4 Weeks 9.5 - 750 5 Weeks 217-7 138 6 Weeks 158 - 31,79 5 7 Weeks 3,697 - 162,5 63 8 Weeks 32,06 5 - 149,5 71 9 Weeks 63,80 3 - 151,4 10 10 Weeks 46,50 9 - 186,9 77 12 Weeks 27,83 2 - 210,6 12 14 Weeks 13,95 0 - 62,53 0 15 Weeks 12,03 9 - 70,97 1 16 Weeks 9,040 - 56,45 1 17 Weeks 8,175 - 55,86 8 18 Weeks 8,099 - 58,17 6 Not Available [facility] (Lab) [address], [place], [address], 09/17/2021 02:48:55 09/26/19 22 09/25/2021 CBC W/DIF F WBC 9.1 10'3/ uL 3.6-10 .2 Not Available [facility] (Lab) [address], [place], [address], 09/26/2021 05:03:07 09/26/19 22 09/25/2021 CBC W/DIF F RBC 5.10 10'6/ uL (based on docume nted legal sex) 4.10-5 .30 Not Available [facility] (Lab) [address], [place], [address], 09/26/2021 05:03:07 09/26/19 22 09/25/2021 CBC W/DIF F HGB 12.7 g/dL (based on docume nted legal sex) 11.9-1 5.8 Not Available [facility] (Lab) [address], [place], [address], 09/26/2021 05:03:07 09/26/19 22 09/25/2021 CBC W/DIF F HCT 43.4 % (based on docume nted legal sex) 37.4-4 8.3 Not Available [facility] (Lab) [address], [place], [address], 09/26/2021 05:03:07 09/26/19 22 09/25/2021 CBC W/DIF F MCV 86.0 fL 82.0-9 9.0 Not Available [facility] (Lab) [address], [place], [address], 09/26/2021 05:03:07 09/26/19 22 09/25/2021 CBC W/DIF F MCH 25.0 pg 27.0-3 3.0 low Not Available [facility] (Lab) [address], [place], [address], 09/26/2021 05:03:07 09/26/19 22 09/25/2021 CBC W/DIF F MCHC 29.0 g/dL 32.0-3 6.0 low Not Available [facility] (Lab) [address], [place], [address], 09/26/2021 05:03:07 09/26/19 22 09/25/2021 CBC W/DIF F RDW 15.0 % 11.0-1 5.0 Not Available [facility] (Lab) [address], [place], [address], 09/26/2021 05:03:07 09/26/19 22 09/25/2021 CBC W/DIF F plt 339 10'3/ uL 150-45 0 Not Available [facility] (Lab) [address], [place], [address], 09/26/2021 05:03:07 09/26/19 22 09/25/2021 CBC W/DIF F MPV 11.3 fL 9.8-12 .7 Not Available [facility] (Lab) [address], [place], [address], 09/26/2021 05:03:07 09/26/19 22 09/25/2021 CBC W/DIF F NRBC's 0.00 % 0 Not Available [facility] (Lab) [address] [place], [address], 09/26/2021 05:03:07 09/26/19 22 09/25/2021 CBC W/DIF F absolute NRBCs 0.0 10'3/ uL 0 Not Available [facility] (Lab) [address], [place], [address], 09/26/2021 05:03:07 09/26/19 22 09/25/2021 CBC W/DIF F neutrophils 59.0 % 37.0-7 2.0 Not Available [facility] (Lab) [address], [place], [address], 09/26/2021 05:03:07 09/26/19 22 09/25/2021 CBC W/DIF F lymphocytes 33.0 % 16.0-4 8.0 Not Available [facility] (Lab) [address], [place], [address], 09/26/2021 05:03:07 09/26/19 22 09/25/2021 CBC W/DIF F monocytes 6.0 % 4.0-14 .0 Not Available [facility] (Lab) [address], [place], [address], 09/26/2021 05:03:07 09/26/19 22 09/25/2021 CBC W/DIF F eosinophils 2.0 % 0.0-9. 0 Not Available [facility] (Lab) [address], [place], [address], 09/26/2021 05:03:07 09/26/19 22 09/25/2021 CBC W/DIF F basophils 0.0 % 0.0-2. 0 Not Available [facility] (Lab) [address] [place], [address], 09/26/2021 05:03:07 09/26/19 22 09/25/2021 CBC W/DIF F immature granulocytes 0.0 % no define d refere nce range Not Available [facility] (Lab) [address] [place], [address], 09/26/2021 05:03:07 09/26/19 22 09/25/2021 CBC W/DIF F absolute neutrophils 5.3 10'3/ uL 1.1-6. 0 Not Available [facility] (Lab) [address], [place], [address], 09/26/2021 05:03:07 09/26/19 22 09/25/2021 CBC W/DIF F absolute lymphocytes 3.0 10'3/ uL 0.7-3. 4 Not Available [facility] (Lab) [address], [place], [address], 09/26/2021 05:03:07 09/26/19 22 09/25/2021 CBC W/DIF F absolute monocytes 0.5 10'3/ uL 0.3-1. 0 Not Available [facility] (Lab) [address], [place], [address], 09/26/2021 05:03:07 09/26/19 22 09/25/2021 CBC W/DIF F absolute eosinophils 0.2 10'3/ uL 0.0-0. 6 Not Available [facility] (Lab) [address], [place], [address], 09/26/2021 05:03:07 09/26/19 22 09/25/2021 CBC W/DIF F absolute basophils 0.0 10'3/ uL 0.0-0. 1 Not Available [facility] (Lab) [address], [place], [address], 09/26/2021 05:03:07 09/26/19 22 09/25/2021 CBC W/DIF F absolute immature granulocytes 0.00 10'3/ uL 0.00-0 .10 2021 3:38 AM: P indic ates parti al resul ts on a panel have been relea sed. Addit ional resul ts will follo w. 2021 3:38 AM: This resul t has been final verif ied. No addit ional or stahl ed resul ts are expec orlando. Not Available [facility] (Lab) [address], [place], [address], 09/26/2021 05:03:07 09/26/19 22 09/25/2021 [facility], QUANT [facility]AT[facility] B-HCG 1903.0 mIU/m L This assay was perfo rmed using [employer] n reage nts and test kits. Value s obtai betty with other assay metho ds or kits canno t be used inter st[facility] e[facility] . Refer ence Range s: Non-p regna nt, preme nopau gloria women : 0.0-5 .3 mIU/m L Postm enopa usal women : 0.0-7 .0 mIU/m L Rossy l Pregn zach: Gesta antonietta l Age bHCG Conc. - mIU/m L 3 Weeks 5.8 - 71.7 4 Weeks 9.5 - 750 5 Weeks 217-7 138 6 Weeks 158 - 31,79 5 7 Weeks 3,697 - 162,5 63 8 Weeks 32,06 5 - 149,5 71 9 Weeks 63,80 3 - 151,4 10 10 Weeks 46,50 9 - 186,9 77 12 Weeks 27,83 2 - 210,6 12 14 Weeks 13,95 0 - 62,53 0 15 Weeks 12,03 9 - 70,97 1 16 Weeks 9,040 - 56,45 1 17 Weeks 8,175 - 55,86 8 18 Weeks 8,099 - 58,17 6 Not Available [facility] (Lab) [address], [place], [address], 09/26/2021 05:03:08 10/02/19 22 10/01/2021 BHCG, QUANT ITATI VE B-HCG 1068.0 mIU/m L This assay was perfo rmed using [employer] n reage nts and test kits. Value s obtai betty with other assay metho ds or kits canno t be used inter [facility] . Refer ence Range s: Non-p regna nt, preme nopau gloria women : 0.0-5 .3 mIU/m L Postm enopa usal women : 0.0-7 .0 mIU/m L Rossy l Pregn zach: Gesta antonietta l Age bHCG Conc. - mIU/m L 3 Weeks 5.8 - 71.7 4 Weeks 9.5 - 750 5 Weeks 217-7 138 6 Weeks 158 - 31,79 5 7 Weeks 3,697 - 162,5 63 8 Weeks 32,06 5 - 149,5 71 9 Weeks 63,80 3 - 151,4 10 10 Weeks 46,50 9 - 186,9 77 12 Weeks 27,83 2 - 210,6 12 14 Weeks 13,95 0 - 62,53 0 15 Weeks 12,03 9 - 70,97 1 16 Weeks 9,040 - 56,45 1 17 Weeks 8,175 - 55,86 8 18 Weeks 8,099 - 58,17 6 Not Available [facility] (Lab) [address], [place], [address], 10/02/2021 03:07:37 10/10/19 22 10/09/2021 BHCG, QUANT ITATI VE B-HCG 277.0 mIU/m L This assay was perfo rmed using [employer] n reage nts and test kits. Value s obtai betty with other assay metho ds or kits canno t be used inter [facility] . Refer ence Range s: Non-p regna nt, preme nopau gloria women : 0.0-5 .3 mIU/m L Postm enopa usal women : 0.0-7 .0 mIU/m L Rossy l Pregn zach: Gesta antonietta l Age bHCG Conc. - mIU/m L 3 Weeks 5.8 - 71.7 4 Weeks 9.5 - 750 5 Weeks 217-7 138 6 Weeks 158 - 31,79 5 7 Weeks 3,697 - 162,5 63 8 Weeks 32,06 5 - 149,5 71 9 Weeks 63,80 3 - 151,4 10 10 Weeks 46,50 9 - 186,9 77 12 Weeks 27,83 2 - 210,6 12 14 Weeks 13,95 0 - 62,53 0 15 Weeks 12,03 9 - 70,97 1 16 Weeks 9,040 - 56,45 1 17 Weeks 8,175 - 55,86 8 18 Weeks 8,099 - 58,17 6 Not Available [facility] (Lab) [address], [place], [address], 10/10/2021 03:47:55 10/24/19 22 10/23/2021 BHCG, QUANT ITATI VE B-HCG 40.3 mIU/m L This assay was perfo rmed using [employer] reage nts and test kits. Value s obtai betty with other assay metho ds or kits canno t be used inter st[facility] e[facility] . Refer ence Range s: Non-p regna nt, preme nopau gloria women : 0.0-5 .3 mIU/m L Postm enopa usal women : 0.0-7 .0 mIU/m L Rossy l Pregn zach: Gesta antonietta l Age bHCG Conc. - mIU/m L 3 Weeks 5.8 - 71.7 4 Weeks 9.5 - 750 5 Weeks 217-7 138 6 Weeks 158 - 31,79 5 7 Weeks 3,697 - 162,5 63 8 Weeks 32,06 5 - 149,5 71 9 Weeks 63,80 3 - 151,4 10 10 Weeks 46,50 9 - 186,9 77 12 Weeks 27,83 2 - 210,6 12 14 Weeks 13,95 0 - 62,53 0 15 Weeks 12,03 9 - 70,97 1 16 Weeks 9,040 - 56,45 1 17 Weeks 8,175 - 55,86 8 18 Weeks 8,099 - 58,17 6 Not Available [facility] [address] [place] [address], [address], 10/24/2021 03:53:21 11/08/19 22 11/07/2021 BHCG, QUANT ITATI VE B-HCG 8.5 mIU/m L This assay was perfo rmed using [employer] n reage nts and test kits. Value s obtai betty with other assay metho ds or kits canno t be used inter st[facility] e[facility] . Refer ence Range s: Non-p regna nt, preme nopau gloria women : 0.0-5 .3 mIU/m L Postm enopa usal women : 0.0-7 .0 mIU/m L Rossy l Pregn zach: Gesta antonietta l Age bHCG Conc. - mIU/m L 3 Weeks 5.8 - 71.7 4 Weeks 9.5 - 750 5 Weeks 217-7 138 6 Weeks 158 - 31,79 5 7 Weeks 3,697 - 162,5 63 8 Weeks 32,06 5 - 149,5 71 9 Weeks 63,80 3 - 151,4 10 10 Weeks 46,50 9 - 186,9 77 12 Weeks 27,83 2 - 210,6 12 14 Weeks 13,95 0 - 62,53 0 15 Weeks 12,03 9 - 70,97 1 16 Weeks 9,040 - 56,45 1 17 Weeks 8,175 - 55,86 8 18 Weeks 8,099 - 58,17 6 Not Available [facility] [address] [place], [address], 11/08/2021 09:57:09 11/23/19 22 11/22/2021 [facility], QUANT ITATI VE B-HCG 1.6 mIU/m L This assay was perfo rmed using [employer] n reage nts and test kits. Value s obtai betty with other assay metho ds or kits canno t be used inter st[facility] . Refer ence Range s: Non-p regna nt, preme nopau gloria women : 0.0-5 .3 mIU/m L Postm enopa usal women : 0.0-7 .0 mIU/m L Rossy l Pregn zach: Gesta antonietta l Age bHCG Conc. - mIU/m L 3 Weeks 5.8 - 71.7 4 Weeks 9.5 - 750 5 Weeks 217-7 138 6 Weeks 158 - 31,79 5 7 Weeks 3,697 - 162,5 63 8 Weeks 32,06 5 - 149,5 71 9 Weeks 63,80 3 - 151,4 10 10 Weeks 46,50 9 - 186,9 77 12 Weeks 27,83 2 - 210,6 12 14 Weeks 13,95 0 - 62,53 0 15 Weeks 12,03 9 - 70,97 1 16 Weeks 9,040 - 56,45 1 17 Weeks 8,175 - 55,86 8 18 Weeks 8,099 - 58,17 6 Not Available [facility] [address] [place], [address], 11/23/2021 02:34:31 08/31/19 22 08/30/2021 US, obste tric, trans vagin al No observ ation record ed. [email or web address] [place] [address], [place], [address], 08/30/2021 17:43:32 08/31/19 22 08/30/2021 US, obste tric, trans vagin al No observ ation record ed. [email or web address] [place] [address], [place], [address], 09/02/2021 11:01:32 09/12/19 22 09/11/2021 US, obste tric, trans vagin al No observ ation record ed. [email or web address] [place] [address], [place], [address], 09/11/2021 18:45:03 09/12/19 22 09/11/2021 US, obste tric, trans vagin al No observ ation record ed. [email or web address] [place] [address], [place], [address], 09/13/2021 08:43:50 Result Notes None recorded. Problems Name Problem SNOMED Code Status Onset Date Resolution Date Notes Provider Name and Address Organization Details Recorded Time Type 2 diabetes mellitus 18036670 Active 2020 MFM managing BS- Metformi n 1000 mg BID, decrease lantus in PM to 74 units NOÉ Harris - [facility] 12:44:07 Deliveri es by [id number] Active 2020 Lluvia Alcantar MD [address], [place], [address], [facility] 1 10:09:24 Past pregnanc y history of pre-ecla mpsia 1132848484 70473 Active 2020 baseline pih labs, ASA Winsome ellison null, [facility] 12:44:07 Pregnanc y 14186861 Completed 202011/02/2020 Diana Adams null, [facility] 11:47:35 Past pregnanc y history of section 441062213 Active x2, repeat with tubal Winsome ellison null, [facility] 12:44:07 Past pregnanc y history of pre-ecla mpsia [id number] 38132 Completed 2020 baseline pih labs, ASA Winsome ellison null, [facility] 12:44:07 Past pregnanc y history of section 894020059 Completed x2, repeat with tubal Winsome ellison null, [facility] 12:44:07 Type 2 diabetes mellitus 90270324 Completed 2020 MFM managing BS- Metformi n 1000 mg BID, decrease lantus in PM to 74 units Winsome ellison null, [facility] 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 14:33:37 Notes:MFM - / DE & /2 07/01 u/s, OV, and DE appt Insulin NPH @ HS increase from 20 to 34units 09/06 per AD Problem Notes None recorded. Procedures Surgical History Date Name Laterality Status Provider Name and Address Organization Details Recorded Time 01/28/20 22 SALPINGECTOMY, LAPAROSCOPIC (SURG) completed [facility] 01/28/2022 11:06:32 09/19/19 22 SUCTION DILATION & CURETTAGE (SURG) completed [facility] 09/19/2021 11:37:04 02/07/20 21 DILATION AND CURETTAGE WITH HYSTEROSCOPY (SURG) completed [facility] 02/07/2021 11:49:54 08/22/19 21 Date of Last Pap Smear completed Odalis Dorado [facility] 12/23/2021 09:13:23 01/13/20 16 Dilation and Curettage completed [facility] 08/21/2020 15:27:16 01/05/20 15 section completed [facility] 08/21/2020 15:05:14 04/19/19 12 section completed [facility] 08/21/2020 15:05:09 Imaging Results Imaging Date Name Status LastModified by Organization Details LastModified Time 08/30/2021 US, obstetric, transvaginal completed [email or web address] [place] [address], [place], [address], 08/30/2021 17:43:32 08/30/2021 US, obstetric, transvaginal completed [email or web address] [address], [facility] [place], [address], 09/02/2021 11:01:32 09/11/2021 US, obstetric, transvaginal completed [email or web address] [place] [address], [place], [address], 09/11/2021 18:45:03 09/11/2021 US, obstetric, transvaginal completed [email or web address] [address], [place], [address], 09/13/2021 08:43:50 Procedure Notes None recorded. Medical Equipment None Reported. Allergies No known drug allergies Medications Name Sig Start Date Stop Date Status Note LastModified by Organization Details LastModified Time Prescriptio n - Prior Authorizati on Request active Not Available Not Available N ot Available doxycycline hyclate 100 mg capsule TAKE 1 CAPSULE BY MOUTH TWICE DAILY active Not Available Not Available No t Available cefuroxime axetil 250 mg tablet TAKE 1 TABLET BY MOUTH TWICE DAILY FOR 10 DAYS 08/21 completed Not Available Not Available Not Available atorvastati n 10 mg tablet TAKE 1 TABLET BY MOUTH NIGHTLY AT BEDTIME active Not Available Not Available No t Available Glucagon Emergency Kit 1 mg solution for injection USE DIRECTED 02/17 completed Not Available Not Available Not Available hydrocodone 5 mg-acetamin ophen 325 mg tablet TAKE 1 TABLET BY MOUTH EVERY 6 HOURS NEEDED FOR PAIN active Not Available Not Available No t Available Compro 25 mg rectal suppository INSERT 1 SUPPOSITO RY RECTALLY EVERY 12 HOURS NEEDED FOR NAUSEA AND VOMITING active Not Available Not Available No t Available sucralfate 1 gram tablet TAKE 1 TABLET BY MOUTH 4 TIMES DAILY TAKE 30 60 MINUTES BEFORE MEALS AND BEDTIME AFTER 10 DAYS MAY TAKE THIS MEDICINE 2 4 TIMES A DAY NEEDED 01/02 completed Not Available Not Available Not Available prochlorper azine maleate 10 mg tablet TAKE 1 TABLET BY MOUTH EVERY 8 HOURS NEEDED FOR NAUSEA AND FOR VOMITING active Not Available Not Available No t Available omeprazole 40 mg capsule,del ayed release TAKE 1 CAPSULE BY MOUTH ONCE DAILY active Not Available Not Available No t Available ondansetron 8 mg disintegrat ing tablet DISSOLVE 1 TABLET IN MOUTH TWICE DAILY 09/25 completed Not Available Not Available Not Available amoxicillin 875 mg tablet TAKE 1 TABLET BY MOUTH TWICE DAILY FOR 10 DAYS 02/17 completed Not Available Not Available Not Available famotidine 20 mg tablet TAKE 2 TABLETS BY MOUTH TWICE DAILY FOR 4 DAYS THEN 1 ONCE DAILY THEREAFTE R 12/23 completed Not Available Not Available Not Available metoclopram amalia 5 mg tablet TAKE 2 TABLETS BY MOUTH THREE TIMES DAILY NEEDED FOR NAUSEA active Not Available Not Available No t Available Methergine 0.2 mg tablet Take 1 tablet twice a day by oral route for 5 days. 2021 active Not Available Not Available Not Brea garcia ciprofloxac in 0.3 % eye drops INSTILL 1 DROP INTO LEFT EYE EVERY 2 HOURS WHILE AWAKE FOR 2 DAYS AND THEN 1 EVERY 4 HOURS WHILE AWAKE FOR 5 DAYS 12/23 completed Not Available Not Available Not Available metformin 1,000 mg tablet TAKE 1 TABLET BY MOUTH TWICE DAILY WITH MEALS 01/02 completed Not Available Not Available Not Available lisinopril 10 mg tablet TAKE 1 TABLET BY MOUTH ONCE DAILY active Not Available Not Available No t Available Humulin N NPH U-100 Insulin (isophane susp) 100 unit/mL subcutaneou s INJECT 20 UNITS SUBCUTANE OUSLY AT BEDTIME 02/17 completed Not Available Not Available Not Available insulin syringe U-100 with needle 0.3 mL 31 gauge x 5/16 USE 1 AT BEDTIME active Not Available Not Available No t Available lisinopril 5 mg tablet 12/23 completed Not Available Not Available Not Available methylpredn isolone 4 mg tablets in a dose pack TAKE BY MOUTH DIRECTED ON INSIDE OF PACKAGE 01/02 completed Not Available Not Available Not Available ondansetron 4 mg disintegrat ing tablet DISSOLVE 1 TO 2 TABLETS IN MOUTH EVERY 8 HOURS NEEDED FOR NAUSEA AND VOMITING active Not Available Not Available No t Available metformin ER 500 mg tablet,exte nded release 24 hr TAKE 1 TABLET BY MOUTH ONCE DAILY FOR 7 DAYS THEN 1 TWICE DAILY active Not Available Not Available No t Available metoclopram amalia 10 mg tablet TAKE 1 TABLET BY MOUTH 4 TIMES DAILY NEEDED active Not Available Not Available No t Available amoxicillin 875 mg-potassiu m clavulanate 125 mg tablet 09/25 completed Not Available Not Available Not Available insulin lispro (U-100) 100 unit/mL subcutaneou s pen INJECT 6 TO 12 UNITS SUBCUTANE OUSLY DIRECTED START WITH 6 UNITS BEFORE BREAKFAST AND INCREASE DIRECTED 02/17 completed Not Available Not Available Not Available Sprintec (28) 0.25 mg-0.035 mg tablet 08/21 completed Not Available Not Available Not Available rosuvastati n 10 mg tablet TAKE 1 TABLET BY MOUTH NIGHTLY 01/02 completed Not Available Not Available Not Available metformin 08/21 completed Not Available Not Available Not Available 02/17 completed Not Available Not Available Not Available Lantus Solostar U-100 Insulin 100 unit/mL (3 mL) subcutaneou s pen INJECT 38 UNITS SUBCUTANE OUSLY NIGHTLY AT BEDTIME active Not Available Not Available No t Available Erlinda 30 mg tablet 08/21 completed Not Available Not Available Not Available Lo Loestrin Fe 1 mg-10 mcg (24)/10 mcg (2) tablet Take 1 tablet every day by oral route. 02/17 completed Not Available Not Available Not Available OneTouch Verio test strips USE 1 STRIP TO CHECK GLUCOSE 4 TIMES DAILY active Not Available Not Available No t Available Pirmella 1 mg-35 mcg tablet TAKE 1 TABLET BY MOUTH ONCE DAILY 12/23 completed Not Available Not Available Not Available Farxiga 5 mg tablet TAKE 1 TABLET BY MOUTH ONCE DAILY active Not Available Not Available No t Available FC2 Female Condom 08/21 completed Not Available Not Available Not Available TRUEplus Pen Needle 31 gauge x 5/16 USE DIRECTED active Not Available Not Available No t Available TRUEplus Pen Needle 32 gauge x 5/32 USE 1 PEN NEEDLE TWICE DAILY active Not Available Not Available No t Available OneTouch Ultra Blue Test Strip USE 1 STRIP TO CHECK GLUCOSE THREE TIMES DAILY FOR DIABETES active Not Available Not Available No t Available Novolin 70-30 FlexPen U-100 01/02 completed Not Available Not Available Not Available OneTouch Ultra2 Meter USE TO CHECK GLUCOSE THREE TIMES DAILY FOR DIABETES active Not Available Not Available No t Available OneTouch Delica Plus Lancet 33 gauge USE 1 STRIP TO CHECK GLUCOSE SIX TIMES DAILY WHILE AWAKE active Not Available Not Available No t Available BinaxNOW COVID-19 Ag Self Test kit Use as Directed on the Package 12/23 completed Not Available Not Available Not Available Vitals Date Recorded Body height Body mass index (BMI) Body weight Systolic blood pressure Diastolic blood pressure Provider Name and Address Organization Details Last Updated DateTime 09/25/2021 160.02 cm 39.5 kg/m2 802159.1 g 121 mm[Hg] 72 mm[Hg] [facility] 2 11:02:13 Date Recorded Body height Body mass index (BMI) Body weight Systolic blood pressure Diastolic blood pressure Provider Name and Address Organization Details Last Updated DateTime 12/23/2021 160.02 cm 38.4 kg/m2 82601.54 g 123 mm[Hg] 80 mm[Hg] [facility] 2 10:59:57 Date Recorded Body height Body mass index (BMI) Body weight Systolic blood pressure Diastolic blood pressure Provider Name and Address Organization Details Last Updated DateTime 01/20/2022 160.02 cm 38.1 kg/m2 68078.36 g 133 mm[Hg] 84 mm[Hg] [facility] 2 12:34:14 Date Recorded Body height Body mass index (BMI) Body weight Systolic blood pressure Diastolic blood pressure Systolic blood pressure Diastolic blood pressure Provider Name and Address Organization Details Last Updated DateTime 2 160.02 cm 37.9 kg/m2 50822.7 7 g 147 mm[Hg] 89 mm[Hg] 150 mm[Hg] 98 mm[Hg] [facility] 2 10:27:46 Social History None recorded. Functional Status Question Answer Note LastModified by Organizat ion Details LastModified Time What is your exercise level? Occasional Walking [email or web address] Information not available 08/21/2020 Mental Status None recorded. Family History Relationship Description Onset Age of this Age Resolved Age Notes LastModified by Organization Details LastModified Time Maternal Grandmother Malignant tumor of breast Not available 2020 15:20:09 Paternal Grandmother Malignant tumor of breast [email or web address] Not available 2020 15:20:09 Father Malignant tumor of colon [email or web address] Not available 2020 15:20:17 Medical History Condition Response Anxiety Disorder Y Diabetes Y Hypertension Y Gynecological History Statement/Question Response Abnormal Pap N Flow Moderate Date of LMP Sexually Active? Y STIs/STDs N Date of Last Pap Smear 08/21/2020 Sexual Problems? N Current Control Method None LMP Approximate Obstetrics History GPAL:G 6 P 3 0 3 3 Type Value Full Term 3 Spontaneous 3 Living 3 Total 6 Past Encounters Encounter ID Performer Location Encounter Start Date Encounter Closed Date Diagnosis/Indication Diagnosis SNOMED-CT Code Diagnosis ICD10 Code Diagnosis Note [id number] Angelique Arias [place] [address] [address] 08/21/2020 14:58:45 08/21/2020 17:32:14 Gynecologic examination 23610094 Z01.419 Risk factors addressed: Tobacco Cessation, Safe Sexual Practices, environmen yael, work hazards, travel restrictio ns, seat belt use. Eat a health well balanced diet, avoid alcohol, tobacco, and street drugs. Engage in daily low impact exercise, avoid temperatur e extremes, and cat, rodent, and bird feces. Avoid travel to areas where zika virus is a concern. Offered cf/sma/nip t. t unsure. Will discuss with FOB. Declines testing. Handouts given and discussed with patient. Childbirth classes recommende d. New OB sheet given. If previous , counseling . Will have repeat c/s. Pt verbalizes that she understand s the importance of above instructio ns. All questions were answered. Patient reminded to have annual well woman examinatio n and address preventati ve healthcare . Pre-existi ng type 2 diabetes mellitus in 190801445 O24.119 Hgb A1c today. Encouraged tight blood sugar control. Only checking her bs 2x per day at this point. I have asked her to check fbs and and 1 hour after breakfast, lunch, and dinner. Diet teaching to be scheduled along with M visit. Log given to patient. She will bring bs log and medication s to visit on Thursday. Hypertensive disorder 38 626037 I10 Pt states she is on lisinopril only for organ protection and usually her bp's are normal. Pt will start baby aspirin daily. Spoke with Dr Alcantar and pt can discontinu e lisinopril and we will do a bp check on Thursday along with insulin management and diet teaching. [id number] Pratima Pak [place] [address] [address] 08/21/2020 15:00:25 08/21/2020 17:32:24 Uncertain viability of 815437465 O36.80X0 Z3A.01 [id number] Lluvia Alcantar MD [place] [address] [address] 08/24/2020 09:44:23 08/24/2020 11:19:23 Uncertain viability of 948329985 O36.80X9 Uncontroll ed type 2 diabetes mellitus 155036083 E11.65 [id number] Diana Adams [place] [address] [address] 08/24/2020 09:44:46 08/24/2020 15:26:40 Pre-existing type 2 diabetes mellitus in 592582800 O24.119 Pt here for diet teaching. Went over ideal ranges for FBS and pp BS. Went over carb counting and carb ranges for each meal/snack . Pt was not familiar with nutrition labels and went over a sample nutrition label with pt and how to look at total carbs and importance of serving sizes. Gave ideas for foods to eat for meals/snac ks. Discussed drink options and to avoid soda and juice. Pt states she has cut soda out and has been drinking propel water, told pt that is fine to continue. Told pt she can go online to [employer] for meal options or to look up low carb meal recipes online for ideas as well. Pt saw Dr. Alcantar for an appointmen t today and insulin was increased to 30u NPH @ HS, 15u in AM, and increased Metformin to 1000mg QD. Pt aware/unde rstood increase insulin/Me tformin changes. Pt understand s importance of good BS control for her health and baby's health. Pt will continue to check BS QID. All of fasting and postprandi al sugars are extremely elevated. Pt will work on diet and seems receptive to diet teaching and wanting to improve her health and wanting the to be healthy. Pt will bring in BS next week and once we confirm viability on next weeks u/s we will refer to MFM so they can help co-manage pt and diabetes. All pts questions were answered and to call with any questions/ concerns. Pt verbalized understand ing. YI gimenez [id number] Peggy Ortiz [place] [address] [address] 08/28/2020 09:23:34 08/28/2020 11:09:00 Uncertain viability of 930068666 O36.80X0 [id number] Peggy Ortiz [place] [address],[place] [address] 09/07/2020 13:16:50 09/07/2020 14:03:40 Threatened miscarriage 38197872 O20.0 Z3A.01 [id number] Pratima Pak [place] [address],[place] [address] 09/14/2020 12:24:43 09/14/2020 15:28:01 [id number] Lluvia Alcantar MD [place] [address],[place] [address] 09/14/2020 14:16:19 09/16/2020 22:33:00 Type 2 diabetes mellitus 91617993 E11.9 First trimester at 9w1d by US today Ob education done and all questions answered. Discussed safe sexual practices, environmen yael, work hazards, travel restrictio ns, seat belt use. Encouraged flu shot. Encouraged a healthy well balanced diet, avoid alcohol, tobacco, and street drugs, and engage in daily low impact exercise. Avoid cat feces. Avoid travel to areas where zika virus is a concern. OB labs next visit Encouraged vitamins. Prescripti on sent if needed. Discussed screening for aneuploidy - pt isadora arreola Discussed in depth risks of diabetes in including miscarriag e, anomalies, LGA, stillbirth . Doing well improving sugars with each adjustment . MFM on 09/26 and they will then manage insulin and sugars. For now, keep metformin 1000 BID and 80 NPH at night, change am NPH to 40u. Insulin refilled. Desires repeat CS with tubal. Discussed tubal risks, salpingect julia. Pt desires. Will sign tubal papers in early 3rd tri. stopped her statin Follow up in 4 weeks for first ob appointmen t Past pregn zach history of pre-eclampsia 5872929922 01969 Z87.59 Deliveries by [id number] O82 test positive 516609942 Z32.01 Sterilizat ion requested 024128549 Z30.2 [id number] Lluvia Alcantar MD [place] [address],[place] [address] 10/09/2020 10:18:24 10/09/2020 21:53:33 Routine care 350892269 Z34.02 Deliveries by [id number] O82 Past pregn zach history of pre-eclampsia 6349823056 52142 Z87.59 Type 2 carlo betes mellitus 88591352 E11.9 - induced hypertension 83987246 O13.9 [id number] Bert Bui MD [place] [address],[place] [address] 10/31/2020 17:07:07 11/04/2020 15:19:13 Missed miscarriage 28056839 O02.1 This patient is a 30-year-ol d multiparou s female who presented for follow-up from [facility]. She was having trouble controllin g her diabetes. Her diabetes was very out of control at the start of this . No heart tones could be appreciate d with the Doppler. A an informal ultrasound revealed no heartbeat and no movement. This is certainly a missed . She is approximat norma 15 weeks gestation. We discussed treatment options broadly. She is going to return tomorrow for formal ultrasound And a discussion . [id number] Peggy Ortiz [place] [address],[place] [address] 11/01/2020 16:25:16 11/01/2020 17:34:22 Missed miscarriage 28143762 O02.1 Z3A.15 This patient is a 30-year-ol d multiparou s female who presented for follow-up from [facility]. She was having trouble controllin g her diabetes. Her diabetes was very out of control at the start of this . No heart tones could be appreciate d with the Doppler. A an informal ultrasound revealed no heartbeat and no movement. This is certainly a missed . She is approximat norma 15 weeks gestation. We discussed treatment options broadly. She is going to return tomorrow for formal ultrasound And a discussion . [id number] Bert Bui MD [place] [address],[place] [address] 11/01/2020 16:25:46 11/04/2020 15:41:22 Missed miscarriage 07247803 O02.1 Z3A.15 This patient is a 30-year-ol d female presents for missed AB at 14 weeks. Formal ultrasound performed today to confirm the non viability of the . We discussed treatment options. We discussed evaluation of recurrent miscarriag e. She will consider evaluation . This is her 2nd consecutiv e miscarriag e. She would like to do the medication in the hospital. I believe that is the best option. She will contact me when she is ready to be admitted to Labor and delivery for medication . I spent more than 35 minutes with the patient discussing various aspects of this complex situation. The baby is lying transverse ly over the cervix. [id number] Bert Bui MD [place] [address],[facility] [address] 11/12/2020 14:01:41 11/12/2020 16:12:41 Nausea and vomiting 24563609 R11.2 This patient is a 30-year-ol d female who presents for follow-up after induction of miscarriag e and D&C. The patient had hyper emesis. That was leading up to her missed miscarriag e. Patient also had very poorly controlled sugars. She had a hemoglobin A1c of 11 at 1 time During the . She is still vomiting. They are times when she is not keeping liquids or solids down. She is getting better to some degree. Yesterday she had a good day with little vomiting until the evening hours. She vomited today. She is not consistent ly keeping liquids down. I asked her to be admitted to the hospital. She declined. She would still like to manage it as an outpatient . We agreed to increasing her dose of Reglan. She is going to get some low sugar nutrient drinks. She is going to follow up in a week. Hoping this resolved quickly. We talked about gastropare sis. Talked about taking her Prilosec as well. [id number] Bert Bui MD [place] [address],[facility] [place] [address] 11/21/2020 16:47:09 11/22/2020 14:15:46 Screening procedure 98763518 Z13.9 Nausea and vomiting 1693 2000 R11.2 this patient is a 30-year-ol d female presents for follow-up on nausea and vomiting. Patient had a 14 week miscarriag e. Patient had nausea and vomiting at that time. She insisted on being discharged . She continued to have nausea and vomiting until she was seen in follow-up. Again she refused to be admitted. Today she continues to have nausea and vomiting. We agreed to admit her to the hospital for evaluation . blood 25 minutes was spent discussing admission, Arranging admission, discussing her medical situation, evaluating her. [id number] Pratima Pak [place] [address],[place] [address] 01/02/2021 12:23:27 01/02/2021 14:28:23 Abnormal uterine bleeding 1355798890 9100 N93.9 [id number] Lluvia Alcantar MD [place] [address],[place] [address] 01/02/2021 13:47:42 01/02/2021 14:51:36 Gestational trophoblastic disease 645806115 O01.9 Abnormal u terine bleeding 1372145384 9100 N93.9 [id number] Lluvia Alcantar MD [place] [address],[place] [address] 01/25/2021 09:43:27 02/01/2021 18:57:05 Retained products of conception 713007077 O72.2 Abnormal u terine bleeding 8178821086 9100 N93.9 [id number] Lluvia Alcantar MD [place] [address],[place] [address] 02/07/2021 10:24:23 02/07/2021 10:25:27 [id number] Lluvia Alcantar MD [place] [address],[place] [address] 02/13/2021 09:56:49 02/13/2021 11:24:08 Retained placenta 129949166 O72.0 Postoperative visit 1836 77482 Z09 Abnormal u terine bleeding 9212685244 9100 N93.9 [id number] Batsheva Diamond [place] [address],[place] [address] 08/30/2021 16:30:32 08/30/2021 17:45:47 Uncertain viability of 174387734 O36.80X0 Z3A.01 [id number] Pratima Pak [place] [address],[place] [address] 09/11/2021 17:23:11 09/11/2021 18:27:07 Uncertain viability of 438961633 O36.80X0 Z3A.01 [id number] Lluvia Alcantar MD [place] [address],[place] [address] 09/13/2021 10:36:11 09/16/2021 16:14:59 Missed miscarriage 46718260 O02.1 Uncontroll ed type 2 diabetes mellitus 155500954 E11.65 [id number] Lluvia Alcantar MD [place] [address],[place] [address] 09/25/2021 10:47:15 09/25/2021 12:10:54 Complete miscarriage 170860316 O03.9 Contracept ion care management 062967056 Z30.9 [id number] Lluvia Alcantar MD [place] [address],[place] [address] 12/23/2021 10:23:25 12/25/2021 15:36:25 Gynecologic examination 26559545 Z01.419 Sterilizat ion requested 117482776 Z30.2 [id number] Lluvia Alcantar MD [place] [address],[place] [address] 01/20/2022 12:19:11 01/20/2022 13:49:03 Preoperative state 24293595 Z78.9 Sterilizat ion requested 672600087 Z30.2 Type 2 carlo betes mellitus 88979833 E11.9 [id number] Lluvia Alcantar MD [place] [address],[place] [address] 02/17/2022 10:01:40 02/18/2022 18:11:44 Postoperative visit 164104440 Z09 Health Concerns Section Related Observation LastModified by Organization Detai ls LastModified Time None Recorded Concern Status LastModified by Organization Details LastModified Time None Recorded Advance Directives Directive None Recorded Payers Encounter Date Sequence Insurance Name Policy Number Policy Fuentes Covered Member ID Fuentes Member ID Guarantor Name 09/25/2021 1 [employer] - [employer] (PPO) Kelly Martin [id number] Kelly Martin 12/23/2021 1 [employer] - [employer] (PPO) Kelly Martin [id number] Kelly Martin 01/20/2022 1 [employer] - [employer] (PPO) Kelly Martin [id number] Kelly Martin 02/17/2022 1 [employer] - [employer] (PPO) Kelly Martin [id number] Kelly Martin Notes Date Note Type Note Provider Name and Address Organization Details Recorded Time 09/25/2021 text/html Here for Fu D an d C for mab one week ago. no bleeding until two days after D and C, has been off and on since, sometimes pretty heavy. Last D and C she had prolonged bleeding as well. NO fever, no pain. Has not contacted her PCP re DM yet. would like BC. Lluvia Alcantar MD [address], [place], [address], [facility] 09/25/2021 12:05:51 12/23/2021 text/html Patient is a 31y o who presents for an annual exam. She had a D and C in September, chg neg by 11/22. she is on OCP and having spotting, but otherwise doing ok. THey decided that with her history and medical issues they are done with TTC. they also care for their niece, so have 4 kids. he is too nervous to get a vasectomy, so she is wanting a tubal. Her A1c is down to 7. last pap-08/2020 sexually active-y contraception-ocp seatbelts-y exercise-y depression-denies domestic violence-denies tobacco-n concerns-n Lluvia Alcantar MD [address], [place], [address], [facility] 12/25/2021 08:38:24 01/20/2022 text/html preop bilateral LSC salpingectomy next thursday. Aic Down below 7. is still certain. doing well. feels well. Lluvia Alcantar MD [address], [place], [address], [facility] 01/20/2022 13:43:24 02/17/2022 text/html post op from LSC salpingectomuy on 01/27. doing fine, a little sore, no concerns. Lluvia Alcantar MD [address], [place], [address], [facility] 03/03/2022 13:29:21 OBGyn Episode Ob Episode Information Episode Created Date Number of Fetuses Patient Bloodtype Patient rh Status Prepregnancy Weight lbs Domestic Partner Domestic Partner Phone Father Name Zipper Cutter Status 08/22/19 21 1 CLOSED Fetus Data First Name Last Name Admitted to NICU Weight (g) Sex Living Outcome Pediatric Complications Fetus ID Race Codes Race Delivery Type Full Term 9781 Repeat Steve Calculation Initial Steve Date Initial Exam Date Initial Exam Provider Initial Ultrasound Date Last Menstrual Period Date Ultra Sound Weeks Gestation 0 Eighteen To Twenty Week Steve Update Ultra Sound Date Fundal Height At Umbil Quickening Date Ultra Sound Latest Weeks Gestation Final Steve Confirmed By Final Steve Confirmed Date Final Steve Date Ultra Sound Latest Days Gestation 0 0 Menstrual History Last Menstrual Date Menses Monthly On Bcp Conception Prior Menses Frequency Hcg Plus Date Menarche Onset Age Delivery Information Delivery Date Delivery Type Labor Anesthesia Weeks Gestation Incision Type Labor Labor Length Hrs Delivered By Post Complications Tubal Sterilization Discharge Date Comments 5 Diabetic preeclamp xu Unsure babies weight Discharge Information Feeding Method Contraceptive Method Maternal HG B and HCT Levels Ob Episode Information Episode Created Date Number of Fetuses Patient Bloodtype Patient rh Status Prepregnancy Weight lbs Domestic Partner Domestic Partner Phone Father Name Zipper Cutter Status 08/22/19 21 1 CLOSED Fetus Data First Name Last Name Admitted to NICU Weight (g) Sex Living Outcome Pediatric Complications Fetus ID Race Codes Race Delivery Type , Spontane ous 9783 Steve Calculation Initial Steve Date Initial Exam Date Initial Exam Provider Initial Ultrasound Date Last Menstrual Period Date Ultra Sound Weeks Gestation 0 Eighteen To Twenty Week Steve Update Ultra Sound Date Fundal Height At Umbil Quickening Date Ultra Sound Latest Weeks Gestation Final Steve Confirmed By Final Steve Confirmed Date Final Steve Date Ultra Sound Latest Days Gestation 0 0 Menstrual History Last Menstrual Date Menses Monthly On Bcp Conception Prior Menses Frequency Hcg Plus Date Menarche Onset Age Delivery Information Delivery Date Delivery Type Labor Anesthesia Weeks Gestation Incision Type Labor Labor Length Hrs Delivered By Post Complications Tubal Sterilization Discharge Date Comments 6 9.6 D&C Discharge Information Feeding Method Contraceptive Method Maternal HG B and HCT Levels Ob Episode Information Episode Created Date Number of Fetuses Patient Bloodtype Patient rh Status Prepregnancy Weight lbs Domestic Partner Domestic Partner Phone Father Name Zipper Cutter Status 10/10/19 21 1 O Positive 215 CLOSED Fetus Data First Name Last Name Admitted to NICU Weight (g) Sex Living Outcome Pediatric Complications Fetus ID Race Codes Race Delivery Type F Demise 34 grams 5 in [id number] Vaginal Delivery Problems Problem Notes Raymundo Gann pt has appt on 11/07 with MFM for u/s, 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, and DE @ 8:15am.MFM - rec delivery 36.0-37.6 HTN difficult to control Problem Name Start Date End Date Resolution Snomed Code Not e Past history of pre-eclampsia 09/17/2020 [id number] baseline pi h labs, ASA Past history of section 459391718 x2, repeat with tubal Type 2 diabetes mellitus 09/17/2020 02216219 MFM managing BS - Metformin 1000 mg BID, decrease lantus in PM to 74 units Steve Calculation Initial Steve Date Initial Exam Date Initial Exam Provider Initial Ultrasound Date Last Menstrual Period Date Ultra Sound Weeks Gestation 04/21/2021 10/09/2020 08/28/2020 06/20/2020 6 Eighteen To Twenty Week Steve Update Ultra Sound Date Fundal Height At Umbil Quickening Date Ultra Sound Latest Weeks Gestation Final Steve Confirmed By Final Steve Confirmed Date Final Steve Date Ultra Sound Latest Days Gestation 0 10/09/2020 04/21/19 22 0 Pre-macy Flowsheet Flowsheet Date 10/09/2020 Vance Score Blood Edema Fundus Height Fundus Units Glucose Ketones Leukocytes Nitrite Labor Signs Protein Cervic Dilation Cervic Effacement Cervic Station neg trace neg Type Weight in lbs Pre/Post Dialysis Refused Weight 219.609642870238 BP Diastolic BP Location Tested BP Systolic BP Type 79 118 Fetus Heart Rate Present A 165 Fetus Movement A No Comments Kelly is a 30yo at 1 2w2d by 6w US. She has DM2, history of PreE at term, is taking ASA. Has seen MFM and they are managing sugars and insulin. She has history of 2 prior CS. MFM wanted her to , but she wants a R CS. Also wants a tubal with it. Will sign papers in second half of . Labs today, with NIPT and baseline PIH labs. Anatomy US with Chandu. Flowsheet Date 10/31/2020 Vance Score Blood Edema Fundus Height Fundus Units Glucose Ketones Leukocytes Nitrite Labor Signs Protein Cervic Dilation Cervic Effacement Cervic Station Type Weight in lbs Pre/Post Dialysis Refused Weight 208.584281270907 BP Diastolic BP Location Tested BP Systolic BP Type 79 R arm 124 sitting Fetus Heart Rate Present Fetus Movement Comments Flowsheet Date 11/01/2020 Vance Score Blood Edema Fundus Height Fundus Units Glucose Ketones Leukocytes Nitrite Labor Signs Protein Cervic Dilation Cervic Effacement Cervic Station Type Weight in lbs Pre/Post Dialysis Refused BP Diastolic BP Location Tested BP Systolic BP Type Fetus Heart Rate Present Fetus Movement Comments Flowsheet Date 11/01/2020 Vance Score Blood Edema Fundus Height Fundus Units Glucose Ketones Leukocytes Nitrite Labor Signs Protein Cervic Dilation Cervic Effacement Cervic Station Type Weight in lbs Pre/Post Dialysis Refused Weight 209.282818905560 BP Diastolic BP Location Tested BP Systolic BP Type 80 R arm 123 sitting Fetus Heart Rate Present Fetus Movement Comments Menstrual History Last Menstrual Date Menses Monthly On Bcp Conception Prior Menses Frequency Hcg Plus Date Menarche Onset Age 0306/20/2020 Genetic Screening And Infection History Question Response Note Mental Retardation/Autism false Patient's Age Will Be 35 Years Or Older At Estim ated Date of Delivery false Thalassemia (Kenyan, Ukrainian, Mediterranean, Or Background): MCV < 80 false Neural Tube Defect (Meningomyelocele, Spina Bifi da, Or Anencephaly) false Congenital Heart Defect false Down Syndrome false Jono-Sachs (eg, Orthodoxy, Cajun, Slovak-Sarah) f alse Davidson Disease false Sickle Cell Disease Or Trait () false Hemophilia Or Other Blood Disorders false Muscular Dystrophy false Cystic Fibrosis false Westdale's Chorea false Intellectual Disability/Autism false If Yes, Was Person Tested For Fragile X? false Other Inherited Genetic Or Chromosomal Disorder false Maternal Metabolic Disorder (eg, Type 1 Diabetes , PKU) false Patient Or Baby's Father Had A Child With Defects Not Listed Above false Recurrent Loss, Or A Stillbirth false Medications (including Suppl ements, Vitamins, Herbs, OTC Drugs), Illicit/Recreational Drugs, Alcohol true If Yes, Agent(s) And Strength/Dosage false Any Other Genetic History false Live With Someone With TB Or Exposed To TB false Patient Or Partner Has History Of Genital Herpes false Rash Or Viral Illness Since Last Menstrual Perio d false History Of STD, Gonorrhea, Chlamydia, HPV, Syphi lis false Other Infection History false History of HIV false History of Hepatitis false Prior GBS-infected child false Hemoglobinopathy Or Carrier false Other Structural Defect false Recent Travel History Outside of Country false Delivery Information Delivery Date Delivery Type Labor Anesthesia Weeks Gestation Incision Type Labor Labor Length Hrs Delivered By Post Complications Tubal Sterilization Discharge Date Comments 1 Induce d Regional-Ep idural 16.3 true Alexis Kelly SRINATH IUFD @ 15 wks Discharge Information Feeding Method Contraceptive Method Maternal HG B and HCT Levels Ob Episode Information Episode Created Date Number of Fetuses Patient Bloodtype Patient rh Status Prepregnancy Weight lbs Domestic Partner Domestic Partner Phone Father Name Zipper Cutter Status 08/22/19 21 1 CLOSED Fetus Data First Name Last Name Admitted to NICU Weight (g) Sex Living Outcome Pediatric Complications Fetus ID Race Codes Race Delivery Type 3798.83 3 Full Term 9780 Primary Steve Calculation Initial Steve Date Initial Exam Date Initial Exam Provider Initial Ultrasound Date Last Menstrual Period Date Ultra Sound Weeks Gestation 0 Eighteen To Twenty Week Steve Update Ultra Sound Date Fundal Height At Umbil Quickening Date Ultra Sound Latest Weeks Gestation Final Steve Confirmed By Final Steve Confirmed Date Final Steve Date Ultra Sound Latest Days Gestation 0 0 Menstrual History Last Menstrual Date Menses Monthly On Bcp Conception Prior Menses Frequency Hcg Plus Date Menarche Onset Age Delivery Information Delivery Date Delivery Type Labor Anesthesia Weeks Gestation Incision Type Labor Labor Length Hrs Delivered By Post Complications Tubal Sterilization Discharge Date Comments 2 Discharge Information Feeding Method Contraceptive Method Maternal HG B and HCT Levels Ob Episode Information Episode Created Date Number of Fetuses Patient Bloodtype Patient rh Status Prepregnancy Weight lbs Domestic Partner Domestic Partner Phone Father Name Zipper Cutter Status 08/22/19 21 1 CLOSED Fetus Data First Name Last Name Admitted to NICU Weight (g) Sex Living Outcome Pediatric Complications Fetus ID Race Codes Race Delivery Type 3826.95 5704 Full Term 9779 Vaginal Delivery Steve Calculation Initial Steve Date Initial Exam Date Initial Exam Provider Initial Ultrasound Date Last Menstrual Period Date Ultra Sound Weeks Gestation 0 Eighteen To Twenty Week Steve Update Ultra Sound Date Fundal Height At Umbil Quickening Date Ultra Sound Latest Weeks Gestation Final Steve Confirmed By Final Steve Confirmed Date Final Steve Date Ultra Sound Latest Days Gestation 0 0 Menstrual History Last Menstrual Date Menses Monthly On Bcp Conception Prior Menses Frequency Hcg Plus Date Menarche Onset Age Delivery Information Delivery Date Delivery Type Labor Anesthesia Weeks Gestation Incision Type Labor Labor Length Hrs Delivered By Post Complications Tubal Sterilization Discharge Date Comments 9 Discharge Information Feeding Method Contraceptive Method Maternal HG B and HCT Levels Ob Episode Information Episode Created Date Number of Fetuses Patient Bloodtype Patient rh Status Prepregnancy Weight lbs Domestic Partner Domestic Partner Phone Father Name Zipper Cutter Status 07/16/19 22 1 CLOSED Fetus Data First Name Last Name Admitted to NICU Weight (g) Sex Living Outcome Pediatric Complications Fetus ID Race Codes Race Delivery Type , Spontane ous 19803 Steve Calculation Initial Steve Date Initial Exam Date Initial Exam Provider Initial Ultrasound Date Last Menstrual Period Date Ultra Sound Weeks Gestation 0 Eighteen To Twenty Week Steve Update Ultra Sound Date Fundal Height At Umbil Quickening Date Ultra Sound Latest Weeks Gestation Final Steve Confirmed By Final Steve Confirmed Date Final Steve Date Ultra Sound Latest Days Gestation 0 0 Menstrual History Last Menstrual Date Menses Monthly On Bcp Conception Prior Menses Frequency Hcg Plus Date Menarche Onset Age Delivery Information Delivery Date Delivery Type Labor Anesthesia Weeks Gestation Incision Type Labor Labor Length Hrs Delivered By Post Complications Tubal Sterilization Discharge Date Comments 2 Discharge Information Feeding Method Contraceptive Method Maternal HG B and HCT Levels
[2024-11-03 13:38] VITALS: BMI 37.3
--- OUTSIDE RECORDS SUMMARY | 2024-11-18 02:38 | XMS_ITS | Clinical Summary ---
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
--- OUTSIDE RECORDS SUMMARY | 2024-11-18 02:38 | XMS_ITS | Clinical Summary ---
Author Organization [facility] Address [address] [place] [id number] Care Team Providers Care Rotary Slicing Machine Operator Name Role Phone Renteta Owen Primary Care Provider [phone] Allergies Active Allergy Reactions Criticality Noted Date Comments Sertraline Other (see comment) Medium 08/13/2023 Severe chest pain Medications omeprazole 40 MG capsule Take 1 capsule (40 mg total) by mouth daily. Active Lancets (setObjectTOUCH DELICA PLUS [id number]) [facility] Active metoclopramide (REGLAN) 10 MG tablet Take 1 tablet (10 mg total) by mouth 3 (three) times daily. Active RELION INSULIN SYR 0.3ML/31G 31G X 5/16 0.3 ML MiscIndications: Type 2 diabetes mellitus with hyperglycemia, with long-term current use of insulin ([facility] HHS/[facility]) USE 1 AT BEDTIME 100 each 3 023 Active Insulin Pen Needle (PEN NEEDLES 31GX5/16) 31G X 8 MM MiscIndications: Type 2 diabetes mellitus with hyperglycemia, with long-term current use of insulin ([facility] HHS/HCC) To be used with Novolog TID 100 each 2 023 Active atorvastatin (LIPITOR) 20 MG tabletIndication s:Mixed hyperlipidemia Take one tablet once daily 30 tablet 5 025 Active Glucose Blood (ONETOUCH VERIO) test stripIndications :Type 2 diabetes mellitus with hyperglycemia, with long-term current use of insulin ([facility] HHS/HCC) 1 strip by Other route 3 (three) times daily. Use as instructed 100 strip 11 025 Active Insulin Pen Needle (TRUEPLUS 5-BEVEL PEN NEEDLES) 32G X 4 MM MiscIndications: Type 2 diabetes mellitus with hyperglycemia, with long-term current use of insulin (CMS/HCC HHS/HCC) 1 Needle by Other route every evening. 300 each 1 025 Active ondansetron (ZOFRAN-ODT) 4 MG disintegrating tablet DISSOLVE 1 TO 2 TABLETS IN MOUTH EVERY 8 HOURS NEEDED FOR NAUSEA AND VOMITING Active losartan (COZAAR) 25 MG tabletIndication s:Type 2 diabetes mellitus with hyperglycemia, with long-term current use of insulin (CMS/HCC HHS/HCC) Take 1 tablet by mouth once daily 30 tablet 2 025 Active Blood Glucose Monitoring Suppl (CONTOUR PLUS BLUE) w/Device KitIndications:T ype 2 diabetes mellitus with hyperglycemia, with long-term current use of insulin (CMS/HCC HHS/HCC),Uncontr olled type 2 diabetes mellitus with hyperglycemia (CMS/HCC HHS/HCC) 1 each by Does not apply route 3 (three) times daily. 1 kit 025 Active Glucose Blood (CONTOUR PLUS TEST) test stripIndications :Type 2 diabetes mellitus with hyperglycemia, with long-term current use of insulin (CMS/HCC HHS/HCC),Uncontr olled type 2 diabetes mellitus with hyperglycemia (CMS/HCC HHS/HCC) USE 1 STRIP TO CHECK GLUCOSE THREE TIMES DAILY NEEDED. USE INSTRUCTED 100 strip 025 Active insulin lispro, 1 Unit Dial, (HUMALOG) 100 UNIT/ML injection (PEN)Indications :Uncontrolled type 2 diabetes mellitus with hyperglycemia (CMS/HCC HHS/HCC) INJECT 10 UNITS SUBCUTANEOUSLY THREE TIMES DAILY BEFORE MEAL(S) 15 mL 025 Active glipiZIDE (GLUCOTROL) 5 MG tabletIndication s:Uncontrolled type 2 diabetes mellitus with hyperglycemia (CMS/HCC HHS/HCC) Take 1 tablet (5 mg total) by mouth every morning before breakfast. 90 tablet 3 025 Active metFORMIN (GLUCOPHAGE) 500 MG tabletIndication s:Uncontrolled type 2 diabetes mellitus with hyperglycemia (CMS/HCC HHS/HCC) Take two tablets twice daily 360 tablet 3 025 Active Insulin Glargine, 1 Unit Dial, (TOUJEO SOLOSTAR) 300 UNIT/ML Solution Pen-injectorIndi cations:Uncontro lled type 2 diabetes mellitus with hyperglycemia (CMS/HCC HHS/HCC) Inject 24 Units into the skin daily. 4.5 mL 1 Active metFORMIN (GLUCOPHAGE) 500 MG tabletIndication s:Uncontrolled type 2 diabetes mellitus with hyperglycemia (CMS/HCC HHS/HCC) Take 1 tablet (500 mg total) by mouth 2 (two) times daily with meals. 360 tablet 11 025 2024 Discontinued(R eorder) glipiZIDE (GLUCOTROL) 5 MG tabletIndication s:Uncontrolled type 2 diabetes mellitus with hyperglycemia (CMS/HCC HHS/HCC) Take 1 tablet (5 mg total) by mouth 2 (two) times daily before meals. 90 tablet 5 025 2024 Discontinued(R eorder) Glucose Blood (CONTOUR PLUS TEST) test stripIndications :Type 2 diabetes mellitus with hyperglycemia, with long-term current use of insulin (CMS/HCC HHS/HCC),Uncontr olled type 2 diabetes mellitus with hyperglycemia (CMS/HCC HHS/HCC) 1 strip by Other route as needed. 3 (three) times daily. Use as instructed 100 strip 1 025 2024 Discontinued insulin lispro, 1 Unit Dial, (HUMALOG) 100 UNIT/ML injection (PEN)Indications :Uncontrolled type 2 diabetes mellitus with hyperglycemia (CMS/HCC HHS/HCC) Inject 10 Units into the skin 3 (three) times daily before meals. 3 mL 2 025 2024 Discontinued Insulin Glargine, 1 Unit Dial, (TOUJEO SOLOSTAR) 300 UNIT/ML Solution Pen-injectorIndi cations:Uncontro lled type 2 diabetes mellitus with hyperglycemia (CMS/HCC HHS/HCC) Inject 20 Units into the skin daily. 3 mL 1 025 2024 Discontinued(R eorder) Active Problems Problem Noted Date Diagnosed Date [...] BMI 36.6 (62, 213 lbs) Diabetes mellitus ([facility]) Resolved Problems Problem Noted Date Diagnosed Date Resolved Date Hyperemesis gravidarum ([facility]) 10/22/2020 10/22/2020 Nausea and vomiting 10/22/2020 12/04/19 21 14 weeks gestation of ([facility]) 10/22/2020 12/03/2020 Encounters Date Type Department Care Team Description 11/16/2024 7:00 AM CDT Office Visit [facility] Family & Internal Medicine [address] [phone] Renetta Owen APNP Follow Up; Diabetes 11/16/2024 Travel 10/10/2024 Telephone [facility] Family & Internal Medicine [address] [phone] Renetta Owen APNP Medication Reconciliation 10/08/2024 9:13 AM CDT - 10/08/2024 9:51 AM CDT Hospital Encounter [facility] Care [address] [place] [id number] Joseph Modi MD Dental Problem Discharge Disposition: Home or Self Care (Routine Discharge) 10/08/2024 Travel 09/21/2024 7:40 AM CDT Office Visit [facility] Family & Internal [address] [phone] Renetta Owen APNP Diabetes; Vomiting (Pt reports she began vomiting on Thursday. She is not aware of any fever); Rash (Pt noticed a rash on the right side of her abdomen about a month ago.) 09/21/2024 Travel 09/02/2024 Telephone [facility] & Internal [address] [phone] Renetta Owen APNP Prior Authorization (Toubereo Max SoloStar 300 unit/mL pen inj) 08/25/2024 Orders Only [facility] Internal [address] [phone] Renetta Owen APNP from Last 3 Months Immunizations Immunization Administration [...] Packs/Day Years Used Date Smoking Tobacco: Never Passive Smoke Exposure: Past Smokeless Tobacco: Never Tobacco Cessation:Counseling Given: Not Answered Alcohol Use Standard Drinks/Week Comments Yes 0 (1 standard drink = 0.6 oz pur e alcohol) rare use AUDIT-C Answer Date Recorded Q1: How often [...] Sign Reading Time Taken Comments Blood Pressure 118/80 11/16/2024 7:30 AM CDT Pulse 85 11/16/2024 7:30 AM CDT Temperature 36.5 C (97.7 F) 10/08/2024 9:16 AM CDT Respiratory Rate 16 11/16/2024 7:30 AM CDT Oxygen Saturation 98% 11/16/2024 7:30 AM CDT Inhaled Oxygen Concentration - - Weight 97.3 kg (214 lb 6.4 oz) 11/16/2024 7:30 A M CDT Height 162.6 cm (5' 4) 11/16/2024 7:30 AM CDT Body Mass Index 36.8 11/16/2024 7:30 AM CDT Plan of Treatment Upcoming Encounters Date Type Department Care Team (Late st Contact Info) Description 12/28/2024 10:20 AM CDT Office Visit [facility] Family & Internal Medicine - [address] [phone] Renetta Owen OMAIRA [facility] [place] [address] Health Maintenance Due Date Last Done Comments Kidney Health Evaluation 1988 Annual Physical 1991 Diabetes: Retinopathy Eye Exam 2006 HPV Vaccines (1 - 3-dose SCDM series) 2015 Cervical Cancer Screening Pap Smear (Age 30 to 64) Every 3 Years 08/22/2023 08/21/2020, 08/21/2020, 08/21/2020 Lipid Panel 08/12/2024 08/13/2023, 11/12, 06/23/2020 Hemoglobin A1C 12/22/2024 09/21/2024, 06/12, 05/04/2024, Additional history exists DTaP, Tdap and Td Vaccines (3 - Td or Tdap) 01/07/2025 01/07/2015, 06/27/1992 COVID-19 Vaccine ( season) 2025 02/20/2021, 05/25/2020, 05/04/2020, Additional history [...] Hepatitis C Completed 10/09/2020, 10/09/2020 PHQ-2 (Physician Stebbins) Completed 05/04/2024 Meningococcal B Vaccine Aged Out No l [...] upon discharge from hospital General No Marina Holden, glue cook Procedure Name Priority Date/Time Associated Diagnosis Comments COLLECT.CAPILLARY (FNGR,HEEL,EAR) Routine 09/21/2024 7:54 AM CDT Uncontrolled type 2 diabetes mellitus with hyperglycemia ([facility]/HCC HHS/HCC) HEMOGLOBIN, GLYCOSYLATED Routine 09/21/2024 Uncontrolled type 2 diabetes mellitus with hyperglycemia (CMS/HCC HHS/HCC) LIPID PANEL Routine 08/13/2023 10:01 AM CDT Mixed hyperlipidemia OUTSIDE CYTOPATH CERV/VAG INTERPRET (PAP) 08/21/2020 from Last 3 Months or Most Recently Relevant to Health Maintenance Results * HEMOGLOBIN, GLYCOSYLATED (09/21/2024) ESTIMATED AVG GLUCOSE 12.2 MG-[facility] 09/21/2024 [facility] Final Resul t [place] [id number] [place] [address], * (ABNORMAL) LIPID PANEL (08/13/2023 10:01 AM CDT) CHOLESTEROL 232(H) <200 MG/DL 08/13/2023 2:29 PM CDT [facility] TRIGLYCERIDES 106 <150 MG/DL 08/13/2023 2:29 PM CDT [facility] HDL 47 >40 MG/DL 08/13/2023 2:29 PM CDT [facility] LDL-C 164(H) <100 MG/DL 08/13/2023 2:29 PM CDT [facility] VLDL CALCULATION 21 5 - 28 MG/DL 08/13/2023 2:29 PM CDT [facility] CHOL/HDL RATIO 4.9(H) 0.0 - 4.0 08/13/2023 2:29 PM CDT [facility] LDL/HDL 3.5(H) 0.41 - 2.13 08/13/2023 2:29 PM CDT [facility] NON HDL CHOLESTEROL 185(H) <140 MG/DL 08/13/2023 2:29 PM CDT [facility] 08/13/2023 10:0 1 AM CDT [facility]etta [facility] Final Resul t [facility] [address] [place] [address], [place] [phone] * PAP SMEAR WITH HPV (08/21/2020) 08/21/2020 [facility] Scanned SCANNING Final Resu lt from Last 3 Months or Most Recently Relevant to Health Maintenance Insurance [facility] BLUE [facility] AETNA Advance Directives * Full Code (Latest Code Status on File) Date Activated Date Inactivated Comments 04/24/2021 12:25 AM 04/24/2021 2:44 PM Care Teams Rotary Slicing Machine Operator Relationship Specialty Start Date End Date Renetta Owen APNP [address] [place] [id number] PCP - General NURSE PRACTITIONER 06/22/20
--- OUTSIDE RECORDS SUMMARY | 2024-11-18 02:38 | XMS_ITS | Encounter Summary ---
Author Organization [facility] Address [address] [place] [address] Care Team Providers Care Loan Workout Officer Name Role Phone Renetta Owen NEW CAR SALES MANAGER-WOOL WASHER FEEDER Primary Care Provider Reason for Visit * Reason Comments Refill Request Encounter Details Date Type Department Care Team (Late st Contact Info) Description 09/28/2020 Refill [facility] Maternal & Care [address] [place] [phone] [place] [address] [place] [address] [phone] Refill Request Social History Tobacco Use Types Packs/Day Years Used Date Smoking Tobacco: Never Smokeless Tobacco: Never Alcohol Use Standard Drinks/Week Comments No 0 (1 standard drink = 0.6 oz pur e alcohol) Comments No Sex and Gender Information Value Date Recorded Sex Assigned at Not on file 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
--- OUTSIDE RECORDS SUMMARY | 2024-11-18 02:38 | XMS_ITS | Clinical Summary ---
Author Organization [facility] Address [address] [facility] [place] [address] Care Team Providers Care Pharmacist In Charge Name Role Phone Renetta Owen GETTERER-JOURNEYMAN MEAT CUTTER Primary Care Provider Source Comments [facility],non-owned Affiliates and Associated Physician Practices is amultiple site organization consisting of ambulatory clinics and hospital sitesin [place], [place], [place] and [place]. This disclosure is being madepursuant to the Care Everywhere program and may not contain all information available regarding this patient. 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 Gender Identity Not on file Sexual Orientation [...] of 3 - 19+ 3-dose series) 2007 HPV VACCINE (1 - 3-dose SCDM series) 2015 PAP SMEAR 08/22/2023 08/21/2020, 08/21/2020 COVID-19 VACCINE (3 - 2023-2 5 season) 2023 05/25/2020, 05/04/2020 DEPRESSION SCREENING 04/13/2024 INFLUENZA VACCINE (#1) 2024 DTAP/TDAP/TD VACCINES (2 - T d [...] MEDICAID - PENDING MEDICAID LIMITED BENEFIT - [place] - [place] MED[place]ID LIMITED BENEFIT [facility] [place] [address] MEDICAID - [facility] [place] [address] Advance Directives * Full Code (Latest Code Status on File) Date Activated Date Inactivated Comments 01/04/2015 7:50 AM 01/07/2015 4:04 PM * Full Code Date Activated Date Inactivated Comments 01/03/2015 5:05 PM 01/04/2015 7:50 AM * Full Code Date Activated Date Inactivated Comments 01/03/2015 2:57 PM 01/03/2015 5:05 PM Care Teams Pharmacist In Charge Relationship Specialty Start Date End Date Renetta Owen APRN-JOURNEYMAN MEAT CUTTER [address] [place] [id number] PCP - General 11/19/20
[2024-11-18 08:06] VITALS: BP 126/80; PULSE 81; RESP 12; TEMP 36; O2SAT 99; BMI 36.3
[2024-11-18] MEDS: LACTATED RINGERS 1,000 ML 150 ML IV CONT (08:27)
[2024-11-18 08:30] LABS: BEDSIDEPREGUCG Negative (Negative)
--- NOTE | 2024-11-18 08:43 | P.PNAN_ITS ---
Anes - Initial Pre Proc Eval Procedure: Operation Date: 11/18/24 09:30 Proposed Procedures p Colonoscopy - Hi Mendoza MD Date/Time: 11/18/24 08:43 Surgeon: Hi Mendoza MD Pre Op Diagnosis: Hemorrhage of anus and rectum Patient Data Age: 34 Gender: F Height: 1.63 m Weight: 95.9 kg Last Vital Signs Temp 36.0 C L 11/18/24 08:06 Pulse 81 11/18/24 08:06 Resp 12 11/18/24 08:06 BP 126/80 11/18/24 08:06 Pulse Ox 99 11/18/24 08:06 O2 Del Method Room Air 11/18/24 08:06 Allergies Allergy/AdvReac Type Severity Reaction Status Date / Time No Known Allergies Allergy Unknown Verified 11/18/24 08:16 Home Medications ?Medication ?Instructions ?Recorded ?Confirmed ?Type metformin 500 mg tablet,extended 1,000 mg PO BID 11/21/20 11/18/24 History release 24 hr atorvastatin 10 mg tablet 10 mg PO HS 01/14/22 11/18/24 History insulin glargine 100 unit/mL (3 20 unit subcut HS 01/14/22 11/18/24 History mL) subcutaneous pen (Lantus Solostar U-100 Insulin) lisinopril 10 mg tablet 10 mg PO DAILY 01/14/22 11/18/24 History prochlorperazine 25 mg rectal 25 mg RECTAL Q12H PRN nausea and 05/20/23 07/18/24 Rx suppository (Compazine) vomiting #12 ea omeprazole 40 mg capsule,delayed 40 mg PO DAILY #90 caps 05/19/24 11/18/24 Rx release ondansetron 4 mg disintegrating 8 mg (2 x 4 mg) PO Q8H PRN nausea 05/19/24 07/18/24 Rx tablet and vomiting #30 tabs glipizide 5 mg tablet 5 mg PO DAILY 07/18/24 11/18/24 History insulin lispro 100 unit/mL 1 sliding scale dose subcut .TID 11/03/24 11/18/24 History subcutaneous pen (Humalog KwikPen with meals (U-100) Insulin) metoclopramide HCl 10 mg tablet 10 mg PO QID 11/03/24 11/18/24 History (Reglan) Laboratory Tests 11/18/24 08:26 POC Urine HCG, Qual Negative (Negative) Patient hx anesthesia problems: none Family hx anesthesia problems: none Results Review: All pre-operative results and documents have been reviewed as part of the pre- operative evaluation. [facility] Past Medical History Medical History Irritable bowel syndrome with constipation Family hx of colon cancer Bright red blood per rectum Sterilization GERD (gastroesophageal reflux disease) Hypertension Hyperlipidemia DUB (dysfunctional uterine bleeding) Obese Gastroparesis Nausea and vomiting hemorrhage Missed at 14 weeks gestation. Approx two weeks ago Type 2 diabetes mellitus Surgical History Surgical History Delivery by section Family History Family History Mother Diabetes mellitus Father Diabetes mellitus Sibling Diabetes mellitus Social History Social History Social History: She lives at home with her and 4 children (3 biologic and her niece that she is guardian). Lifelong nonsmoker. Rare alcohol use. No drug use. She is a full code. She nominated her to be the individual would make medical decisions for her if she is unable. Smoking status: Never smoker Second hand tobacco smoke exposure: No Alcohol intake: never Substance use: never Substance use type: does not use Living arrangements: with family Gender identity (if verbalized by the patient): Female Sexual Orientation (if Verbalized by the Patient): Straight or Heterosexual Spiritual care concerns: No Anes - Eval Final PreProcedure Day of Procedure 11/18/24 08:43 Patient weight: obese Heart: regular rate and rhythm Lungs: clear to auscultation Airway: Mallampati scale class II Neurological: alert and oriented Last oral intake: >/= 8 hours ASA classification: III Emergent: no Anesthetic plan: proceed Anesthesia type and monitoring: general GIVS and standard monitoring Results Review: All pre-operative results and documents have been reviewed as part of the pre- operative evaluation. Informed Consent: The patient's anesthetic plan and its attendant risks and benefits were discussed with the patient/family/POA. Questions were solicited and answers provided to the satisfaction of the patient/family/POA.
--- NOTE | 2024-11-18 08:50 | SUR.PREOP ---
patients blood glucose is 271, pt stated my normal is usually in the 300-400's. Patient was asymptomatic. Dr. Rao notified and no new orders were given.
--- NOTE | 2024-11-18 09:08 | PM.IMHP ---
H&P: HPI History of Present Illness Date/Time: 11/18/24 09:08 Chief Complaint: Family history of colon cancer Narrative: This patient has family history of colorectal cancer. her father had colorectal cancer diagnosed at age 50. Review of Systems Review of Systems: All systems reviewed & are unremarkable except as noted in HPI and below PMFSH Past Medical History Medical History Irritable bowel syndrome with constipation Family hx of colon cancer Bright red blood per rectum Sterilization GERD (gastroesophageal reflux disease) Hypertension Hyperlipidemia DUB (dysfunctional uterine bleeding) Obese Gastroparesis Nausea and vomiting hemorrhage Missed at 14 weeks gestation. Approx two weeks ago Type 2 diabetes mellitus Surgical History Surgical History Delivery by section Family History Family History Mother Diabetes mellitus Father Diabetes mellitus Sibling Diabetes mellitus Social History Social History Social History: She lives at home with her and 4 children (3 biologic and her niece that she is guardian). Lifelong nonsmoker. Rare alcohol use. No drug use. She is a full code. She nominated her to be the individual would make medical decisions for her if she is unable. Smoking status: Never smoker Second hand tobacco smoke exposure: No Alcohol intake: never Substance use: never Substance use type: does not use Living arrangements: with family Gender identity (if verbalized by the patient): Female Sexual Orientation (if Verbalized by the Patient): Straight or Heterosexual Spiritual care concerns: No Meds Home Medications and Allergies Home Medications ?Medication ?Instructions ?Recorded ?Confirmed ?Type metformin 500 mg tablet,extended 1,000 mg PO BID 11/21/20 11/18/24 History release 24 hr atorvastatin 10 mg tablet 10 mg PO HS 01/14/22 11/18/24 History insulin glargine 100 unit/mL (3 20 unit subcut HS 01/14/22 11/18/24 History mL) subcutaneous pen (Lantus Solostar U-100 Insulin) lisinopril 10 mg tablet 10 mg PO DAILY 01/14/22 11/18/24 History prochlorperazine 25 mg rectal 25 mg RECTAL Q12H PRN nausea and 05/20/23 07/18/24 Rx suppository (Compazine) vomiting #12 ea omeprazole 40 mg capsule,delayed 40 mg PO DAILY #90 caps 05/19/24 11/18/24 Rx release ondansetron 4 mg disintegrating 8 mg (2 x 4 mg) PO Q8H PRN nausea 05/19/24 07/18/24 Rx tablet and vomiting #30 tabs glipizide 5 mg tablet 5 mg PO DAILY 07/18/24 11/18/24 History insulin lispro 100 unit/mL 1 sliding scale dose subcut .TID 11/03/24 11/18/24 History subcutaneous pen (Humalog KwikPen with meals (U-100) Insulin) metoclopramide HCl 10 mg tablet 10 mg PO QID 11/03/24 11/18/24 History (Reglan) Allergies Allergy/AdvReac Type Severity Reaction Status Date / Time No Known Allergies Allergy Unknown Verified 11/18/24 08:16 Vital Signs Vital Signs - 24 hr 11/18/24 08:06 Temperature 96.8 F L Pulse Rate 81 Respiratory Rate 12 Blood Pressure 126/80 Pulse Oximetry 99 Oxygen Delivery Room Air Exam Const: General: cooperative and healthy appearing Resp: Effort & Inspection: normal respiratory effort and able to speak in complete sentences Auscultation: clear to auscultation bilaterally Cardio: Rate: regular rate Rhythm: regular rhythm GI: Inspection: normal to inspection GI Palp: No No hepatosplenomegaly present Auscultation: normal bowel sounds Rectal Exam: deferred Skin: General skin exam: normal color Psych: Appearance: grossly normal Mental Status: mental status grossly normal Assessment and Plan Assessment and plan (1) Family hx of colon cancer: Code(s): Z80.0 - Family history of malignant neoplasm of digestive organs Status: Acute Assessment and Plan: The patient is deemed a good candidate for the procedure. Consent signed. Will proceed.
[2024-11-18 09:29] VITALS: BP 92/60; PULSE 78; RESP 21; O2SAT 99
[2024-11-18 09:39] VITALS: BP 110/84; PULSE 77; RESP 19; O2SAT 99
--- NOTE | 2024-11-18 09:41 | SUR.PHASEII ---
Dr. Rao notified of post op blood sugar. No new orders at this time.
[2024-11-18 09:49] VITALS: BP 105/69; PULSE 74; RESP 17; O2SAT 99
== END 2024-11-18 09:55 | disposition home or self-care (01) ==
PROVIDERS: Anesthesiology; PCP Registered Nurse; Referring Provider Nurse Practitioner; Visit Provider Internal Medicine Gastroenterology
PROC: 0DJD8ZZ Inspection of Lower Intestinal Tract, Via Natural or Artificial Opening Endoscopic (ICD-10-PCS; CPT 45378; principal; 2024-11-18 09:30)
DX: Z12.11 Encounter for screening for malignant neoplasm of colon (principal); I10 Essential (primary) hypertension; E78.5 Hyperlipidemia, unspecified; E11.9 Type 2 diabetes mellitus without complications; K58.1 Irritable bowel syndrome with constipation; K21.9 Gastro-esophageal reflux disease without esophagitis; K31.84 Gastroparesis; E66.9 Obesity, unspecified; Z68.36 Body mass index [BMI] 36.0-36.9, adult; Z79.84 Long term (current) use of oral hypoglycemic drugs; Z79.4 Long term (current) use of insulin; Z98.890 Other specified postprocedural states; Z80.0 Family history of malignant neoplasm of digestive organs
CPT/HCPCS: 45378; 82948; J2704; J7120